=== PATIENT | female | born 1995 | race Two or more races ===

== ENCOUNTER → 2020-04-14 15:22 | Outpatient (BNVA) | payer OTHER, SELFPAY | PROVIDERS: Visit Provider Hospitalist | DX: J45.909 Unspecified asthma, uncomplicated (principal); J38.5 Laryngeal spasm; Z79.899 Other long term (current) drug therapy; Z23 Encounter for immunization | CPT/HCPCS: 90686; 99202 ==

== ENCOUNTER 2020-04-14 16:35 | Outpatient (REF) | payer OTHER, SELFPAY ==
[2020-04-14 17:53] LABS: MANUAL DIFF FLAG NO
[2020-04-14 18:03] LABS: Basophils Percent Auto 0.2 % (0-2); Eosinophils Percent Auto 0.2 % (0-4); Hematocrit 38.8 % (37-47); Hemoglobin 12.4 g/dl (12.0-16.0); Imm Gran Abs Auto 0.02 X10*3/uL (0.00-0.03); Imm Gran Pct Auto 0.3 % (0.0-0.4); Lymphocytes Absolute Auto 2.3 X10*3/uL (1.2-4.9); Mean Corpuscular Hemoglobin 28.4 pg (27.0-33.0); Mean Platelet Volume 10.2 fL (9.4-12.3); Monocytes Absolute Auto 0.4 X10*3/uL (0.1-1.2); Monocytes Percent Auto 6.7 % (2-11); Neutrophils Absolute Auto 3.4 X10*3/uL (2.0-8.3); Neutrophils Percent Auto 55.6 % (45-73); Platelet Count 313 X10*3/uL (160-400); Red Blood Count 4.36 X10*6/uL (4.20-5.50); Red Cell Distribution Width 12.6 % (11.0-16.0); White Blood Count 6.1 X10*3/uL (4.8-10.8)
[2020-04-14 19:06] LABS: Erythrocyte Sedimentation Rate 13 MM/HR (0-20)
== END 2020-04-14 16:36 | disposition home or self-care (01) ==
LOC: HO.LAB 16:35
PROVIDERS: Visit Provider Hospitalist
DX: J45.909 Unspecified asthma, uncomplicated (principal)
CPT/HCPCS: 36415; 82785; 85025; 85652; 86003

== ENCOUNTER 2020-04-27 15:57 | Outpatient (REF) | payer OTHER, SELFPAY ==
--- NOTE | 2020-04-27 17:36 | PFT_ITS ---
INDICATION: Asthma. SPIROMETRY: The FEV1 to FVC of 88% with an FEV1 of 2.64 L, which is 93% predicted, and an FVC 3.01 L, which is 92% predicted. No significant response to bronchodilators noted. Maximum voluntary ventilation 99% predicted. LUNG VOLUMES: Total lung capacity 103% predicted with residual volume of 134% predicted. Expiratory reserve volume 42% predicted. DIFFUSION CAPACITY: DLCO 105% predicted. COMPARISONS: None. INTERPRETATION: No obstructive ventilatory defect. No significant response to bronchodilators noted. Normal maximum voluntary ventilation. Lung volumes do demonstrate some air trapping likely secondary to small airways disease. Diffusion capacity is within normal limits. If asthma is in the differential, methacholine challenge may be helpful in assessing for hyper-reactive airways, otherwise clinical correlation warranted. Hernán Sarmiento MD MR/MODL / [id number]
== END 2020-04-27 15:58 | disposition home or self-care (01) ==
LOC: HO.RESP 15:57
PROVIDERS: Visit Provider Hospitalist
DX: J45.909 Unspecified asthma, uncomplicated (principal)
CPT/HCPCS: 94060; 94727; 94729

== ENCOUNTER → 2020-05-11 15:41 | Outpatient (BNVA) | payer OTHER, SELFPAY | PROVIDERS: Visit Provider Hospitalist | DX: J45.909 Unspecified asthma, uncomplicated (principal); J38.5 Laryngeal spasm; T78.40XA Allergy, unspecified, initial encounter | CPT/HCPCS: 99212 ==

== ENCOUNTER → 2020-09-08 15:24 | Outpatient (BNVA) | payer OTHER, SELFPAY | PROVIDERS: Visit Provider Hospitalist | DX: J45.40 Moderate persistent asthma, uncomplicated (principal); J38.5 Laryngeal spasm; K21.9 Gastro-esophageal reflux disease without esophagitis | CPT/HCPCS: 99212 ==

== ENCOUNTER → 2020-12-10 15:06 | Outpatient (BNVA) | payer OTHER, SELFPAY | PROVIDERS: Visit Provider Hospitalist | DX: R09.81 Nasal congestion (principal); K21.9 Gastro-esophageal reflux disease without esophagitis; T78.40XA Allergy, unspecified, initial encounter; X58.XXXA Exposure to other specified factors, initial encounter; J45.909 Unspecified asthma, uncomplicated; J38.5 Laryngeal spasm; Z79.899 Other long term (current) drug therapy | CPT/HCPCS: 99212 ==

== ENCOUNTER 2021-04-19 12:49 | Outpatient (RCR) | payer OTHER, SELFPAY ==
--- NOTE | 2021-04-20 12:27 | MHC.SP.ADU ---
Referring provider: Hernán Santos MD Reason for Referral: Voice Assessment, c/o laryngospasm Type of Treatment: 54618 Behavioral and Qualitative Analysis of Voice and Resonance Date of Plan of Treatment: 04/19/21 Onset of Symptoms/Illness: 04/19/21 Date Treatment Started: 04/19/21 Medical Diagnosis: Laryngospasm, Decreased Vocal Cord Adduction noted on Laryngoscopy (12/10/20). Primary Speech Language Diagnosis: R49.8 Unspecified voice and resonance disorders Secondary Speech Language Diagnosis: History Radha is a 25 year old young woman referred today due to a complaint of episodic laryngospasm, which can interfere with speaking, breathing and swallowing, by her report. She has a long history of Asthma as a primary medical complaint, and has frequent episodes of shortness of breath. Radha reports that she was previously seen at [facility] when she was 20 years old, for respiratory therapy, following and episode where her diaphragm spasmed and prevented her from breathing for over two minutes. Therapists there determined that the difficulty was related to diaphragmatic movement and worked with her to learn how to perceive and control her breathing. Her current, ongoing issue is related to speaking: She has episodes where she feels she cannot initiate voicing to speak; breathing: she has episodes where she feels her larynx is closed or tight and she has difficulty breathing; and Swallowing: She has times where she feels her throat is blocked and she cannot swallow. She reports that these conditions are worse when she is talking a lot, or trying to talk loudly to be heard and when she has been laughing or had difficulty controlling her laughter. 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 Radha reports that the frequency of episodes has been increasing recently, and she may have episodes 3-5 times a week. She expressed particular concern about the difficulty she has had with swallowing. Medical History: Acid Reflux Arthritis Asthma Medication List: Please see Medical Chart: Radha is on a variety of medications related to her Asthma diagnosis, that include both rescue and maintenance inhalers. Recent Hospitalizations: No Respiratory Needs: Room Air Patient Orientation: Alert & Oriented x 4 Social History: Highest level of education obtained: Completed Bachelor's Current Living Situation: Radha reports that she is single and has a young son. She reports that she currently lives with a roommate in her household. Assistive Devices in use: None Past Speech Language Therapy: None Other Therapies Seen in Current Calendar Year: None Other: Radha was seen for Respiratory Therapy at [facility] five years ago. She reports that they worked on teaching her how to regulate her breathing. Swallowing History: Dysphagia Specific: Within Functional Limits Reported Speech, Language, Cognition difficulties: Voice Comments: Mildred reports that her vocal difficulty is episodic, and times difficult to predict. She reports that she has most difficulty in situation where she has been actively talking or laughing. Quality of Life: Sporadic episodes can effect speaking, breathing and swallowing, which Radha expresses as being stressful and frustrating at time. Patient Stated Goal of Speech-Language Therapy: Provide strategies to manage episodes of laryngospasm and improve vocal health. Assessment Speech Production: Clinical Impression: WNL Voice Assessment: Voice Loudness: Normal Voice Nasal Resonance: Normal Voice Oral Resonance: Normal Voice Phonatory-based Quality: Mild vocal difference due to phonation breaks Voice Pitch: Normal Clinical Impression: The Consensus Auditory-Perceptual Evaluation of Voice (CAPE-V) was used to assess Vocal function today. On this assessment, Radha presents functionally with mild vocal difference, primarily related to phonation breaks when sustaining /a/. This feature is likely related to the noted reduced laryngeal cord adduction, noted on a recent Laryngoscopy. However, her chief complaint relates to an intermittent laryngeal spasm, which not observed on assessment today, and would be difficult to capture in this setting, given the functional report given. Mildred also has episodes of difficulty swallowing. In a direct observation of a volitional swallow, Radha presents with no functional swallow difficulty, although she presented with a mildly odd posture of lifting her chin during swallow. Given Radha's primary complaint of laryngospasm, she would benefit from therapeutic intervention focused on breath control and relaxation techniques to resolve a spasm event without having a secondary reaction (e.g. anxiety response). Impressions and Recommendations Summary: Impact on Daily Function/Activity Limitations: Daily Activities: Mild Interpersonal Interactions: Mild Education: None Employment: None Community: None Prognosis for Improvement: Good Comment: Focus of therapy was discussed with Radha and the end of the evaluation, as she reported that previous RT therapy had focused on breathing exercises, which she had some difficulty with. The primary focus of recommended course of therapy with speech therapy will also be focused on breath control for both sustaining voice and relaxation techniques. Recommendation for Speech Therapy: Frequency/Duration: Date Range for Service Requested: Time to Reassess: Correction Goals: Radha will use breathing strategies to sustain vocalization and recover/rebound from laryngospasm events interfering with speaking or swallowing. Short Term Goals: Goal # : Kerryttxi will use diaphragmatic breathing to sustain phonation and volume of specific sounds for 20 seconds. Goal Status: Goal# : Radha will demonstrate sustaining a circular breathing technique for relaxation/resumption of phonation following a spasm event, for a period of three minutes. 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
== END 2021-08-30 15:44 | disposition home or self-care (01) ==
LOC: HO.SH 12:49
PROVIDERS: Visit Provider Hospitalist
DX: J38.5 Laryngeal spasm (principal); J38.3 Other diseases of vocal cords
CPT/HCPCS: 92524

== ENCOUNTER → 2021-04-19 13:56 | Outpatient (BNVA) | payer OTHER, SELFPAY | PROVIDERS: Visit Provider Hospitalist | DX: J45.40 Moderate persistent asthma, uncomplicated (principal); J38.5 Laryngeal spasm; R09.81 Nasal congestion; K21.9 Gastro-esophageal reflux disease without esophagitis; T78.40XD Allergy, unspecified, subsequent encounter | CPT/HCPCS: 90471; 90686; 99212 ==

== ENCOUNTER 2021-08-30 14:00 | Outpatient (RCR) | payer OTHER, SELFPAY | END 2021-08-30 15:44 | disposition home or self-care (01) | LOC: HO.SH 14:00 | PROVIDERS: Visit Provider Hospitalist | DX: J38.5 Laryngeal spasm (principal); J38.3 Other diseases of vocal cords | CPT/HCPCS: 92507 ==

== ENCOUNTER → 2021-09-09 13:10 | Outpatient (BNVA) | payer OTHER, SELFPAY | PROVIDERS: Visit Provider Hospitalist | DX: J45.40 Moderate persistent asthma, uncomplicated (principal); J38.5 Laryngeal spasm; R09.81 Nasal congestion; T78.40XD Allergy, unspecified, subsequent encounter; K21.9 Gastro-esophageal reflux disease without esophagitis; Z79.899 Other long term (current) drug therapy | CPT/HCPCS: 99212 ==

== ENCOUNTER → 2022-03-18 12:56 | Outpatient (BNVA) | payer OTHER, SELFPAY | PROVIDERS: Visit Provider Hospitalist | DX: J45.40 Moderate persistent asthma, uncomplicated (principal); R09.81 Nasal congestion; J38.5 Laryngeal spasm; K21.9 Gastro-esophageal reflux disease without esophagitis; T78.40XD Allergy, unspecified, subsequent encounter; Z23 Encounter for immunization | CPT/HCPCS: 90471; 90686; 99212 ==

== ENCOUNTER 2022-09-23 15:00 | Outpatient (REF) | payer OTHER, SELFPAY ==
[2022-09-23 16:16] LABS: MANUAL DIFF FLAG NO
[2022-09-23 17:35] LABS: Basophils Percent Auto 0.5 % (0-2); Eosinophils Percent Auto 0.3 % (0-4); Hematocrit 41.3 % (37.0-47.0); Lymphocytes Absolute Auto 2.2 X10*3/uL (1.2-4.9); Lymphocytes Percent Auto 36.1 % (20-40); Mean Corpuscular HGB Conc 31.5 g/dl (31.0-35.0); Mean Corpuscular Hemoglobin 27.8 pg (27.0-33.0); Mean Corpuscular Volume 88.4 fL (80.0-98.0); Mean Platelet Volume 10.1 fL (9.4-12.3); Monocytes Absolute Auto 0.4 X10*3/uL (0.1-1.2); Monocytes Percent Auto 6.9 % (2-11); Neutrophils Absolute Auto 3.4 x10*3/uL (2.0-8.3); Neutrophils Percent Auto 56.2 % (45-73); Platelet Count 340 X10*3/uL (160-400); Red Blood Count 4.67 X10*6/uL (4.20-5.50); Red Cell Distribution Width 13.2 % (11.0-16.0)
[2022-09-23 18:08] LABS: Anion Gap 13 (12-20); Blood Urea Nitrogen 11 mg/dL (9-16); Calcium 9.8 mg/dL (8.4-10.2); Carbon Dioxide 27 mmol/L (22-29); Chloride 103 mmol/L (96-108); Estimated Glomerular Filt Rate > 60; Glucose Random 83 mg/dL (60-115); Potassium 4.4 mmol/L (3.3-5.1); Sodium 139 mmol/L (135-145)
[2022-09-23 18:10] LABS: D Dimer High Sensitivity < 150 NG/ML
[2022-09-23 18:18] LABS: Troponin-I High Sensitivity < 2.7 ng/L (<3.5-17.0)
[2022-09-23 18:59] LABS: Erythrocyte Sedimentation Rate 13 MM/HR (0-20)
== END 2022-09-23 15:01 | disposition home or self-care (01) ==
LOC: HO.LAB 15:00
PROVIDERS: PCP Student in an Organized Health Care Education/Training Program; Visit Provider Hospitalist
DX: J45.40 Moderate persistent asthma, uncomplicated (principal); K21.9 Gastro-esophageal reflux disease without esophagitis; T78.40XD Allergy, unspecified, subsequent encounter; J38.5 Laryngeal spasm; R07.81 Pleurodynia; J38.3 Other diseases of vocal cords; Z79.899 Other long term (current) drug therapy
CPT/HCPCS: 36415; 80048; 84484; 85025; 85379; 85652; 99212

== ENCOUNTER 2022-11-09 13:01 | Outpatient (RCR) | payer OTHER, SELFPAY ==
--- NOTE | 2022-11-29 10:26 | MHC.SP.ADU ---
Referring provider: Hernán Santos MD Reason for Referral: Laryngospasm Type of Treatment: 46206 Behavioral and Qualitative Analysis of Voice and Resonance Date of Plan of Treatment: 11/09/22 Onset of Symptoms/Illness: 04/19/21 Date Treatment Started: 11/09/22 Medical Diagnosis: Laryngospasm Primary Speech Language Diagnosis: Secondary Speech Language Diagnosis: R49.9 Unspecified voice History Radha is a 27 year old young woman referred back to [facility] due to a complaint of episodic laryngospasm. Radha was seen by this clinician for two treatment sessions in April 2021-May 2021 to address her needs, but needed to stop treatment due to ankle surgery related to her diagnosis of Arthrogryposis. Radha reported that she needed two different surgeries and her son also had surgeries in the interim from when she was first seen, making it difficult for her to commit to a weekly therapy sessions. She reported, however, she has kept up many of the relaxation techniques instructed during therapy and remembered the strategy on focusing on breathing in with the nose during a laryngospasm event. She reported that she has not been having as frequent events of laryngospasm when compared to the first time she was seen, however stated that in August when she was having symptoms of RSV, she had a very bad attack in the middle of the night which was interrupted only by her sister finding her in the bathroom struggling to breathe. She and her sister reported the attack ended with her accessing a nasal cannula with oxygen borrowed from her mother. She otherwise reported that she now notices tension and tightness, and practices relaxation strategies to prevent escalation to a spasm event. She reported that for her surgeries she was intubated, but there was no report of her having laryngospasm during these procedures. Dmaaris has a long history of Asthma as a primary medical complaint, and has frequent episodes of shortness of breath. Radha reports that she was previously seen at [facility] when she was 20 years old, for respiratory therapy, following and episode where her diaphragm spasmed and prevented her from breathing for over two minutes. Therapists there determined that the difficulty was related to diaphragmatic movement and worked with her to learn how to perceive and control her breathing. She was later diagnosed specifically with laryngospasm by her knife sharpener. 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 Radha reports that the frequency of episodes have significantly reduced over the past year. However, as spasms have sometimes interfered with her ability to swallow, she notes that she stops eating at the point she might have any difficulty, to avoid choking or spitting out food. Medical History: Acid Reflux Arthritis Asthma Other: Congenital Arthrogryposis Medication List: Please see chart. Radha is on a variety of medications related to her Asthma diagnosis, that include both rescue and maintenance inhalers. Recent Hospitalizations: No Respiratory Needs: Room Air Patient Orientation: Alert & Oriented x 4 Social History: Current Living Situation: Radha is a single mother to her young son. She is currently living in a private home with members of her extended family. Past Speech Language Therapy: 04/18/21-06/29/21 Outpatient therapy for laryngospasm Other Therapies Seen in Current Calendar Year: Physical Therapy Swallowing History: Dysphagia Specific: Comments: Damaris reports episodic difficulty swallowing. On brief evaluation of swallow today, all aspects presented within normal limits. Reported Speech, Language, Cognition difficulties: Voice Comments: Damaris reports continued, if diminished, episodes of Laryngospasm, including an alarming episode where she ceased to be able to breath for a period until the spasm was interrupted with the assistance of her sister. She has learned some management strategies, but is seeking continued therapeutic intervention for her needs. Quality of Life: Excellent Patient Stated Goal of Speech-Language Therapy: Provide strategies to manage episodes of laryngospasm and improve vocal health. Assessment Voice Assessment: Voice Loudness: Normal Voice Nasal Resonance: Normal Voice Oral Resonance: Normal Voice Phonatory-based Quality: Normal Voice Pitch: Normal Voice Other Observations: Inadequate Breath Support Clinical Impression: Impaired Clinicial Observations: The Consensus Auditory-Perceptual Evaluation of Voice (CAPE-V) was used to assess Vocal function today. On this assessment, Radha presents functionally with vocal production and voice use within functional limits, with improved clarity of phonation when compared to her previous assessment. On sustained production of vowel phonemes /I/ and /a/ she had slightly reduced length of sustaining the sounds (3-5 seconds). On diadochokinetic sequences, she demonstrated a mild dysrhythmia which was not clinically significant. Although Radha presents with most aspects of voice production within functional expectations, she has previously been diagnosed by her Precision Aircraft Structure Assembler with laryngospasm, and infrequently occurring, but alarming Musculo-vocal pathology. She would benefit from therapeutic intervention focused on breath control and relaxation techniques to resolve a spasm event without having a secondary reaction (e.g. anxiety response). Impressions and Recommendations Summary: Radha demonstrates some improvement in her vocal function and reports that use of techniques previously learned in therapy has improved her management of infrequent episodes of laryngo spasm. However, she continues to have events where she has difficulty breathing, speaking or swallowing. She would benefit from returning to therapy for a period of reinforcement of relaxation and breathing techniques to assist with avoiding or interrupting events of laryngeal spasm. Impact on Daily Function/Activity Limitations: Daily Activities: Mild Interpersonal Interactions: Mild Education: Mild Employment: Mild Community: Mild Prognosis for Improvement: Good Comment: Recommendation for Speech Therapy: Outpatient Speech Therapy Frequency/Duration: One thirty to forty-five minute session weekly for a period of 4-6 weeks. Date Range for Service Requested: Time to Reassess: PRN Group Home Goals: Radha will use breathing strategies to sustain breathing and vocalization and recover/rebound from laryngospasm events. Short Term Goals: Goal # : Radha will use diaphragmatic breathing to sustain phonation and volume of specific sounds for 12 seconds. Goal Status: Goal# : Radha will demonstrate sustaining a circular breathing technique for relaxation/resumption of phonation following a spasm event, for a period of three minutes. Goal Status: Goal # : With direct instruction, Radha will demonstrate strategies for laryngeal massage to reduce tension in structures associate with the larynx for a period of three minutes. Goal Status: Goal # : Radha will self monitor episodes of larygospasm and use a strategy to interrupt and resume activity in 4/5 contexts Goal Status: Recommended Referrals to be Discussed with Primary Care Provider: Patient Education: Completed: Yes Patient/Caregiver Education: Described Results of Evaluation Patient expressed understanding of evaluation Comments/Barriers to Learning: Director Of Marketing [employer] Clinican/Clinical Fellow: No Supervisory Statement: N/A Speech Language Pathologist: Felicity Padilla M.A., CCC-FISHER [employer]
== END 2023-01-31 13:27 | disposition still patient (30) ==
LOC: HO.SH 13:01
PROVIDERS: Visit Provider Hospitalist
DX: R49.9 Unspecified voice and resonance disorder (principal)
CPT/HCPCS: 92524

== ENCOUNTER 2023-01-13 14:51 | Outpatient (AMB) | payer OTHER, SELFPAY ==
--- NOTE | 2023-01-13 15:02 | A.OFFVIS_ITS ---
Intake Vital Signs 01/13/23 15:04 Height 4 ft 11 in Weight 139 lb 5.314 oz BMI 28.1 Pulse 78 Pulse Source Pulse Oximeter Pulse Oximetry (%) 100 Oxygen Delivery Method Room Air Intake Visit Reasons: Asthma Harbor Tug Captain Required: No Allergies No Known Allergies Allergy (Verified 01/13/23 15:04) HPI HPI Comments History of Present Illness Details The patient is a 27-year-old woman with a known history asthma. She states that she has been diagnosed with asthma as a child. She never he was hospitalized for however. She has not required any prednisone. And overall she had been doing very well for many years. More recently she did have a child. After she gave to her son about a year ago she started developing worsening shortness of breath. She has also has had worsening cough. She has had a few episodes where she felt she could not get any air in to her lungs. She has use her rescue inhaler with only partial resolution of the symptoms. On further questions she has had formal allergy testing in the past. She is allergic to multiple things. She was offered allergy shots but she deferred at the time. 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 Those were surgically treated at [facility]. In regards of medications she does use her rescue inhaler as needed couple times a week. She was given a prescription for Breo which she started using initially but then stopped after no significant improvement. 05/11/2020 the patient is here for pulmonary follow-up visit. Overall she is doing well. She has not had any significant coughing spells or significant shortness of breath. She has not had to use her rescue inhaler. Although, when she did perform the pulmonary function studies she did have a hard time afterwards with tremulousness and some shortness of breath. Her symptoms did improve and she did not need any medical intervention. It is likely that she had a reaction to the albuterol and also with the forced exhalation. Patient left the office without letting us know that she was uncomfortable with symptoms. In the meantime she did have allergy testing which was all negative which is reassuring. She also had PFTs that appear to be normal. Although, she did have some significant air trapping which is likely suggestive of small airways disease which could be seen with asthma. The patient also had 1 flow volume loop with some plateauing of the inspiratory limb which could be i ndicative of some dynamic obstruction due to vocal cord dysfunction. 09/23/2022 The patient is here for a pulmonary follow up visit. The patient is still having episodic shortness of breath. Moderate in severity. Related to laryngospasms. Also complaining of chest pain, pleuritic in nature, mild to moderate. Also associated with palpitations, better right now. Also having leg swelling. She is post op right foot surgery. I will have her undergo bloodwork and an EKG. She is using her respiratory therapy. RYAN as needed less than 2 times a week. 01/13/2023 The patient is here for a pulmonary follow up visit. Overall doing better. Still requires her SBA, but less than 2 times a week. Continue to use melatonin for sleep with good response. Continues to work on her exercises for her VCD. No recent labs/CXR to review. [facility] Medical History (Updated 09/23/22 @ 15:41 by Hernán Sarmiento MD) Allergic reaction Asthma Clubbed foot GERD (gastroesophageal reflux disease) Laryngeal spasm Nasal congestion Pleuritic chest pain Vocal cord dysfunction Family History (Updated 04/15/20 @ 22:40 by Hernán Sarmiento MD) Other Asthma Social History (Updated 04/19/21 @ 14:07 by Rose Smith COUNTS INCLUDE 234 BEDS AT THE [facility]) Patient Tobacco Use Status: Never used Tobacco Review of Systems Const Reports difficulty sleeping and Denies night sweats ENT Denies change in voice, Denies lip swelling, Denies mouth pain, Reports nasal congestion, Reports nasal discharge and Denies tongue swelling Card Denies chest pain and Denies dyspnea Resp Reports cough, Denies pain on inspiration, Denies pain with cough, Denies dyspnea and Denies wheezing GI Denies abdominal pain, Reports dyspepsia and Reports heartburn Musc Denies no additional complaints Neuro Denies Neuro-related abnormal movements Psych Denies no additional complaints Jayy/Lymph Denies easy bleeding and Denies lymphadenopathy Aller/Immun Denies lip swelling, Denies tongue swelling and Denies wheezing Physical Exam Vital Signs: Last Vital Signs Pulse 78 01/13/23 15:04 Pulse Ox 100 01/13/23 15:04 Oxygen Delivery Method Room Air 01/13/23 15:04 BMI result Body Mass Index 28.1 Const General: alert Neck Neck: Yes normal visual inspection, Yes full ROM and Yes no lymphadenopathy Chest Chest palpation & inspection: normal inspection of the chest Resp Effort & Inspection: normal respiratory effort Auscultation: clear to auscultation bilaterally Cardio Rate: regular rate Rhythm: regular rhythm Heart sounds: S1 normal heart sound present and S2 normal heart sound present GI Palpation (GI): Soft to palpation and nontender Auscultation: normal bowel sounds Skin General skin exam: rashes and/or lesions noted Extrem General: Yes no clubbing, cyanosis or edema Left lower extremity: foot (cast) Assessment & Plan Assessment & Plan (1) Asthma: Code(s): J45.909 - Unspecified asthma, uncomplicated Qualifiers: Asthma severity: moderate Asthma persistence: persistent Asthma complication type: uncomplicated Qualified Code(s): J45.40 - Moderate persistent asthma, uncomplicated (2) Nasal congestion: Code(s): R09.81 - Nasal congestion (3) GERD (gastroesophageal reflux disease): Code(s): K21.9 - Gastro-esophageal reflux disease without esophagitis Qualifiers: Esophagitis presence: without esophagitis Qualified Code(s): K21.9 - Gastro-esophageal reflux disease without esophagitis (4) Allergic reaction: Comment: Has had significant allergic episodes although her testing was all negative Code(s): T78.40XA - Allergy, unspecified, initial encounter Qualifiers: Encounter type: subsequent encounter Qualified Code(s): T78.40XD - Allergy, unspecified, subsequent encounter (5) Laryngeal spasm: Code(s): J38.5 - Laryngeal spasm (6) Vocal cord dysfunction: Code(s): J38.3 - Other diseases of vocal cords Plan speech therapy Melatonin at night for sleep Continue Singulair Continue Fluticasone nasal spray Continue Astelin nasal spray Nasal rinsing with neti bottle Benzonates as needed for cough RYAN as needed F/U 6-8 months Medications: Changed From albuterol sulfate 90 mcg/actuation 2 puffs PO Q6H PRN 8.5 grams 0RF for wheezing To albuterol sulfate 90 mcg/actuation 2 puffs inhalation Q6H PRN 8.5 grams 11RF for wheezing Refilled benzonatate 200 mg PO BID 30 days PRN 60 caps 6RF cough melatonin 5 mg PO BEDTIME PRN 30 tabs 11RF for insomnia Coding Level of Care Code Est Pt Level 4 (95337) Diagnoses Asthma J45.40 Asthma severity: moderate Asthma persistence: persistent Asthma complication type: uncomplicated Nasal congestion R09.81 GERD (gastroesophageal reflux disease) K21.9 Esophagitis presence: without esophagitis Allergic reaction T78.40XD Encounter type: subsequent encounter Laryngeal spasm J38.5 Vocal cord dysfunction J38.3 Time Spent (min) 17
[2023-01-13 15:04] VITALS: PULSE 78; O2SAT 100; BMI 28.1
== END 2023-01-13 15:38 | disposition home or self-care (01) ==
PROVIDERS: PCP Student in an Organized Health Care Education/Training Program; Visit Provider Hospitalist
DX: J45.40 Moderate persistent asthma, uncomplicated (principal); R09.81 Nasal congestion; K21.9 Gastro-esophageal reflux disease without esophagitis; T78.40XD Allergy, unspecified, subsequent encounter; J38.5 Laryngeal spasm; J38.3 Other diseases of vocal cords
CPT/HCPCS: 99214

== ENCOUNTER → 2023-01-13 14:51 | Outpatient (BNVA) | payer OTHER, SELFPAY | PROVIDERS: Visit Provider Hospitalist | DX: J45.40 Moderate persistent asthma, uncomplicated (principal); J38.5 Laryngeal spasm; J38.3 Other diseases of vocal cords; T78.40XD Allergy, unspecified, subsequent encounter; R09.81 Nasal congestion; K21.9 Gastro-esophageal reflux disease without esophagitis | CPT/HCPCS: 99212 ==

== ENCOUNTER 2023-02-28 13:00 | Outpatient (RCR) | payer OTHER, SELFPAY ==
--- NOTE | 2023-03-02 15:05 | MHC.SL.SOA ---
Referring Provider: Hernán Santos MD Reason for Referral: Laryngospasm Date of Plan of Treatment:11/09/22 Onset of Symptoms/Illness:04/19/21 Date Treatment Started:11/09/22 Medical Diagnosis:Asthma, Gerd, Anxiety, Arthrogryposis Primary Speech Language Diagnosis:Laryngospasm Secondary Speech Language Diagnosis: Number of Authorized Visits Remaining: Authorization End Date: Reason for Visit:[id number] Individual Treatment Other: Subjective:Damaris arrived on time for her appointment with her sister this week, who joined us for the session. Damaris was highly cooperative, motivated and demonstrated good self awareness/self reflection throughout the session. Damaris has met the objectives expected for this period of therapeutic instruction and demonstrated today competence with strategies instructed, as well as increased awareness of triggers, symptoms and interventions related to an episode of laryngospasm. Recommend discharge from speech therapy at this time. Objective: Conrad practiced strategies intended to manage and prevent episodes of laryngeal spasm, including relaxation strategies, breathing techniques and massage. Assessment:Goal #1: Conrad used appropriate breath support to increase and decrease volume on number sequences with 100% accuracy. She produced a paragraph length narrative with appropriate, easeful speech production. She sustained speech sounds for 12 seconds with easeful breath support with 100% accuracy Goal #2: Conrad practiced constructive rest using visualization strategies and breath support with 100% accuracy. Goal #3: Circumlaryngeal massage was reviewed and practiced, with Conrad independently demonstrating the strategy with 100% accuracy Goal #4: Damaris again reported that when she feels muscle tension rising in context, she will pull out and work on relaxation strategies to prevent symptoms from escalating. She was given some additional strategies/suggestions for managing cold symptoms which have previously triggered a spasm (e.g. take cough suppressants, elevate head at night, hydrate and keep water at bedside at night, use nasal inhalation to break a spasm). Notes: Plan: Goal # : Radha will use diaphragmatic breathing to sustain phonation and volume of specific sounds for 12 seconds. Status of Goal: Goal # : Radha will demonstrate sustaining a circular breathing technique for relaxation/resumption of phonation following a spasm event, for a period of three minutes. Status of Goal: Goal # : With direct instruction, Radha will demonstrate strategies for laryngeal massage to reduce tension in structures associate with the larynx for a period of three minutes. Status of Goal: Goal # : Radha will self monitor episodes of larygospasm and use a strategy to interrupt and resume activity in 4/5 contexts Status of Goal: Seen by: Graduate/Clinical Fellow: No Supervisory Statement: f_Reg Query Last Value , MHC.AU.SIGNATUR Speech Language Pathologist: Felicity Padilla M.A., CCC-VALIDATION SCIENTIST
== END 2023-03-07 13:57 | disposition home or self-care (01) ==
LOC: HO.SH 13:00
PROVIDERS: Visit Provider Hospitalist
DX: J38.3 Other diseases of vocal cords (principal)
CPT/HCPCS: 92507

== ENCOUNTER 2023-11-01 15:57 | Outpatient (REF) | payer OTHER, SELFPAY ==
[2023-11-01 16:15] LABS: MANUAL DIFF FLAG NO
[2023-11-01 17:23] LABS: Basophils Percent Auto 0.2 % (0-2); Eosinophils Percent Auto 0.2 % (0-4); Hematocrit 35.5 % (37.0-47.0); Hemoglobin 11.4 g/dl (12.0-16.0); Imm Gran Abs Auto 0.03 X10*3/uL (0.00-0.03); Imm Gran Pct Auto 0.4 % (0.0-0.4); Lymphocytes Absolute Auto 2.7 X10*3/uL (1.2-4.9); Lymphocytes Percent Auto 32.6 % (20-40); Mean Corpuscular HGB Conc 32.1 g/dl (31.0-35.0); Mean Corpuscular Volume 87.2 fL (80.0-98.0); Monocytes Absolute Auto 0.6 X10*3/uL (0.1-1.2); Monocytes Percent Auto 6.9 % (2-11); Neutrophils Absolute Auto 4.9 x10*3/uL (2.0-8.3); Neutrophils Percent Auto 59.7 % (45-73); Platelet Count 280 X10*3/uL (160-400); Red Blood Count 4.07 X10*6/uL (4.20-5.50); Red Cell Distribution Width 14.2 % (11.0-16.0); White Blood Count 8.2 X10*3/uL (4.8-10.8)
[2023-11-01 18:03] LABS: Erythrocyte Sedimentation Rate 14 MM/HR (0-20)
[2023-11-06 10:08] LABS: IgA 160 mg/dL (47-310); IgG 1044 mg/dL (600-1640); IgM 268 mg/dL (50-300)
== END 2023-11-01 15:58 | disposition home or self-care (01) ==
LOC: HO.LAB 15:57
PROVIDERS: Visit Provider Hospitalist
DX: J40 Bronchitis, not specified as acute or chronic (principal)
CPT/HCPCS: 36415; 82784; 85025; 85652

== ENCOUNTER 2023-11-02 15:06 | Outpatient (AMB) | payer OTHER, SELFPAY ==
--- NOTE | 2023-11-02 15:22 | MHC.OFFVIS ---
Vital Signs 11/02/23 15:23 Height 4 ft 11 in Weight 150 lb BMI 30.3 Pulse 89 Pulse Source Pulse Oximeter Pulse Oximetry (%) 99 Oxygen Delivery Method Room Air Intake Visit Reasons: Asthma Allergies No Known Allergies Allergy (Verified 01/13/23 15:04) HPI Comments Details: The patient is a 28-year-old woman with a known history asthma. She states that she has been diagnosed with asthma as a child. She never he was hospitalized for however. She has not required any prednisone. And overall she had been doing very well for many years. More recently she did have a child. After she gave to her son about a year ago she started developing worsening shortness of breath. She has also has had worsening cough. She has had a few episodes where she felt she could not get any air in to her lungs. She has use her rescue inhaler with only partial resolution of the symptoms. On further questions she has had formal allergy testing in the past. She is allergic to multiple things. She was offered allergy shots but she deferred at the time. 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 Those were surgically treated at [facility]. In regards of medications she does use her rescue inhaler as needed couple times a week. She was given a prescription for Breo which she started using initially but then stopped after no significant improvement. 05/11/2020 the patient is here for pulmonary follow-up visit. Overall she is doing well. She has not had any significant coughing spells or significant shortness of breath. She has not had to use her rescue inhaler. Although, when she did perform the pulmonary function studies she did have a hard time afterwards with tremulousness and some shortness of breath. Her symptoms did improve and she did not need any medical intervention. It is likely that she had a reaction to the albuterol and also with the forced exhalation. Patient left the office without letting us know that she was uncomfortable with symptoms. In the meantime she did have allergy testing which was all negative which is reassuring. She also had PFTs that appear to be normal. Although, she did have some significant air trapping which is likely suggestive of small airways disease which could be seen with asthma. The patient also had 1 flow volume loop with some plateauing of the inspiratory limb which could be indicative of some dynamic obstruction due to vocal cord dysfunction. 11/02/2023 The patient is here for a sick visit. Having worsening productive cough for 2 weeks. Moderate in severity, although, seems to be getting a little better. +sick contacts. He inhaler does not seem to be helping. She did have bloodwork, but someis still pending. Still having laryngospams, but, overall better. She did comeplete the speech therapy sessions. [facility] Medical History (Updated 10/30/23 @ 15:35 by Hernán Sarmiento MD) Bronchitis Pleuritic chest pain Vocal cord dysfunction Nasal congestion GERD (gastroesophageal reflux disease) Clubbed foot Allergic reaction Asthma Laryngeal spasm Family History (Updated 04/15/20 @ 22:40 by Hernán Sarmiento MD) Other Asthma Social History (Updated 04/19/21 @ 14:07 by Rose Smith [facility]) Patient Tobacco Use Status: Never used Tobacco Review of Systems Const Reports difficulty sleeping and Denies night sweats ENT Denies change in voice, Denies lip swelling, Denies mouth pain, Reports nasal congestion, Reports nasal discharge and Denies tongue swelling Card Denies chest pain and Denies dyspnea Resp Reports chest congestion, Reports cough, Denies pain on inspiration, Denies pain with cough, Denies dyspnea and Denies wheezing GI Denies abdominal pain, Reports dyspepsia and Reports heartburn Musc Denies no additional complaints Neuro Denies Neuro-related abnormal movements Psych Denies no additional complaints Jayy/Lymph Denies easy bleeding and Denies lymphadenopathy Aller/Immun Denies lip swelling, Denies tongue swelling and Denies wheezing Physical Exam Vital Signs: Last Vital Signs Pulse 89 11/02/23 15:23 Pulse Ox 99 11/02/23 15:23 Oxygen Delivery Method Room Air 11/02/23 15:23 BMI result Body Mass Index 30.3 Const General: alert Neck Neck: Yes normal visual inspection, Yes full ROM and Yes no lymphadenopathy Chest Chest palpation & inspection: normal inspection of the chest Resp Effort & Inspection: normal respiratory effort Auscultation: clear to auscultation bilaterally Cardio Rate: regular rate Rhythm: regular rhythm Heart sounds: S1 normal heart sound present and S2 normal heart sound present GI Palpation (GI): Soft to palpation and nontender Auscultation: normal bowel sounds Skin General skin exam: rashes and/or lesions noted Extrem General: Yes no clubbing, cyanosis or edema Left lower extremity: foot (cast) Assessment & Plan Assessment & Plan (1) Asthma: Code(s): J45.909 - Unspecified asthma, uncomplicated Category: Medical Qualifiers: Asthma complication type: uncomplicated Asthma persistence: persistent Asthma severity: moderate Qualified Code(s): J45.40 - Moderate persistent asthma, uncomplicated (2) Nasal congestion: Code(s): R09.81 - Nasal congestion Category: Medical (3) GERD (gastroesophageal reflux disease): Code(s): K21.9 - Gastro-esophageal reflux disease without esophagitis Category: Medical Qualifiers: Esophagitis presence: without esophagitis Qualified Code(s): K21.9 - Gastro-esophageal reflux disease without esophagitis (4) Allergic reaction: Comment: Has had significant allergic episodes although her testing was all negative Code(s): T78.40XA - Allergy, unspecified, initial encounter Category: Medical Qualifiers: Encounter type: subsequent encounter Qualified Code(s): T78.40XD - Allergy, unspecified, subsequent encounter (5) Laryngeal spasm: Code(s): J38.5 - Laryngeal spasm Category: Medical (6) Vocal cord dysfunction: Code(s): J38.3 - Other diseases of vocal cords Category: Medical Plan start Advair HFA BID start zpack start zyrtec RYAN as needed Continue Singulair Continue Fluticasone nasal spray barium swallow Benzonates as needed for cough F/U 4-6 months Orders: Orders FL barium swallow 11/02/23 K21.9 - Gastro-esophageal reflux disease without esophagitis Medications: New fluticasone propion-salmeterol 115-21 mcg/actuation (Advair HFA) 2 puffs inhalation Q12H 12 grams 11RF 30 days cetirizine (Zyrtec) 10 mg PO DAILY PRN 30 tabs 6RF allergy symptoms 30 days Coding Level of Care Code Est Pt Level 4 (78817) Diagnoses Moderate persistent asthma without complication J45.40 Asthma complication type: uncomplicated Asthma persistence: persistent Asthma severity: moderate Nasal congestion R09.81 Gastroesophageal reflux disease without esophagitis K21.9 Esophagitis presence: without esophagitis Allergic reaction, subsequent encounter T78.40XD Encounter type: subsequent encounter Laryngeal spasm J38.5 Vocal cord dysfunction J38.3 Time Spent (min) 16
[2023-11-02 15:23] VITALS: PULSE 89; O2SAT 99; BMI 30.3
== END 2023-11-02 15:56 | disposition home or self-care (01) ==
PROVIDERS: PCP Student in an Organized Health Care Education/Training Program; Visit Provider Hospitalist
DX: J45.40 Moderate persistent asthma, uncomplicated (principal); R09.81 Nasal congestion; K21.9 Gastro-esophageal reflux disease without esophagitis; T78.40XD Allergy, unspecified, subsequent encounter; J38.5 Laryngeal spasm; J38.3 Other diseases of vocal cords
CPT/HCPCS: 99214

== ENCOUNTER → 2023-11-02 15:06 | Outpatient (BNVA) | payer OTHER, SELFPAY | PROVIDERS: PCP Student in an Organized Health Care Education/Training Program; Visit Provider Hospitalist | DX: J45.40 Moderate persistent asthma, uncomplicated (principal); R09.81 Nasal congestion; J38.5 Laryngeal spasm; J38.3 Other diseases of vocal cords; K21.9 Gastro-esophageal reflux disease without esophagitis; T78.40XD Allergy, unspecified, subsequent encounter | CPT/HCPCS: 99212 ==

== ENCOUNTER 2024-01-15 09:01 | Outpatient (REF) | payer OTHER, SELFPAY ==
--- NOTE | ~2024-01-15 | FL_ITS ---
EXAMINATION: XR FLUOROSCOPY UPPER GI WITH AIR CLINICAL INFORMATION: Reflux. Dysphagia. COMPARISON: None TECHNIQUE: Fluoroscopic air contrast upper GI examination was performed utilizing standard techniques with thin and thick barium and effervescent granules. Numerous spot images were obtained. FINDINGS: Lateral cine images of the oropharynx and hypopharynx demonstrate normal swallow mechanism with normal epiglottic inversion and soft palate elevation. No tracheal penetration, glottic or subglottic aspiration identified. No nasopharyngeal reflux present. Hypopharyngeal structures appear normal without evidence of mass or diverticulum. There was no significant cricopharyngeal achalasia. Dual and single contrast images of the esophagus demonstrate normal caliber, contour, and mucosal pattern. No evidence of stricture, mass, or ulcerations identified. Esophageal peristalsis was normal. No evidence of hiatus hernia identified. Gastroesophageal reflux is seen up to the level the aortic arch. Dual contrast and single contrast images of the stomach demonstrated mild retained food within the gastric lumen. Normal contour and mucosal pattern. No evidence of significant ulcer or mass. A few filling defects in the fundus and body may relate to small hyperplastic polyps. Contrast freely passed into the gastric antrum and duodenal bulb without delay. Single and air-contrast images of the duodenal bulb demonstrate no abnormality. The duodenal sweep has a normal appearance, course, and mucosal fold appearance. The imaged proximal jejunum has a normal fold pattern and caliber. FLUOROSCOPY TIME: 3 minutes 22 seconds Number of Spot Images: 6 Number of Cine: 15 DOSE AREA PRODUCT: 2073 uGy-m2 (microgray-meter squared) FL/FL barium swallow with air IMPRESSION: 1. Moderate gastroesophageal reflux. 2. Mild retained food within the gastric lumen, which if the patient was truly n.p.o., suggests possible gastroparesis. 3. A few tiny filling defects in the gastric fundus and body may relate to hyperplastic polyps. This procedure was performed by Sj Romero PA-C, and supervised by Dr. Howard Electronically signed by: Rashawn Howard MD 01/18/2024 02:38 PM EDT
== END 2024-01-15 09:02 | disposition home or self-care (01) ==
LOC: HO.XRAY 09:01
PROVIDERS: PCP Student in an Organized Health Care Education/Training Program; Visit Provider Hospitalist
DX: K21.9 Gastro-esophageal reflux disease without esophagitis (principal)
CPT/HCPCS: 74221

== ENCOUNTER → 2024-01-15 09:03 | Outpatient (BNV) | payer OTHER, SELFPAY | PROVIDERS: PCP Student in an Organized Health Care Education/Training Program; Visit Provider Radiology Diagnostic Radiology | DX: R13.10 Dysphagia, unspecified (principal); K21.9 Gastro-esophageal reflux disease without esophagitis | CPT/HCPCS: 74246 ==

== ENCOUNTER 2024-03-22 14:48 | Outpatient (AMB) | payer OTHER, SELFPAY ==
[2024-03-22 14:56] VITALS: BP 118/70; PULSE 90; O2SAT 99; BMI 30.3
--- NOTE | 2024-03-22 14:56 | A.OFFVIS_ITS ---
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 She states that she has been diagnosed with asthma as a child. She never he was hospitalized for however. She has not required any prednisone. And overall she had been doing very well for many years. More recently she did have a child. After she gave to her son about a year ago she started developing worsening shortness of breath. She has also has had worsening cough. She has had a few episodes where she felt she could not get any air in to her lungs. She has use her rescue inhaler with only partial resolution of the symptoms. On further questions she has had formal allergy testing in the past. She is allergic to multiple things. She was offered allergy shots but she deferred at the time. 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 Those were surgically treated at [facility]. In regards of medications she does use her rescue inhaler as needed couple times a week. She was given a prescription for Breo which she started using initially but then stopped after no significant improvement. 05/11/2020 the patient is here for pulmonary follow-up visit. Overall she is doing well. She has not had any significant coughing spells or significant shortness of breath. She has not had to use her rescue inhaler. Although, when she did perform the pulmonary function studies she did have a hard time afterwards with tremulousness and some shortness of breath. Her symptoms did i mprove and she did not need any medical intervention. It is likely that she had a reaction to the albuterol and also with the forced exhalation. Patient left the office without letting us know that she was uncomfortable with symptoms. In the meantime she did have allergy testing which was all negative which is reassuring. She also had PFTs that appear to be normal. Although, she did have some significant air trapping which is likely suggestive of small airways disease which could be seen with asthma. The patient also had 1 flow volume loop with some plateauing of the inspiratory limb which could be indicative of some dynamic obstruction due to vocal cord dysfunction. 11/02/2023 The patient is here for a sick visit. Having worsening productive cough for 2 weeks. Moderate in severity, although, seems to be getting a little better. +sick contacts. He inhaler does not seem to be helping. She did have bloodwork, but someis still pending. Still having laryngospams, but, overall better. She did comeplete the speech therapy sessions. 03/22/2024 the patient is here for a pulmonary follow-up visit. She has had episodes of nausea vomiting and abdominal discomfort. She has been to the ED for worsening symptoms. She was found to have electrolyte derangements and she was treated accordingly for both dehydration and electrolyte derangements. She did have a barium swallow which we did review with her over the phone and we had refer her to GI. The patient does have a GI appointment coming in April. The a barium swallow did demonstrate that she has gastroparesis also severe reflux in addition to potential hyperplastic polyps in the gastric mucosa. Therefore, she is going to have to have that further evaluated when she is seen by GI. In the meantime she is agreeable to starting a small dose of Reglan. She knows about the potential side effects of tremors. Will start her on a small dose to see if can provide her with some promotility. As far as respiratory status she is doing what well. She is continue her respiratory medications as prescribed. As far as positional therapies. She is going to look into risers with the head of the bed or a wedge pillow for between the mattress. She is going to start taking in liquids with electrolytes such as Pedialyte that she can do throughout the day. Will follow-up in 3-4 months. If the patient has any worsening symptoms she will call for an earlier assessment. [facility] Medical History (Updated 03/24/24 @ 22:10 by Hernán Sarmiento MD) Dysphagia Bronchitis Pleuritic chest pain Vocal cord dysfunction Nasal congestion GERD (gastroesophageal reflux disease) Clubbed foot Allergic reaction Asthma Laryngeal spasm Family History (Updated 04/15/20 @ 22:40 by Hernán Sarmiento MD) Other Asthma Social History (Updated 04/19/21 @ 14:07 by Rose Smith [facility]) Patient Tobacco Use Status: Never used Tobacco Review of Systems Const Reports difficulty sleeping and Denies night sweats ENT Denies change in voice, Reports dysphagia, Denies lip swelling, Denies mouth pain, Reports nasal congestion, Reports nasal discharge and Denies tongue swelling Card Denies chest pain and Denies dyspnea Resp Reports chest congestion, Reports cough, Denies pain on inspiration, Denies pain with cough, Denies dyspnea and Denies wheezing GI Denies abdominal pain, Reports dysphagia, Reports dyspepsia and Reports heartburn Musc Denies no additional complaints Neuro Denies Neuro-related abnormal movements Psych Denies no additional complaints Jayy/Lymph Denies easy bleeding and Denies lymphadenopathy Aller/Immun Denies lip swelling, Denies tongue swelling and Denies wheezing Physical Exam Vital Signs: Last Vital Signs Pulse 90 03/22/24 14:56 BP 118/70 03/22/24 14:56 Pulse Ox 99 03/22/24 14:56 Oxygen Delivery Method Room Air 03/22/24 14:56 BMI result Body Mass Index 30.3 Const General: alert Neck Neck: Yes normal visual inspection, Yes full ROM and Yes no lymphadenopathy Chest Chest palpation & inspection: normal inspection of the chest Resp Effort & Inspection: normal respiratory effort Auscultation: clear to auscultation bilaterally Cardio Rate: regular rate Rhythm: regular rhythm Heart sounds: S1 normal heart sound present and S2 normal heart sound present GI Palpation (GI): Soft to palpation and nontender Auscultation: normal bowel sounds Skin General skin exam: rashes and/or lesions noted Extrem General: Yes no clubbing, cyanosis or edema Left lower extremity: foot (cast) Assessment & Plan Assessment & Plan (1) Asthma: Code(s): J45.909 - Unspecified asthma, uncomplicated Category: Medical Qualifiers: Asthma complication type: uncomplicated Asthma persistence: persistent Asthma severity: moderate Qualified Code(s): J45.40 - Moderate persistent asthma, uncomplicated (2) Nasal congestion: Code(s): R09.81 - Nasal congestion Category: Medical (3) GERD (gastroesophageal reflux disease): Code(s): K21.9 - Gastro-esophageal reflux disease without esophagitis Category: Medical Qualifiers: Esophagitis presence: without esophagitis Qualified Code(s): K21.9 - Gastro-esophageal reflux disease without esophagitis (4) Allergic reaction: Comment: Has had significant allergic episodes although her testing was all negative Code(s): T78.40XA - Allergy, unspecified, initial encounter Category: Medical Qualifiers: Encounter type: subsequent encounter Qualified Code(s): T78.40XD - Allergy, unspecified, subsequent encounter (5) Laryngeal spasm: Code(s): J38.5 - Laryngeal spasm Category: Medical (6) Vocal cord dysfunction: Code(s): J38.3 - Other diseases of vocal cords Category: Medical (7) Dysphagia: Code(s): R13.10 - Dysphagia, unspecified Category: Medical Qualifiers: Dysphagia type: unspecified Qualified Code(s): R13.10 - Dysphagia, unspecified Plan Advair HFA BID start reglan 5mg BID trial, monitor for tremors RYAN as needed Continue Singulair Continue Fluticasone nasal spray awaiting GI eval Benzonates as needed for cough F/U 4-6 months Medications: New metoclopramide HCl (Reglan) 5 mg PO QIDACHS 60 tabs 6RF 30 days Coding Level of Care Code Est Pt Level 4 (67536) Diagnoses Moderate persistent asthma without complication J45.40 Asthma complication type: uncomplicated Asthma persistence: persistent Asthma severity: moderate Nasal congestion R09.81 Gastroesophageal reflux disease without esophagitis K21.9 Esophagitis presence: without esophagitis Allergic reaction, subsequent encounter T78.40XD Encounter type: subsequent encounter Laryngeal spasm J38.5 Vocal cord dysfunction J38.3 Dysphagia, unspecified type R13.10 Dysphagia type: unspecified Time Spent (min) 17
== END 2024-03-22 15:19 | disposition home or self-care (01) ==
PROVIDERS: PCP Student in an Organized Health Care Education/Training Program; Visit Provider Hospitalist
DX: J45.40 Moderate persistent asthma, uncomplicated (principal); R09.81 Nasal congestion; K21.9 Gastro-esophageal reflux disease without esophagitis; T78.40XD Allergy, unspecified, subsequent encounter; J38.5 Laryngeal spasm; J38.3 Other diseases of vocal cords; R13.10 Dysphagia, unspecified
CPT/HCPCS: 99214

== ENCOUNTER → 2024-03-22 14:48 | Outpatient (BNVA) | payer OTHER, SELFPAY | PROVIDERS: PCP Student in an Organized Health Care Education/Training Program; Visit Provider Hospitalist | DX: J45.50 Severe persistent asthma, uncomplicated (principal); R09.81 Nasal congestion; K21.9 Gastro-esophageal reflux disease without esophagitis; T78.40XD Allergy, unspecified, subsequent encounter; J38.3 Other diseases of vocal cords; J38.5 Laryngeal spasm; R13.10 Dysphagia, unspecified | CPT/HCPCS: 99212 ==

== ENCOUNTER 2024-05-06 13:27 | Outpatient (REF) | payer OTHER, SELFPAY ==
[2024-05-06 17:36] LABS: TSH reflex Free T4 0.55 uIU/mL (0.32-4.0)
[2024-05-07 10:48] LABS: Immunoglobulin A 204 mg/dL (47-310)
[2024-05-07 20:28] LABS: Transglutaminase IgA <1.0 U/mL
[2024-05-09 21:18] LABS: Immunoglobulin E 112 kU/L (<OR=114)
== END 2024-05-06 13:28 | disposition home or self-care (01) ==
LOC: HO.LAB 13:27
PROVIDERS: PCP Student in an Organized Health Care Education/Training Program; Visit Provider Internal Medicine
DX: R93.3 Abnormal findings on diagnostic imaging of other parts of digestive tract (principal); K59.00 Constipation, unspecified
CPT/HCPCS: 36415; 82784; 82785; 84443; 86364

== ENCOUNTER 2024-05-06 13:27 | Outpatient (AMB) | payer OTHER, SELFPAY ==
--- NOTE | 2024-05-06 13:30 | A.OFFVIS_ITS ---
Vital Signs 05/06/24 13:32 Height 4 ft 11 in Weight 152 lb 1.903 oz BMI 30.7 BP 140/82 H Blood Pressure Location Lt brachial Position Sitting Pulse 94 Intake Visit Reasons: Gastroesophageal reflux disease (GERD) Intake Note: Conrad presents in the office as a new patient for GERD. CC: She states she has acid reflux. States reglan has made everything a lot better but before she was having vomiting and constipation every day. She takes pepcid and it helps a lot. She gets bloating a lot in the epigastgric region. She gets the pains in the abdominal. First week after Reglan she started using the bathroom regular and bloating has gotten a little better. She had a BA swallow and also had a test and speech and hearing where she was told that her vocal chords do not close all the way. [employer] C[employer] Developer Required: No Allergies amoxicillin Allergy (Mild, Verified 09/19/24 07:22) Hives Penicillins Allergy (Mild, Verified 09/19/24 07:22) Hives sulfamethoxazole [From Bactrim] Allergy (Mild, Verified 09/19/24 07:22) Hives trimethoprim [From Bactrim] Allergy (Mild, Verified 09/19/24 07:22) Hives HPI Comments Details: 28 y.o F with PMH of asthma who is here for reflux disease. Pt sees pulmonology for asthma/ reactive airway disease (normal PFTs) who is here on the behest of her pulmologist. Has had vague GI sx for most of her life but since Dec have worsened. Wakes up with N/V at night 4-5 times a week. During the day has reduced appetite with nausea but not as bad. No fevers. No recent travel. Also reports bloating which is prsent most of the time but mostly post prandial. Assoc with constipation. Started on pepcid 40 and reglan 5 BID. Barium swallow 1. Moderate gastroesophageal reflux. 2. Mild retained food within the gastric lumen, which if the patient was truly n.p.o., suggests possible gastroparesis. 3. A few tiny filling defects in the gastric fundus and body may relate to hyperplastic polyps. [facility] Medical History Dysphagia Bronchitis Pleuritic chest pain Vocal cord dysfunction Nasal congestion GERD (gastroesophageal reflux disease) Clubbed foot Allergic reaction Asthma Laryngeal spasm Surgical History History of ankle surgery Family History Other Asthma Social History Patient Tobacco Use Status: Never used Tobacco Use of substances other than those prescribed or required for medical reasons: No Are you DNR?: No Advance Directives: No Advance Directives Information Provided: Yes : No Poor oral hygiene: No Review of Systems Const All systems reviewed & are unremarkable except as noted in HPI and below Physical Exam Vital Signs: Last Vital Signs Pulse 94 05/06/24 13:32 BP 140/82 H 05/06/24 13:32 BMI result Body Mass Index 30.7 No apparent distress Nonicteric Abdomen soft, nondistended Alert and oriented x3, normal gait Assessment & Plan Assessment & Plan (1) Abnormal barium swallow: Code(s): R93.3 - Abnormal findings on diagnostic imaging of other parts of digestive tract Category: Medical (2) GERD (gastroesophageal reflux disease): Code(s): K21.9 - Gastro-esophageal reflux disease without esophagitis Category: Medical Qualifiers: Esophagitis presence: without esophagitis Qualified Code(s): K21.9 - Gastro-esophageal reflux disease without esophagitis (3) Constipation: Code(s): K59.00 - Constipation, unspecified Category: Medical Plan Has 2 main concerns gerd and constipation. Barium swallow reviewed, unclear if true gastroparesis vs transient delayed emptying. Discussed reservations re terminal system operator use of reglan and pt agreeable to stop this for now. Plan: - labs for modifiable causes of constipation such as hypothyroid, celiac - advised hydration and fiber supplementation - can also take miralax once daily or as needed if minimal response with fiber addition - egd to be booked for luminal eval - given significant atopy will also get IgE - stop metoclopramide - decrease omeprazole to 20 once daily - depending on results, will review need for GES Follow up after egd Orders: Orders TSH reflex Free T4 05/06/24 K59.00 - Constipation, unspecified Immunoglobulin E 05/06/24 R93.3 - Abnormal findings on diagnostic imaging of ot her parts of digestive tract Transglutaminase IgA 05/06/24 K59.00 - Constipation, unspecified Immunoglobulin A 05/06/24 K59.00 - Constipation, unspecified Medications: New polyethylene glycol 3350 (Miralax) 17 grams PO DAILY 238 grams 0RF wheat dextrin (Benefiber Healthy Shape) 5 grams PO DAILY 248 grams 0RF omeprazole 20 mg PO DAILY 90 caps 1RF sennosides (senna) 8.6 mg PO DAILY PRN 30 tabs 0RF constipation Discontinued omeprazole Discontinued Reason: Doctor's Order 40 mg PO DAILY 30 days 30 caps 2RF metoclopramide HCl Discontinued Reason: Doctor's Order 5 mg PO QIDACHS 30 days 60 tabs 6RF Coding Level of Care Code New Pt Level 4 (66595) Diagnoses Abnormal barium swallow R93.3 Gastroesophageal reflux disease without esophagitis K21.9 Esophagitis presence: without esophagitis Constipation K59.00
[2024-05-06 13:32] VITALS: BP 140/82; PULSE 94; BMI 30.7
== END 2024-05-06 14:48 | disposition home or self-care (01) ==
PROVIDERS: PCP Student in an Organized Health Care Education/Training Program; Visit Provider Internal Medicine
DX: R93.3 Abnormal findings on diagnostic imaging of other parts of digestive tract (principal); K21.9 Gastro-esophageal reflux disease without esophagitis; K59.00 Constipation, unspecified
CPT/HCPCS: 99499

== ENCOUNTER 2024-07-16 15:24 | Outpatient (AMB) | payer OTHER, SELFPAY ==
[2024-07-16 15:28] VITALS: BP 110/60; PULSE 93; O2SAT 99; BMI 31.4
--- NOTE | 2024-07-16 15:28 | A.OFFVIS_ITS ---
Vital Signs 07/16/24 15:28 Height 4 ft 11 in Weight 155 lb 6.814 oz BMI 31.4 BP 110/60 Blood Pressure Location Rt brachial Position Sitting Pulse 93 Pulse Source Pulse Oximeter Pulse Oximetry (%) 99 Oxygen Delivery Method Room Air Intake Visit Reasons: Asthma Allergies amoxicillin Allergy (Mild, Verified 07/16/24 15:31) Unknown Penicillins Allergy (Mild, Verified 07/16/24 15:31) Unknown sulfamethoxazole [From Bactrim] Allergy (Mild, Verified 07/16/24 15:31) Unknown trimethoprim [From Bactrim] Allergy (Mild, Verified 07/16/24 15:31) Unknown HPI Comments Details: The patient is a 28-year-old woman with a known history asthma. She states that she has been diagnosed with asthma as a child. She never he was hospitalized for however. She has not required any prednisone. And overall she had been doing very well for many years. More recently she did have a child. After she gave to her son about a year ago she started developing worsening shortness of breath. She has also has had worsening cough. She has had a few episodes where she felt she could not get any air in to her lungs. She has use her rescue inhaler with only partial resolution of the symptoms. On further questions she has had formal allergy testing in the past. She is allergic to multiple things. She was offered allergy shots but she deferred at the time. 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 Those were surgically treated at [facility]. In regards of medications she does use her rescue inhaler as needed couple times a week. She was given a prescription for Breo which she started using initially but then stopped after no significant improvement. 05/11/2020 the patient is here for pulmonary follow-up visit. Overall she is doing well. She has not had any significant coughing spells or significant shortness of breath. She has not had to use her rescue inhaler. Although, when she did perform the pulmonary function studies she did have a hard time afterwards with tremulousness and some shortness of breath. Her symptoms did improve and she did not need any medical intervention. It is likely that she had a reaction to the albuterol and also with the forced exhalation. Patient left the office without letting us know that she was uncomfortable with symptoms. In the meantime she did have allergy testing which was all negative which is reassuring. She also had PFTs that appear to be normal. Although, she did have some significant air trapping which is likely suggestive of small airways disease which could be seen with asthma. The patient also had 1 flow volume loop with some plateauing of the inspiratory limb which could be indicative of some dynamic obstruction due to vocal cord dysfunction. 11/02/2023 The patient is here for a sick visit. Having worsening productive cough for 2 weeks. Moderate in severity, although, seems to be getting a little better. +sick contacts. He inhaler does not seem to be helping. She did have bloodwork, but someis still pending. Still having laryngospams, but, overall better. She did comeplete the speech therapy sessions. 03/22/2024 the patient is here for a pulmonary follow-up visit. She has had episodes of nausea vomiting and abdominal discomfort. She has been to the ED for worsening symptoms. She was found to have electrolyte derangements and she was treated accordingly for both dehydration and electrolyte derangements. She did have a barium swallow which we did review with her over the phone and we had refer her to GI. The patient does have a GI appointment coming in April. The a barium swallow did demonstrate that she has gastroparesis also severe reflux in addition to potential hyperplastic polyps in the gastric mucosa. Therefore, she is going to have to have that further evaluated when she is seen by GI. In the meantime she is agreeable to starting a small dose of Reglan. She knows about the potential side effects of tremors. Will start her on a small dose to see if can provide her with some promotility. As far as respiratory status she is doing what well. She is continue her respiratory medications as prescribed. As far as positional therapies. She is going to look into risers with the head of the bed or a wedge pillow for between the mattress. She is going to start taking in liquids with electrolytes such as Pedialyte that she can do throughout the day. Will follow-up in 3-4 months. If the patient has any worsening symptoms she will call for an earlier assessment. 07/16/2024 the patient is here for pulmonary follow-up visit. Overall she is doing well. Her nausea symptoms are better she stopped taking the metoclopramide as a recommendation from GI that is perfectly good. The patient continues with her GI medications and she is waiting endoscopy. She has not heard as of yet. I did reach out to GI to see where she can find out about the procedure itself. The patient otherwise has been okay she did follow-up with Allergy and immunology. 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 She will continue her current respiratory therapy at this time. She will follow-up with Allergy in GI. For now she is going to maintain a reflux diet and try to sleep elevated to minimize her symptoms. If any issues arise she will call for an earlier assessment otherwise will follow-up in 6 months. [facility] Medical History (Updated 05/06/24 @ 13:54 by Kinsey Blum MD) Dysphagia Bronchitis Pleuritic chest pain Vocal cord dysfunction Nasal congestion GERD (gastroesophageal reflux disease) Clubbed foot Allergic reaction Asthma Laryngeal spasm Family History (Updated 04/15/20 @ 22:40 by Hernán Sarmiento MD) Other Asthma Social History Patient Tobacco Use Status: Never used Tobacco Review of Systems Const Reports difficulty sleeping and Denies night sweats ENT Denies change in voice, Reports dysphagia, Denies lip swelling, Denies mouth pain, Reports nasal congestion, Reports nasal discharge and Denies tongue swelling Card Denies chest pain and Denies dyspnea Resp Reports chest congestion, Reports cough, Denies pain on inspiration, Denies pain with cough, Denies dyspnea and Denies wheezing GI Denies abdominal pain, Reports dysphagia, Reports dyspepsia and Reports heartburn Musc Denies no additional complaints Neuro Denies Neuro-related abnormal movements Psych Denies no additional complaints Jayy/Lymph Denies easy bleeding and Denies lymphadenopathy Aller/Immun Denies lip swelling, Denies tongue swelling and Denies wheezing Physical Exam Vital Signs: Last Vital Signs Pulse 93 07/16/24 15:28 BP 110/60 07/16/24 15:28 Pulse Ox 99 07/16/24 15:28 Oxygen Delivery Method Room Air 07/16/24 15:28 BMI result Body Mass Index 31.4 Const General: alert Neck Neck: Yes normal visual inspection, Yes full ROM and Yes no lymphadenopathy Chest Chest palpation & inspection: normal inspection of the chest Resp Effort & Inspection: normal respiratory effort Auscultation: clear to auscultation bilaterally Cardio Rate: regular rate Rhythm: regular rhythm Heart sounds: S1 normal heart sound present and S2 normal heart sound present GI Palpation (GI): Soft to palpation and nontender Auscultation: normal bowel sounds Skin General skin exam: rashes and/or lesions noted Extrem General: Yes no clubbing, cyanosis or edema Left lower extremity: foot (cast) Assessment & Plan Assessment & Plan (1) Asthma: Code(s): J45.909 - Unspecified asthma, uncomplicated Category: Medical Qualifiers: Asthma complication type: uncomplicated Asthma persistence: persistent Asthma severity: moderate Qualified Code(s): J45.40 - Moderate persistent asthma, uncomplicated (2) Nasal congestion: Code(s): R09.81 - Nasal congestion Category: Medical (3) GERD (gastroesophageal reflux disease): Code(s): K21.9 - Gastro-esophageal reflux disease without esophagitis Category: Medical Qualifiers: Esophagitis presence: without esophagitis Qualified Code(s): K21.9 - Gastro-esophageal reflux disease without esophagitis (4) Allergic reaction: Comment: Has had significant allergic episodes although her testing was all negative Code(s): T78.40XA - Allergy, unspecified, initial encounter Category: Medical Qualifiers: Encounter type: subsequent encounter Qualified Code(s): T78.40XD - Allergy, unspecified, subsequent encounter (5) Laryngeal spasm: Code(s): J38.5 - Laryngeal spasm Category: Medical (6) Vocal cord dysfunction: Code(s): J38.3 - Other diseases of vocal cords Category: Medical (7) Dysphagia: Code(s): R13.10 - Dysphagia, unspecified Category: Medical Qualifiers: Dysphagia type: unspecified Qualified Code(s): R13.10 - Dysphagia, unspecified Plan Advair HFA BID stopped reglan 5mg BID trial, monitor for tremors RYAN as needed Continue Singulair Continue Fluticasone nasal spray awaiting GI eval EGD Benzonates as needed for cough F/U 4-6 months Coding Level of Care Code Est Pt Level 4 (77376) Diagnoses Moderate persistent asthma without complication J45.40 Asthma complication type: uncomplicated Asthma persistence: persistent Asthma severity: moderate Nasal congestion R09.81 Gastroesophageal reflux disease without esophagitis K21.9 Esophagitis presence: without esophagitis Allergic reaction, subsequent encounter T78.40XD Encounter type: subsequent encounter Laryngeal spasm J38.5 Vocal cord dysfunction J38.3 Dysphagia, unspecified type R13.10 Dysphagia type: unspecified Time Spent (min) 16
--- OUTSIDE RECORDS SUMMARY | 2024-07-16 16:17 | XMS_ITS | Clinical Summary ---
Author Organization [facility] ity Address [address] [place] [address] Care Team Providers Care Coagulator Name Role Phone Unavailable Primary Care Provider Unavailabl e Social History Tobacco Use Types Packs/Day Years Used Date Smoking Tobacco: Never Assessed Comments Unknown Sex and Gender Information Value Date Recorded Sex Assigned at Not on file Legal Sex Female 8:01 PM EDT Gender Identity Not on file Sexual Orientation Not on file Plan of Treatment Health Maintenance Due Date Last Done Comments DTaP,Tdap,and Td Vaccines (1 - Tdap) 08/08/2014 Hepatitis B Vaccines (1 of 3 - 19+ 3-dose series) 08/08/2014 Cervical Cancer Screening: P ap Smear 08/08/2016 COVID-19 Vaccine (2023-2 5 season) 2024 Influenza Vaccine (#1) 2024 Depression Screening 03/29/2024 HIV Screening 03/29/2024 Hepatitis C Screening 03/29/2024 Social Influencers of Health Screening 03/29/2024 HIB Vaccines Aged Out No longer eligi ble based on patient's age to complete this topic HPV Vaccines Aged Out No longer eligi ble based on patient's age to complete this topic Hepatitis A Vaccines Aged Out No long er eligible based on patient's age to complete this topic IPV Vaccines Aged Out No longer eligi ble based on patient's age to complete this topic MMR Vaccines Aged Out No longer eligi ble based on patient's age to complete this topic Meningococcal ACWY Vaccine Aged Out N o longer eligible based on patient's age to complete this topic Meningococcal B Vacine Aged Out No lo nger eligible based on patient's age to complete this topic Pneumococcal Vaccine: Pediat rics (0 to 5 Years) and At-Risk Patients (6 to 64 Years) Aged Out No longer eligible b ased on patient's age to complete this topic RSV Immunization Patients Un rosa 20 months Aged Out No longer eligible b ased on patient's age to complete this topic Varicella Vaccines Aged Out No longer eligible based on patient's age to complete this topic
--- OUTSIDE RECORDS SUMMARY | 2024-07-16 16:18 | XMS_ITS | Encounter Summary ---
Author Organization [facility] Address [address] [phone] Phone Care Team Providers Care Preschool Paraprofessional Name Role Phone Ann De MD Primary Care Provider Unava ilable Encounter Details Date Type Department Care Team (Late st Contact Info) Description 03/27/2013 Documentation EM Family Medicine [place] [address] Family Medicine, [place] [address] Social History Tobacco Use Types Packs/Day Years Used Date Smoking Tobacco: Never Assessed Comments Unknown Sex and Gender Information Value Date Recorded Sex Assigned at Not on file Legal Sex Female 5:24 PM EDT Gender Identity Not on file Sexual Orientation Not on file documented as of this encounter Plan of Treatment Not on file documented as of this encounter Visit Diagnoses Not on filedocumented in this encounter Care Teams Preschool Paraprofessional Relationship Specialty Start Date End Date Ann De MD PCP - General 01/06/17 documented as of this encounter
--- OUTSIDE RECORDS SUMMARY | 2024-07-16 16:18 | XMS_ITS | Encounter Summary ---
Author Organization [facility] Address [address] [place] [address] Phone Care Team Providers Care Warehouse Receiving Supervisor Name Role Phone Ann De MD Primary Care Provider Unava ilable Encounter Details Date Type Department Care Team (Late st Contact Info) Description 01/12/2017 Conversion Encounter [facility] - [address] [address] Social History Tobacco Use Types Packs/Day Years Used Date Smoking Tobacco: Never Comments:Never smoker Comments Unknown Sex and Gender Information Value Date Recorded Sex Assigned at Not on file Legal Sex Female 5:24 PM EDT Gender Identity Not on file Sexual Orientation Not on file documented as of this encounter Plan of Treatment Not on file documented as of this encounter Visit Diagnoses Not on filedocumented in this encounter Care Teams Warehouse Receiving Supervisor Relationship Specialty Start Date End Date Ann De MD PCP - General 01/06/17 documented as of this encounter
--- OUTSIDE RECORDS SUMMARY | 2024-07-16 16:18 | XMS_ITS | Encounter Summary ---
Author Organization [facility] Address [address] [phone] Phone Care Team Providers Care Superintendent Storage Area Name Role Phone Ann De MD Primary Care Provider Unava ilable Encounter Details Date Type Department Care Team (Late st Contact Info) Description 10/18/2016 Documentation EM Family Medicine [facility] [place], [place] [phone] Family Medicine, Physician [address] [place] [id number] Social History Tobacco Use Types Packs/Day Years [...] on filedocumented in this encounter Care Teams Superintendent Storage Area Relationship Specialty Start Date End Date Ann De MD PCP - General 01/06/17 documented as of this encounter
--- OUTSIDE RECORDS SUMMARY | 2024-07-16 16:18 | XMS_ITS | Encounter Summary ---
Author Organization [facility] Address [address] [phone] Phone Care Team Providers Care Net Making Supervisor Name Role Phone Ann De MD Primary Care Provider Unava ilable Encounter Details Date Type Department Care Team (Late st Contact Info) Description 12/06/2016 Documentation EM Family Medicine [facility] [place], [place] [phone] Family Medicine, Physician [address] [place] [id number] Social History Tobacco Use Types Packs/Day Years [...] on filedocumented in this encounter Care Teams Net Making Supervisor Relationship Specialty Start Date End Date Ann De MD PCP - General 01/06/17 documented as of this encounter
--- OUTSIDE RECORDS SUMMARY | 2024-07-16 16:18 | XMS_ITS | Encounter Summary ---
Author Organization [facility] Address [address] [phone] Phone Care Team Providers Care Window Shade Ring Sewer Name Role Phone Ann De MD Primary Care Provider Unava ilable Encounter Details Date Type Department Care Team (Late st Contact Info) Description 06/28/2012 Documentation EM Family Medicine [place] [address] Family Medicine, [place] [address] Social History Tobacco Use Types Packs/Day Years [...] on filedocumented in this encounter Care Teams Window Shade Ring Sewer Relationship Specialty Start Date End Date Ann De MD PCP - General 01/06/17 documented as of this encounter
--- OUTSIDE RECORDS SUMMARY | 2024-07-16 16:18 | XMS_ITS | Clinical Summary ---
Author Organization [facility] Address [address] [place] [address] Phone Care Team Providers Care Agriculture Professor Name Role Phone Ann De MD Primary Care Provider Unava ilable Immunizations Immunization Administration Dates Next Due DTP 02/21/1996,1995,1995 DTaP 5 08/26/2000,03/24/1997 H1N1 08/06/2009 HPV, Quadrivalent 08/17/2007,04/18/2007,02/17/20 07 Hep A, ped/adol 04/17/2014,12/31/2010 Hep B, ped/adol 05/06/1996,1995,1995 Hib (PRP-T) 03/24/1997, 6,1995,10/08 Influenza Split 03/20/2012, 1,04/02/2010,04/03,04/09/2001,05/10/2000,03/23/1999 ,04/16/1998,03/16/1998 Influenza, injectable, quadrivalent 03/10/2016 Influenza, injectable, quadr ivalent, preservative free 03/17/2015,02/13/2014 Influenza, injectable, trivalent 009,02/18/2008,02/16/2007,04/25,03/04/2005,03/31/2004,04/11/2003 ,04/03/2002,04/09/2001,05/10/2000,02/27,04/16/1998,03/16/1998 MMR 05/10/2000,10/04/1996 Meningococcal Conj (Menactra) MCV4P 08/31/2016,1 OPV 08/26/2000, 6,1995,10/08 Tdap 02/18/2008 Varicella 02/28/2008,08/28/1997 Family History Relation Name Status Comments Brother 1 Alive Brother: Asthma , Alive and well, Alive and well, Alive and well Brother 2 Alive Brother: Asthma , Alive and well, Alive and well, Alive and well Brother 3 Alive Brother: Asthma , Alive and well, Alive and well, Alive and well Father Alive Father: high ch olesterol Mother Alive Mother: Asthma and hypertension Sister Alive Sister: Alive a nd well Social History Tobacco Use Types Packs/Day Years Used Date Smoking Tobacco: Never Comments:Never smoker Comments Unknown Sex and Gender Information Value Date Recorded Sex Assigned at Not on file Legal Sex Female 5:24 PM EDT Gender Identity Not on file Sexual Orientation Not on file Last Filed Vital Signs Vital Sign Reading Time Taken Comments Blood Pressure 110/76 08/31/2016 12:00 AM EDT Pulse 84 08/31/2016 12:00 AM EDT Temperature 36.7 ??C (98.1 ??F) 08/08/2016 12:00 AM E DT Respiratory Rate - - Oxygen Saturation 100% 08/06/2009 12:00 AM EST Inhaled Oxygen Concentration - - Weight 59.9 kg (132 lb) 08/31/2016 12:00 AM EDT Height 147.3 cm (4' 10 ) 08/31/2016 12:00 AM EDT Body Mass Index 27.59 08/31/2016 12:00 AM EDT Plan of Treatment Health Maintenance Due Date Last Done Comments DTaP,Tdap,and Td Vaccines (7 - Td or Tdap) 02/17/2018 02/18/2008, 08/26/2000, 03/24/1997, Additional history exists Influenza Vaccines (#1) 2023 03/10/20 16, 03/17/2015, 02/13/2014, Additional history exists COVID-19 Vaccine ( season) 2024 Hepatitis B Vaccines Completed 05/06/1996, 1995, 1995 HIB Vaccines Completed 03/24/1997, 01/28, 1995, Additional history exists MMR Vaccines Completed 05/10/2000, 10/04/1996 IPV Vaccines Completed 08/26/2000, 01/28, 1995, Additional history exists HPV Vaccines Completed 08/17/2007, 03/30, 02/16/2007 Varicella Vaccines Completed 02/28/2008, 08/28/1997 Hepatitis A Vaccines Completed 04/17/2014, 01/01/20 11 Meningococcal Vaccine Aged Out 08/31/2016, 008 No longer eligible based on patient's age to complete this topic Men B Vaccine Aged Out No longer elig ible based on patient's age to complete this topic Pneumococcal Vaccine Aged Out No long er eligible based on patient's age to complete this topic Procedures * Due to [facility] law, this organization might not be sharing sensitive test results. Procedure Name Priority Date/Time Associated Diagnosis Comments CHLAMYDIA AND GONORRHEA, AMPLIFIED Routine 03/21/2012 3:59 PM EDT from Last 3 Months or Most Recently Relevant to Health Maintenance Results * Due to [facility] law, this organization might not be sharing sensitive test results. * Chlamydia and Gonorrhoea, Amplified (03/21/2012 3:59 PM EDT) Pathologist [facility] URINE CHLAMYDIA AMP PROBE NEGATIVE [facility] Comment: NO CHLAMYDIA TRACHOMATIS RNA DETECTED IN THIS PATIENT'S SAMPLE. ? (REFERENCE RANGE/NORMAL VALUE: NOT DETECTED) URINE GC AMP PROBE NEGATIVE [facility] Comment: NO NEISSERIA GONORRHOEAE RNA DETECTED IN THIS PATIENT'S SAMPLE. ? (REFERENCE RANGE/NORMAL VALUE: NOT DETECTED) ? NOTE: THIS TEST USES EMERGENCY MEDICAL SERVICE COORDINATOR MEDIATED AMPLIFICATION METHOD TO DETECT rRNA FROM C.TRACHOMATIS AND N.GONORRHOEAE. A NEGATIVE RESULT DOES NOT PRECLUDE INFECTION WITH C.TRACHOMATIS OR N.GONORRHOEAE BECAUSE RESULTS ARE DEPENDENT ON ADEQUATE SPECIMEN COLLECTION, ABSENCE OF INHIBITORS, AND SUFFICIENT rRNA TO BE DETECTED. THE APTIMA COMBO2 ASSAY IS NOT INTENDED FOR THE EVALUATION OF SUSPECTED SEXUAL ABUSE OR FOR OTHER MEDICO LEGAL INDICATIONS. IS TRUE FOR ALL NON CULTURE METHODS, A POSITIVE SPECIMEN OBTAINED FROM A PATIENT AFTER THERAPEUTIC TREATMENT CANNOT BE INTERPRETED INDICATING THE PRESENCE OF VIABLE C.TRACHOMATIS OR N.GONORRHOEAE. THERAPEUTIC FAILURE OR SUCCESS CANNOT BE DETERMINED WITH THE APTIMA COMBO2 ASSAY SINCE NUCLEIC ACID MAY PERSIST FOLLOWING APPROPRIATE ANTIMICROBIAL THERAPY. A NEGATIVE URINE RESULT FOR A PATIENT WHO IS CLINICALLY SUSPECTED OF HAVING A CHLAMYDIAL OR GONOCOCCAL INFECTION DOES NOT RULE OUT THE PRESENCE OF C.TRACHOMATIS OR N.GONORRHOEAE IN THE UROGENITAL TRACT. TESTING OF AN ENDOCERVICAL(FEMALE) OR URETHRAL(MALE) SPECIMEN IS RECOMMENDED IF THERE IS HIGH CLINICAL SUSPICION OF INFECTION. PRESERVCYT LIQUID PAP AND URINE SAMPLING ARE NOT DESIGNED TO REPLACE CERVICAL EXAMS AND ENDOCERVICAL SAMPLES FOR DIAGNOSIS OF FEMALE UROGENITAL INFECTIONS. PATIENTS MAY HAVE CERVICITIS, URETHRITIS, URINARY TRACT INFECTIONS, OR VAGINAL INFECTIONS DUE TO OTHER CAUSES OR CONCURRENT INFECTIONS WITH OTHER AGENTS. 03/21/2012 3:59 PM EDT Narrative [facility] - 03/21/2012 3:59 PM EDT URINE CHLAMYDIA GC AMP PROBE us Ann eD MD LAB MICROBIOLOGY - GENERAL O RDERABLES Final Result [facility] [address] [place] [address], [place] from Last 3 Months or Most Recently Relevant to Health Maintenance Care Teams Agriculture Professor Relationship Specialty Start Date End Date Ann De MD PCP - General 01/06/17
--- OUTSIDE RECORDS SUMMARY | 2024-07-16 16:18 | XMS_ITS | Encounter Summary ---
Author Organization [facility] Address [address] [phone] Phone Care Team Providers Care Resident Care Technician Name Role Phone Ann De MD Primary Care Provider Unava ilable Encounter Details Date Type Department Care Team (Late st Contact Info) Description 04/21/2014 Documentation EM Family Medicine [place] [address] Family Medicine, Physician [address] [place] [phone] Social History Tobacco Use Types Packs/Day Years [...] on filedocumented in this encounter Care Teams Resident Care Technician Relationship Specialty Start Date End Date Ann De MD PCP - General 01/06/17 documented as of this encounter
--- OUTSIDE RECORDS SUMMARY | 2024-07-16 16:18 | XMS_ITS | Encounter Summary ---
Author Organization [facility] Address [address] [phone] Phone Care Team Providers Care Automatic Maintainer Name Role Phone Ann De MD Primary Care Provider Unava ilable Encounter Details Date Type Department Care Team (Late st Contact Info) Description 09/28/2016 Documentation EM Family [facility] [place], [place] [phone] Family Medicine, Physician [address] [place] [phone] Social History Tobacco Use Types Packs/Day Years [...] on filedocumented in this encounter Care Teams Automatic Maintainer Relationship Specialty Start Date End Date Ann De MD PCP - General 01/06/17 documented as of this encounter
== END 2024-07-16 15:56 | disposition home or self-care (01) ==
PROVIDERS: PCP Student in an Organized Health Care Education/Training Program; Visit Provider Hospitalist
DX: J45.40 Moderate persistent asthma, uncomplicated (principal); R09.81 Nasal congestion; K21.9 Gastro-esophageal reflux disease without esophagitis; T78.40XD Allergy, unspecified, subsequent encounter; J38.5 Laryngeal spasm; J38.3 Other diseases of vocal cords; R13.10 Dysphagia, unspecified
CPT/HCPCS: 99214

== ENCOUNTER → 2024-07-16 15:24 | Outpatient (BNVA) | payer OTHER, SELFPAY | PROVIDERS: PCP Student in an Organized Health Care Education/Training Program; Visit Provider Hospitalist | DX: J45.40 Moderate persistent asthma, uncomplicated (principal); J38.5 Laryngeal spasm; J38.3 Other diseases of vocal cords; R09.81 Nasal congestion; K21.9 Gastro-esophageal reflux disease without esophagitis; R13.10 Dysphagia, unspecified; T78.40XD Allergy, unspecified, subsequent encounter; X58.XXXD Exposure to other specified factors, subsequent encounter; Z79.899 Other long term (current) drug therapy | CPT/HCPCS: 99212 ==

== ENCOUNTER 2024-09-19 06:53 | Day surgery (SDC) | payer OTHER, SELFPAY ==
--- OUTSIDE RECORDS SUMMARY | 2024-08-26 14:44 | XMS_ITS | Clinical Summary ---
Author Organization [facility] ity Address [address] [place] [address] Care Team Providers Care Puffer Tender Name Role Phone Unavailable Primary Care Provider [...]
--- OUTSIDE RECORDS SUMMARY | 2024-08-26 14:45 | XMS_ITS | Encounter Summary ---
Author Organization [facility] Address [address] [phone] Phone Care Team Providers Care Retail Worker Name Role Phone Ann De MD Primary Care Provider Unava ilable Encounter Details Date Type Department Care Team (Late st Contact Info) Description 09/28/2016 Documentation EM Family Medicine [facility] [place], [place] [phone] Family Medicine, Physician [address] [place] [phone] Social History Tobacco Use Types Packs/Day Years [...] on filedocumented in this encounter Care Teams Retail Worker Relationship Specialty Start Date End Date Ann De MD PCP - General 01/06/17 documented as of this encounter
--- OUTSIDE RECORDS SUMMARY | 2024-08-26 14:45 | XMS_ITS | Encounter Summary ---
Author Organization [facility] Address [address] [phone] Phone Care Team Providers Care Magnetic Doctor Name Role Phone Ann De MD Primary Care Provider Unava ilable Encounter Details Date Type Department Care Team (Late st Contact Info) Description 12/06/2016 Documentation EM Family Medicine [facility] [place], [place] [phone] Family Medicine, Physician [address] [place] [phone] Social History Tobacco Use Types Packs/Day Years [...] on filedocumented in this encounter Care Teams Magnetic Doctor Relationship Specialty Start Date End Date Ann De MD PCP - General 01/06/17 documented as of this encounter
--- OUTSIDE RECORDS SUMMARY | 2024-08-26 14:45 | XMS_ITS | Encounter Summary ---
Author Organization [facility] Address [address] [phone] Phone Care Team Providers Care Residential Subcontractor Name Role Phone Ann De MD Primary Care Provider Unava ilable Encounter Details Date Type Department Care Team (Late st Contact Info) Description 03/27/2013 Documentation EM Family Medicine [facility] [place] [address] Family Medicine, Physician [facility] [place] [address] Social History Tobacco Use Types Packs/Day Years [...] on filedocumented in this encounter Care Teams Residential Subcontractor Relationship Specialty Start Date End Date Ann De MD PCP - General 01/06/17 documented as of this encounter
--- OUTSIDE RECORDS SUMMARY | 2024-08-26 14:45 | XMS_ITS | Encounter Summary ---
Author Organization [facility] Address [address] [phone] Phone Care Team Providers Care Manager Cardiovascular Name Role Phone Ann De MD Primary Care Provider Unava ilable Encounter Details Date Type Department Care Team (Late st Contact Info) Description 04/21/2014 Documentation EM Family [facility] [place] [address] Family Medicine, Physician [address] [place] [address] Social History Tobacco Use Types Packs/Day Years [...] on filedocumented in this encounter Care Teams Manager Cardiovascular Relationship Specialty Start Date End Date Ann De MD PCP - General 01/06/17 documented as of this encounter
--- OUTSIDE RECORDS SUMMARY | 2024-08-26 14:45 | XMS_ITS | Encounter Summary ---
Author Organization [facility] Address [address] [phone] Phone Care Team Providers Care Undercoat Sprayer Name Role Phone Ann De MD Primary Care Provider Unava ilable Encounter Details Date Type Department Care Team (Late st Contact Info) Description 10/18/2016 Documentation EM Family Medicine [facility] [place], [place] [phone] Family Medicine, Physician [address] [place] [phone] Social History Tobacco Use Types Packs/Day Years [...] on filedocumented in this encounter Care Teams Undercoat Sprayer Relationship Specialty Start Date End Date Ann De MD PCP - General 01/06/17 documented as of this encounter
--- OUTSIDE RECORDS SUMMARY | 2024-08-26 14:45 | XMS_ITS | Encounter Summary ---
Author Organization [facility] Address [address] [place] [address] Phone Care Team Providers Care Teacher Aide Clerical Name Role Phone Ann De MD Primary Care Provider Unava ilable Encounter Details Date Type Department Care Team (Late st Contact Info) Description 01/12/2017 Conversion Encounter [facility] - [address] [phone] Social History Tobacco Use Types Packs/Day Years [...] on filedocumented in this encounter Care Teams Teacher Aide Clerical Relationship Specialty Start Date End Date Ann De MD PCP - General 01/06/17 documented as of this encounter
--- OUTSIDE RECORDS SUMMARY | 2024-08-26 14:45 | XMS_ITS | Encounter Summary ---
Author Organization [facility] Address [address] [phone] Phone Care Team Providers Care Cognos Report Developer Name Role Phone Ann De MD Primary Care Provider Unava ilable Encounter Details Date Type Department Care Team (Late st Contact Info) Description 06/28/2012 Documentation EM Family Medicine [facility] [place] [address] Family Medicine, Physician [facility] [place] [address] Social History Tobacco Use Types Packs/Day Years [...] on filedocumented in this encounter Care Teams Cognos Report Developer Relationship Specialty Start Date End Date Ann De MD PCP - General 01/06/17 documented as of this encounter
--- OUTSIDE RECORDS SUMMARY | 2024-08-26 14:45 | XMS_ITS | Clinical Summary ---
Author Organization [facility] Address [address] [place] [address] Phone Care Team Providers Care Global Compensation Analyst Name Role Phone Ann De MD Primary [...] this topic Procedures * Due to [facility] law, this organization might not be sharing sensitive test results. Procedure Name Priority Date/Time Associated Diagnosis Comments CHLAMYDIA AND GONORRHEA, AMPLIFIED Routine 03/21/2012 3:59 PM EDT from Last 3 Months or Most Recently Relevant to Health Maintenance Results * Due to [facility] law, this organization might not be sharing sensitive test results. * Chlamydia and Gonorrhoea, Amplified (03/21/2012 3:59 PM EDT) Pathologist [facility] URINE CHLAMYDIA AMP PROBE NEGATIVE [facility] Comment: NO CHLAMYDIA TRACHOMATIS RNA DETECTED IN THIS PATIENT'S SAMPLE. ? (REFERENCE RANGE/NORMAL VALUE: NOT DETECTED) URINE GC AMP PROBE NEGATIVE [facility] Comment: NO NEISSERIA GONORRHOEAE RNA DETECTED IN THIS PATIENT'S SAMPLE. ? (REFERENCE RANGE/NORMAL VALUE: NOT DETECTED) ? NOTE: THIS TEST USES LINOLEUM LAYER APPRENTICE MEDIATED AMPLIFICATION METHOD TO DETECT rRNA FROM [...] OTHER AGENTS. 03/21/2012 3:59 PM EDT Narrative [facility] - 03/21/2012 3:59 PM EDT URINE CHLAMYDIA GC AMP PROBE us Ann De MD LAB MICROBIOLOGY - GENERAL O RDERABLES Final Result [facility] [address] [place] [address], [place] from Last 3 Months or Most Recently Relevant to Health Maintenance Care Teams Global Compensation Analyst Relationship Specialty Start Date End Date Ann De MD PCP - General 01/06/17
[2024-09-17 08:57] VITALS: BMI 30.7
--- NOTE | 2024-09-18 08:52 | HO.ANESPROP2 ---
Documented by User: Michelle Martinez NP 09/18/24 08:55 HPI - Anesthesia Eval Consult details Narrative: 29yo F for Upper Endoscopy PMFSH Active Problems Active Problems: All Active Problems Constipation (Acute) Dysphagia (Acute) Abnormal barium swallow (Acute) Bronchitis (Acute) Pleuritic chest pain (Acute) Vocal cord dysfunction (Acute) Nasal congestion (Acute) GERD (gastroesophageal reflux disease) (Acute) Allergic reaction (Acute) Asthma (Acute) Laryngeal spasm (Acute) Past Medical History Medical History Dysphagia Bronchitis Pleuritic chest pain Vocal cord dysfunction Nasal congestion GERD (gastroesophageal reflux disease) Clubbed foot Allergic reaction Asthma Laryngeal spasm Family History Family History Other Asthma Surgical History Surgical History History of ankle surgery Social History Social History Patient Tobacco Use Status: Never used Tobacco Meds Allergies Allergy/AdvReac Type Severity Reaction Status Date / Time amoxicillin Allergy Mild Hives Verified 09/19/24 07:22 Penicillins Allergy Mild Hives Verified 09/19/24 07:22 sulfamethoxazole Allergy Mild Hives Verified 09/19/24 07:22 [From Bactrim] trimethoprim [From Bactrim] Allergy Mild Hives Verified 09/19/24 07:22 Home Medications ?Medication ?Instructions ?Recorded ?Confirmed ?Last Taken ?Type ibuprofen 600 mg tablet 600 mg PO Q6-8H PRN pain 09/23/22 09/19/24 09/17/24 History meloxicam 15 mg tablet 15 mg PO DAILY 09/23/22 09/19/24 09/12/24 History norethindrone (contraceptive) 0.35 0.35 mg PO DAILY 09/23/22 Unknown History mg tablet ferrous fumarate 325 mg (106 mg 325 mg PO DAILY 05/06/24 Unknown History iron) tablet (Ferretts) ketotifen fumarate 0.025 % (0.035 drp ophthalmic (eye) 05/06/24 Unknown History %) eye drops Exam Height,Weight and Vital Signs: Height 4 ft 11 in Weight 68.946 kg Assessment and Plan Assessment Anesthesia Assessment: Chart Reviewed Documented by User: Trinidad Echeverria MD 09/19/24 10:04 HPI - Anesthesia Eval Consult details Narrative: 29yo F for Upper Endoscopy. H/o spontaneous laryngeal spasms. No identified inciting factors. Will anesthetize airway with lidocaine updraft PMFSH Active Problems Active Problems: All Active Problems Constipation (Acute) Dysphagia (Acute) Abnormal barium swallow (Acute) Bronchitis (Acute) Pleuritic chest pain (Acute) Vocal cord dysfunction (Acute) Nasal congestion (Acute) GERD (gastroesophageal reflux disease) (Acute) Allergic reaction (Acute) Asthma (Acute)- uses inhalers daily. Not used today Laryngeal spasm (Acute) Past Medical History Medical History Dysphagia Bronchitis Pleuritic chest pain Vocal cord dysfunction Nasal congestion GERD (gastroesophageal reflux disease) Clubbed foot Allergic reaction Asthma Laryngeal spasm Family History Family History Other Asthma Family history of problems with anesthesia: No Surgical History Surgical History History of ankle surgery History of Problems with Anesthesia: No Social History Social History Patient Tobacco Use Status: Never used Tobacco Meds Allergies Allergy/AdvReac Type Severity Reaction Status Date / Time amoxicillin Allergy Mild Hives Verified 09/19/24 07:22 Penicillins Allergy Mild Hives Verified 09/19/24 07:22 sulfamethoxazole Allergy Mild Hives Verified 09/19/24 07:22 [From Bactrim] trimethoprim [From Bactrim] Allergy Mild Hives Verified 09/19/24 07:22 Home Medications ?Medication ?Instructions ?Recorded ?Confirmed ?Last Taken ?Type ibuprofen 600 mg tablet 600 mg PO Q6-8H PRN pain 09/23/22 09/19/24 09/17/24 History meloxicam 15 mg tablet 15 mg PO DAILY 09/23/22 09/19/24 09/12/24 History norethindrone (contraceptive) 0.35 0.35 mg PO DAILY 09/23/22 Unknown History mg tablet ferrous fumarate 325 mg (106 mg 325 mg PO DAILY 05/06/24 Unknown History iron) tablet (Ferretts) ketotifen fumarate 0.025 % (0.035 drp ophthalmic (eye) 05/06/24 Unknown History %) eye drops Exam Height,Weight and Vital Signs: Height 4 ft 11 in Weight 68.946 kg Vital Signs Temp Pulse Resp BP Pulse Ox O2 Del Method 97.8 F 72 16 111/75 100 Room Air 09/19/24 08:06 09/19/24 08:06 09/19/24 08:06 09/19/24 08:06 09/19/24 08:06 09/19/24 08:06 Pertinent Lab Results Pertinent Lab Results: Lab Results 09/19/24 Range/Units 07:16 Urine Test NEGATIVE (NEGATIVE) Airway Mallampati Class: II TM Dist: >3cm Neck ROM: Full Loose/Missing/Broken Teeth: No (Denies broken, loose, missing teeth) Heart: RRR Lungs: CTAB. No wheezing Assessment and Plan Assessment Anesthesia Assessment: Anesthesia Plan Discussed and Chart Reviewed Final Anesthetic Review Family History of Problems with Anesthesia: No History of Problems with Anesthesia: No NPO: Yes ASA Class: II Final Preanesthetic Review: No Changes in Pt Med Stat, Meds/Allgs Chart Reviewed, Consent Obtained/Reviewed and Anes Risks/Benef Reviewed Patient Risk: Intermediate Procedure Risk: Low Assessment/Block/Sedation in SS: Assess/Block/Sedation-SS Anesthetic Plan Anesthetic Plan: TIVA Disposition: Standard PACU
[2024-09-19 07:17] VITALS: BMI 29.0
[2024-09-19 07:26] LABS: UPreg QC Valid YES
[2024-09-19 07:28] LABS: Urine Pregnancy NEGATIVE (NEGATIVE)
--- NOTE | 2024-09-19 07:53 | MHC.SHP ---
Pre-Procedural Eval Section A - 24 Hr Update-Section A only Date of Service: 09/19/24 Section B - Complete if H&P > 30 days Chief Complaint: GERD, regurgitaiton, abnormal barium swallow Details of Present Illness: Pt here for EGD for abnormal barium swallow and regurgitation Present Medications: see Short Stay Collaborative assessment Allergies: Allergies Allergy/AdvReac Type Severity Reaction Status Date / Time amoxicillin Allergy Mild Hives Verified 09/19/24 07:22 Penicillins Allergy Mild Hives Verified 09/19/24 07:22 sulfamethoxazole Allergy Mild Hives Verified 09/19/24 07:22 [From Bactrim] trimethoprim [From Bactrim] Allergy Mild Hives Verified 09/19/24 07:22 Review of Systems Review of Systems Comment: Ten point ROS negative Exam Exam Comment: Gen appear: No acute distress HEENT: no icterus Chest: No overt resp distress Abd: soft, nontender, nondistended Psych: Stable affect, answering questions appropriately Neuro: A/Ox3 noted to move all extremities spontaneously Ext: no peripheral edema Plan Diagnosis/Plan: Unchanged I have reviewed the history and physical and performed a pertinent physical examination on my patient. No changes have occurred unless specified. Time Spent With Patient Time: Total time managing care of this patient today ____ minutes.
[2024-09-19 08:06] VITALS: BP 111/75; PULSE 72; RESP 16; TEMP 36.6; O2SAT 100
[2024-09-19] MEDS: Lactated Ringers 1,000 ML 100 ML IVCONT (08:07)
[2024-09-19] MEDS: Albuterol Sulfate (0.083%) 2.5 MG/3 ML VIAL.NEB INHALE (08:12)
[2024-09-19] MEDS: Lidocaine HCl 4 % MPF 5 ML AMPUL 3 ML INHALE (09:12)
--- NOTE | 2024-09-19 09:38 | P.OP_ITS ---
Operative Note Operative Note Date of Service: 09/19/24 Narrative: Procedure: Esophagogastroduodenoscopy Endoscopist: Kinsey Blum MD Indication: Dysphagia, GERD Anesthesia Provider: Dr Trinidad Echeverria Anesthesia Type: MAC ?? EGD Procedure:?? The procedure, indications, preparation and potential complications were revie wed with the patient, who indicated understanding and gave written informed consent to proceed. A physical exam was performed. The endoscope was introduced through the mouth, and advanced to the second part of duodenum. The mucosa was carefully examined on slow withdrawal of the endoscope. The patient tolerated the procedure well. There were no immediate complications.? ? EGD Findings:? * Esophagus:? Normal mucosa noted in the entire esophagus. The Z line was at 39 cm. Middle and lower esophagus forceps biopsies were obtained to rule out eosinophilic esophagitis. * Stomach:? Semi-solid food was noted in the fundus of the stomach which could not be suctioned out. Retroflexion was performed in the cardia. * Duodenum:? Normal mucosa was noted in the whole of the examined duodenum. []Biopsies were taken from duodenal bulb and second portion of the duodenum to rule out celiac sprue. ? EGD Impressions:? * Normal esophagus (biopsy) * Food in stomach * Normal duodenum (biopsy) ?? Recommendations:?? * Empiric dilation was not attempted today due to stomach contents * Outpatient GES has been ordered to r/o gastroparesis * Follow biopsy results. Our office will call or send a letter with results within 7-10 days. * Continue PPI therapy. Above has been reviewed with the patient.
[2024-09-19 09:41] VITALS: BP 112/62; PULSE 118; RESP 20; TEMP 36.6; O2SAT 99
[2024-09-19 09:56] VITALS: BP 111/72; PULSE 108; RESP 18; O2SAT 100
[2024-09-19 10:01] VITALS: TEMP 36.5
== END 2024-09-19 10:28 | disposition home or self-care (01) ==
PROVIDERS: Nurse Practitioner; Visit Provider Internal Medicine
PROC: 0DJ08ZZ Inspection of Upper Intestinal Tract, Via Natural or Artificial Opening Endoscopic (ICD-10-PCS; CPT 43235; principal; 2024-09-19 08:10)
DX: K21.9 Gastro-esophageal reflux disease without esophagitis (principal); R13.10 Dysphagia, unspecified; T18.2XXA Foreign body in stomach, initial encounter; W44.F3XA Food entering into or through a natural orifice, initial encounter; R93.3 Abnormal findings on diagnostic imaging of other parts of digestive tract; J38.5 Laryngeal spasm; J38.3 Other diseases of vocal cords; J45.909 Unspecified asthma, uncomplicated; K59.00 Constipation, unspecified; Z79.899 Other long term (current) drug therapy
CPT/HCPCS: 43239; 81025; 88305; 88313; J1100; J1596; J2003; J2250; J2704; J3010

== ENCOUNTER → 2024-09-19 06:53 | Outpatient (BNV) | payer OTHER, SELFPAY | PROVIDERS: Visit Provider Internal Medicine | DX: R13.10 Dysphagia, unspecified (principal); K21.9 Gastro-esophageal reflux disease without esophagitis | CPT/HCPCS: 43239 ==

== ENCOUNTER → 2024-10-02 08:10 | Outpatient (REF) | payer OTHER, SELFPAY ==
--- NOTE | ~2024-10-02 | NM_ITS ---
EXAMINATION: MN RADIONUCLIDE SOLID FOOD GASTRIC EMPTYING 4-HOUR STUDY CLINICAL INFORMATION: R93.3 - Abnormal findings on diagnostic imaging of other parts of digestive tract... COMPARISON: None TECHNIQUE: A standard meal consisting of 4 oz of Egg Beaters brand tagged with 1.0 mCi Tc-99m Sulfur Colloid, 6 oz water and 2 slices of toast with jelly was administered orally to the patient. Images were obtained using a dual head gamma camera in the anterior and posterior projections over of the stomach immediately post ingestion and at hourly intervals up to 4 hours post ingestion. The anterior and posterior counts at each time interval were averaged using the geometric mean and expressed as percentage of the immediate post ingestion counts. FINDINGS: There is visualization of activity in the stomach immediately post ingestion. As the study progresses, there is clearance of activity from the stomach and visualization of progressively increasing small bowel activity. By the end of the study, there is almost no retention noted in the stomach. Retention in the stomach at each time interval was: 1 hour 100% (normal 37%-90%) 2 hours 59% (normal 30%-60%) 3 hours 34% 4 hours 15% (normal 0%-10%) MN/MN gastric emptying study IMPRESSION: Mildly delayed gastric emptying. For solid meal, rapid gastric emptying is less than 30% at 60 minutes. Delayed gastric emptying criteria is more than 60% remaining at 120 minutes or more than 10% at 240 minutes. The 4-hour value is the best discriminator of a normal or abnormal result). Gastric emptying study grading per JNMT Consensus Recommendations in 2008 (https://tech.snmjournals.org/content/36/1/44) Grade 1 (mild retention): 11-20% at 4h Grade 2 (moderate retention): 21-35% at 4h Grade 3 (severe retention): 36-50% at 4h Grade 4 (very severe retention): >50% retention at 4h Electronically signed by: Gunnar King MD 10/02/2024 01:19 PM EDT
--- OUTSIDE RECORDS SUMMARY | 2024-10-02 08:19 | XMS_ITS | Clinical Summary ---
Author Organization [facility] Address [address] [place] [address] Phone Care Team Providers Care Mold Engraver Name Role Phone Ann De MD Primary [...] complete this topic Procedures * Due to [facility] [place] law, this organization might not be sharing sensitive test results. Procedure Name Priority Date/Time Associated Diagnosis Comments CHLAMYDIA AND GONORRHEA, AMPLIFIED Routine 03/21/2012 3:59 PM EDT from Last 3 Months or Most Recently Relevant to Health Maintenance Results * Due to [facility], [place] law, this organization might not be sharing sensitive test results. * Chlamydia and Gonorrhoea, Amplified (03/21/2012 3:59 PM EDT) Pathologist [facility] URINE CHLAMYDIA AMP PROBE NEGATIVE [facility] Comment: NO CHLAMYDIA TRACHOMATIS RNA DETECTED IN THIS PATIENT'S SAMPLE. ? (REFERENCE RANGE/NORMAL VALUE: NOT DETECTED) URINE GC AMP PROBE NEGATIVE [facility] Comment: NO NEISSERIA GONORRHOEAE RNA DETECTED IN THIS PATIENT'S SAMPLE. ? (REFERENCE RANGE/NORMAL VALUE: NOT DETECTED) ? NOTE: THIS TEST USES APPAREL MERCHANDISER MEDIATED AMPLIFICATION METHOD TO DETECT rRNA FROM [...] OTHER AGENTS. 03/21/2012 3:59 PM EDT Narrative [facility] - 03/21/2012 3:59 PM EDT URINE CHLAMYDIA GC AMP PROBE us Ann De MD LAB MICROBIOLOGY - GENERAL O RDERABLES Final Result [facility] [address] [place] [address], [place] from Last 3 Months or Most Recently Relevant to Health Maintenance Care Teams Mold Engraver Relationship Specialty Start Date End Date Ann De MD PCP - General 01/06/17
--- OUTSIDE RECORDS SUMMARY | 2024-10-02 08:19 | XMS_ITS | Encounter Summary ---
Author Organization [facility] Address [address] [phone] Phone Care Team Providers Care Bilingual Secretary Name Role Phone Ann De MD Primary Care Provider Unava ilable Encounter Details Date Type Department Care Team (Late st Contact Info) Description 09/28/2016 Documentation EM Family Medicine [facility] [place], [place] [id number] Family Medicine, Physician [address] [place] [phone] Social History Tobacco Use Types Packs/Day Years [...] on filedocumented in this encounter Care Teams Bilingual Secretary Relationship Specialty Start Date End Date Ann De MD PCP - General 01/06/17 documented as of this encounter
--- OUTSIDE RECORDS SUMMARY | 2024-10-02 08:19 | XMS_ITS | Encounter Summary ---
Author Organization [facility] Address [address] [phone] Phone Care Team Providers Care Community Service Aide Name Role Phone Ann De MD Primary Care Provider Unava ilable Encounter Details Date Type Department Care Team (Late st Contact Info) Description 12/06/2016 Documentation EM Family Medicine Counts [facility] [place], [place] [phone] Family Medicine, Physician [address] [place] [address] Social History Tobacco Use Types Packs/Day Years [...] on filedocumented in this encounter Care Teams Community Service Aide Relationship Specialty Start Date End Date Ann De MD PCP - General 01/06/17 documented as of this encounter
--- OUTSIDE RECORDS SUMMARY | 2024-10-02 08:19 | XMS_ITS | Clinical Summary ---
Author Organization [facility] ity Address [address] [place] [address] Care Team Providers Care Dba Developer Name Role Phone Unavailable Primary Care Provider [...] 08/08/2016 COVID-19 Vaccine (2023-2 5 season) 2024 Depression Screening 03/29/2024 HIV Screening 03/29/2024 Hepatitis C Screening 03/29/2024 Social Influencers of Health Screening 03/29/2024 Influenza Vaccine (Season Ended) 2025 HIB Vaccines Aged Out No longer eligi [...] age to complete this topic Meningococcal B Vaccine Aged Out No l onger eligible based on patient's age to complete [...]
--- OUTSIDE RECORDS SUMMARY | 2024-10-02 08:19 | XMS_ITS | Encounter Summary ---
Author Organization [facility] Address [address] [place] [address] Phone Care Team Providers Care Preschool Director Name Role Phone Ann De MD Primary Care Provider Unava ilable Encounter Details Date Type Department Care Team (Late st Contact Info) Description 10/18/2016 Documentation EM Family Medicine [facility] [place], [place] [phone] Family Medicine, Physician [address] [place] [phone] Social History Tobacco Use Types Packs/Day Years [...] filedocumented in this encounter Care Teams Preschool Director Relationship Specialty Start Date End Date Ann De MD PCP - General 01/06/17 documented as of this encounter
--- OUTSIDE RECORDS SUMMARY | 2024-10-02 08:19 | XMS_ITS | Encounter Summary ---
Author Organization [facility] Address [address] [phone] Phone Care Team Providers Care Printing Manager Name Role Phone Ann De MD Primary Care Provider Unava ilable Encounter Details Date Type Department Care Team (Late st Contact Info) Description 04/21/2014 Documentation EM Family Medicine [facility] [place] [address] Family Medicine, Physician [address] [place] [phone] Social History Tobacco Use Types Packs/Day Years [...] on filedocumented in this encounter Care Teams Printing Manager Relationship Specialty Start Date End Date Ann De MD PCP - General 01/06/17 documented as of this encounter
--- OUTSIDE RECORDS SUMMARY | 2024-10-02 08:19 | XMS_ITS | Encounter Summary ---
Author Organization [facility] Address [address] [phone] Phone Care Team Providers Care Facing End Trimmer Name Role Phone Ann De MD Primary Care Provider Unava ilable Encounter Details Date Type Department Care Team (Late st Contact Info) Description 06/28/2012 Documentation EM Family Medicine [facility] [place] [address] Family Medicine, Physician [facility] [place] [address] Social History Tobacco Use Types Packs/Day Years [...] on filedocumented in this encounter Care Teams Facing End Trimmer Relationship Specialty Start Date End Date Ann De MD PCP - General 01/06/17 documented as of this encounter
--- OUTSIDE RECORDS SUMMARY | 2024-10-02 08:19 | XMS_ITS | Encounter Summary ---
Author Organization [facility] Address [address] [place] [address] Phone Care Team Providers Care Deputy Register Of Deeds Name Role Phone Ann De MD Primary Care Provider Unava ilable Encounter Details Date Type Department Care Team (Late st Contact Info) Description 01/12/2017 Conversion Encounter [facility] - [address] [address] Social History Tobacco Use Types Packs/Day Years [...] on filedocumented in this encounter Care Teams Deputy Register Of Deeds Relationship Specialty Start Date End Date Ann De MD PCP - General 01/06/17 documented as of this encounter
--- OUTSIDE RECORDS SUMMARY | 2024-10-02 08:19 | XMS_ITS | Encounter Summary ---
Author Organization [facility] Address [address] [phone] Phone Care Team Providers Care Manager Personal Name Role Phone Ann De MD Primary Care Provider Unava ilable Encounter Details Date Type Department Care Team (Late st Contact Info) Description 03/27/2013 Documentation EM Family Medicine [facility] [place] [address] Family Medicine, Physician [facility] [place] [address] Social History Tobacco Use Types Packs/Day Years [...] filedocumented in this encounter Care Teams Manager Personal Relationship Specialty Start Date End Date Ann De MD PCP - General 01/06/17 documented as of this encounter
== END ==
LOC: HO.NUCMED 08:10
PROVIDERS: Visit Provider Internal Medicine
DX: R93.3 Abnormal findings on diagnostic imaging of other parts of digestive tract (principal)
CPT/HCPCS: 78264; A9541

== ENCOUNTER → 2024-10-02 08:11 | Outpatient (BNV) | payer OTHER, SELFPAY | PROVIDERS: Visit Provider Radiology Diagnostic Radiology | DX: R93.3 Abnormal findings on diagnostic imaging of other parts of digestive tract (principal) | CPT/HCPCS: 78264 ==

== ENCOUNTER 2024-10-16 09:23 | Outpatient (AMB) | payer OTHER, SELFPAY ==
[2024-10-16 09:24] VITALS: BP 110/64; PULSE 81; O2SAT 100; BMI 29.4
--- NOTE | 2024-10-16 09:24 | A.OFFVIS_ITS ---
Vital Signs 10/16/24 09:24 Height 4 ft 11 in Weight 145 lb 8.081 oz BMI 29.4 BP 110/64 Blood Pressure Location Lt brachial Position Sitting Pulse 81 Pulse Source Pulse Oximeter Pulse Oximetry (%) 100 Oxygen Delivery Method Room Air Intake Visit Reasons: s/p egd Intake Note: Pt presents to the office today for a s/p egd. Allergies amoxicillin Allergy (Mild, Verified 10/16/24 09:24) Hives Penicillins Allergy (Mild, Verified 10/16/24 09:24) Hives sulfamethoxazole [From Bactrim] Allergy (Mild, Verified 10/16/24 09:24) Hives trimethoprim [From Bactrim] Allergy (Mild, Verified 10/16/24 09:24) Hives HPI Comments Details: 28 y.o F with PMH of asthma who is here for reflux disease. Pt sees pulmonology for asthma/ reactive airway disease (normal PFTs) who is here on the behest of her pulmologist. Has had vague GI sx for most of her life but since Dec have worsened. Wakes up with N/V at night 4-5 times a week. During the day has reduced appetite with nausea but not as bad. No fevers. No recent travel. Also reports bloating which is prsent most of the time but mostly post prandial. Assoc with constipation. Started on pepcid 40 and reglan 5 BID. Barium swallow 1. Moderate gastroesophageal reflux. 2. Mild retained food within the gastric lumen, which if the patient was truly n.p.o., suggests possible gastroparesis. 3. A few tiny filling defects in the gastric fundus and body may relate to hyperplastic polyps. 09/19/24: EGD Impressions:? * Normal esophagus (biopsy) * Food in stomach * Normal duodenum (biopsy) Path: A. Duodenum, biopsy: Duodenal mucosa within normal limits. B. Esophagus, lower, biopsy: Squamous epithelium within normal limits; no inflammation seen. C. Esophagus, middle, biopsy: Squamous epithelium within normal limits; no inflammation seen. 10/02/24: FINDINGS: There is visualization of activity in the stomach immediately post ingestion. As the study progresses, there is clearance of activity from the stomach and visualization of progressively increasing small bowel activity. By the end of the study, there is almost no retention noted in the stomach. Retention in the stomach at each time interval was: 1 hour 100% (normal 37%-90%) 2 hours 59% (normal 30%-60%) 3 hours 34% 4 hours 15% (normal 0%-10%) NM/NM gastric emptying study IMPRESSION: Mildly delayed gastric emptying. 10/16/24: Here for follow up. Results of EGD and GES reviewed. No EoE. Dilation was not done in favor of expediting procedure as there was food in stomach. Has mild delay in gastric emptying. Pt herself reports some improvement in symptoms on PPI therapy. She is also concerned about gastric polyps noted on barium swallow. These were not sampled during EGD due to food in stomach. [facility] Medical History Dysphagia Bronchitis Pleuritic chest pain Vocal cord dysfunction Nasal congestion GERD (gastroesophageal reflux disease) Clubbed foot Allergic reaction Asthma Laryngeal spasm Surgical History History of ankle surgery Family History Other Asthma Social History Patient Tobacco Use Status: Never used Tobacco Review of Systems Const All systems reviewed & are unremarkable except as noted in HPI and below Physical Exam Vital Signs: Last Vital Signs Pulse 81 10/16/24 09:24 BP 110/64 10/16/24 09:24 Pulse Ox 100 10/16/24 09:24 Oxygen Delivery Method Room Air 10/16/24 09:24 BMI result Body Mass Index 29.4 No apparent distress Nonicteric Abdomen soft, nondistended Alert and oriented x3, normal gait Assessment & Plan Assessment & Plan (1) Delayed gastric emptying: Code(s): K30 - Functional dyspepsia Category: Medical (2) Constipation: Code(s): K59.00 - Constipation, unspecified Category: Medical (3) Abnormal barium swallow: Code(s): R93.3 - Abnormal findings on diagnostic imaging of other parts of digestive tract Category: Medical (4) Dysphagia: Code(s): R13.10 - Dysphagia, unspecified Category: Medical Qualifiers: Dysphagia type: unspecified Qualified Code(s): R13.10 - Dysphagia, unspecified (5) GERD (gastroesophageal reflux disease): Code(s): K21.9 - Gastro-esophageal reflux disease without esophagitis Category: Medical Qualifiers: Esophagitis presence: without esophagitis Qualified Code(s): K21.9 - Gastro-esophageal reflux disease without esophagitis Plan Pt was reassured that no EoE noted on biopsies. She does have mild delay in gastric emptying. Will r/o DM. In the meantime, given very mild delay, will start with dietary modification such as small particle diet and increasing liquid portion of diet. She tells me she is being worked up for [facility] - this is known to be associated with gastrointestinal dysmotility and could be contributing to her sx. Will favor H2 donna as an anti-secretory therapy in this context. Plan: - Small particle diet - Increase liquid component of food such as smoothies, shakes etc - Low fiber and fat diet - Cont famotidine. OK to DC ppi. - Upscale Security Officer referral - pt will check which local questioned documents examiner takes her insurance and will let us know so we can send the referral there - If limited response to the above measures, will add pharmacotherapy. Motegrity preferred as that will also help with constipation - [facility] managament as per her commissioned sales associate - will get records - Repeat EGD to be booked in 2-3 months for evaluation of gastric polyps and empiric dilation for persistent globus sx Follow up after egd Orders: Orders Hemoglobin A1c Today K30 - Functional dyspepsia Medications: New famotidine 20 mg PO BID 90 days 180 tabs 1RF Discontinued omeprazole Discontinued Reason: Doctor's Order 20 mg PO DAILY 90 caps 1RF Coding Level of Care Code Est Pt Level 4 (08979) Diagnoses Delayed gastric emptying K30 Constipation K59.00 Abnormal barium swallow R93.3 Dysphagia, unspecified type R13.10 Dysphagia type: unspecified Gastroesophageal reflux disease without esophagitis K21.9 Esophagitis presence: without esophagitis
--- OUTSIDE RECORDS SUMMARY | 2024-10-16 10:42 | XMS_ITS | Clinical Summary ---
Author Organization [facility] [address] ity Address [address] [place] [address] Care Team Providers Care Analysis Specialist Name Role Phone Unavailable Primary Care Provider [...]
--- OUTSIDE RECORDS SUMMARY | 2024-10-16 10:42 | XMS_ITS | Encounter Summary ---
Author Organization [facility] Address [address] [phone] Phone Care Team Providers Care Wrecking Crane Engine Operator Name Role Phone Ann De MD Primary Care Provider Unava ilable Encounter Details Date Type Department Care Team (Late st Contact Info) Description 09/28/2016 Documentation EM Family Medicine [facility] [place], [place] [phone] Family Medicine, Physician [address] [place] [address] Social History Tobacco Use Types Packs/Day Years [...] on filedocumented in this encounter Care Teams Wrecking Crane Engine Operator Relationship Specialty Start Date End Date Ann De MD PCP - General 01/06/17 documented as of this encounter
--- OUTSIDE RECORDS SUMMARY | 2024-10-16 10:42 | XMS_ITS | Encounter Summary ---
Author Organization [facility] Address [address] [place] [address] Phone Care Team Providers Care Pullboat Engineer Name Role Phone Ann De MD Primary Care Provider Unava ilable Encounter Details Date Type Department Care Team (Late st Contact Info) Description 10/18/2016 Documentation EM Family Medicine [facility] [place], [place] [phone] Family Medicine, Physician [address] [place] [address] Social History Tobacco Use Types Packs/Day Years [...] on filedocumented in this encounter Care Teams Pullboat Engineer Relationship Specialty Start Date End Date Ann De MD PCP - General 01/06/17 documented as of this encounter
--- OUTSIDE RECORDS SUMMARY | 2024-10-16 10:43 | XMS_ITS | Encounter Summary ---
Author Organization [facility] Address [address] [place] [address] Phone Care Team Providers Care Fiberglasser Name Role Phone Ann De MD Primary Care Provider Unava ilable Encounter Details Date Type Department Care Team (Late st Contact Info) Description 01/12/2017 Conversion Encounter [facility] - [address] [address] Social History Tobacco Use Types Packs/Day Years [...] on filedocumented in this encounter Care Teams Fiberglasser Relationship Specialty Start Date End Date Ann De MD PCP - General 01/06/17 documented as of this encounter
--- OUTSIDE RECORDS SUMMARY | 2024-10-16 10:43 | XMS_ITS | Encounter Summary ---
Author Organization [facility] Address [address] [phone] Phone Care Team Providers Care Wood Bucker Name Role Phone Ann De MD Primary Care Provider Unava ilable Encounter Details Date Type Department Care Team (Late st Contact Info) Description 06/28/2012 Documentation EM Family Medicine [facility] [place] [address] Family Medicine, Physician [place] [address] Social History Tobacco Use Types Packs/Day Years [...] on filedocumented in this encounter Care Teams Wood Bucker Relationship Specialty Start Date End Date Ann De MD PCP - General 01/06/17 documented as of this encounter
--- OUTSIDE RECORDS SUMMARY | 2024-10-16 10:43 | XMS_ITS | Encounter Summary ---
Author Organization [facility] Address [address] [phone] Phone Care Team Providers Care Estimator And Drafter Supervisor Name Role Phone Ann De MD Primary Care Provider Unava ilable Encounter Details Date Type Department Care Team (Late st Contact Info) Description 03/27/2013 Documentation EM Family Medicine [facility] [address] Family Medicine, Physician [facility] [place] [address] Social History Tobacco Use Types Packs/Day Years [...] on filedocumented in this encounter Care Teams Estimator And Drafter Supervisor Relationship Specialty Start Date End Date Ann De MD PCP - General 01/06/17 documented as of this encounter
--- OUTSIDE RECORDS SUMMARY | 2024-10-16 10:43 | XMS_ITS | Clinical Summary ---
Author Organization [facility] Address [address] [place] [address] Phone Care Team Providers Care Crimper Operator Name Role Phone Ann De MD [...] this topic Procedures * Due to [facility] law, this organization might not be sharing sensitive test results. Procedure Name Priority Date/Time Associated Diagnosis Comments CHLAMYDIA AND GONORRHEA, AMPLIFIED Routine 03/21/2012 3:59 PM EDT from Last 3 Months or Most Recently Relevant to Health Maintenance Results * Due to [facility] law, this organization might not be sharing sensitive test results. * Chlamydia and Gonorrhoea, Amplified (03/21/2012 3:59 PM EDT) Pathologist [facility] URINE CHLAMYDIA AMP PROBE NEGATIVE [facility] Comment: NO CHLAMYDIA TRACHOMATIS RNA DETECTED IN THIS PATIENT'S SAMPLE. ? (REFERENCE RANGE/NORMAL VALUE: NOT DETECTED) URINE GC AMP PROBE NEGATIVE [facility] Comment: NO NEISSERIA GONORRHOEAE RNA DETECTED IN THIS PATIENT'S SAMPLE. ? (REFERENCE RANGE/NORMAL VALUE: NOT DETECTED) ? NOTE: THIS TEST USES FAST FOOD TEAM MEMBER MEDIATED AMPLIFICATION METHOD TO DETECT rRNA FROM [...] OTHER AGENTS. 03/21/2012 3:59 PM EDT Narrative [facility] - 03/21/2012 3:59 PM EDT URINE CHLAMYDIA GC AMP PROBE us Ann De MD LAB MICROBIOLOGY - GENERAL O RDERABLES Final Result [facility] [address] [place] [address], [place] from Last 3 Months or Most Recently Relevant to Health Maintenance Care Teams Crimper Operator Relationship Specialty Start Date End Date Ann De MD PCP - General 01/06/17
--- OUTSIDE RECORDS SUMMARY | 2024-10-16 10:43 | XMS_ITS | Encounter Summary ---
Author Organization [facility] Address [address] [phone] Phone Care Team Providers Care Secondary History Teacher Name Role Phone Ann De MD Primary Care Provider Unava ilable Encounter Details Date Type Department Care Team (Late st Contact Info) Description 04/21/2014 Documentation EM Family Medicine [facility] [place] [address] Family Medicine, Physician [address] [place] [address] Social History Tobacco Use Types Packs/Day Years [...] on filedocumented in this encounter Care Teams Secondary History Teacher Relationship Specialty Start Date End Date Ann De MD PCP - General 01/06/17 documented as of this encounter
--- OUTSIDE RECORDS SUMMARY | 2024-10-16 10:43 | XMS_ITS | Encounter Summary ---
Author Organization [facility] Address [address] [phone] Phone Care Team Providers Care Brake Lining Finisher Name Role Phone Ann De MD Primary Care Provider Unava ilable Encounter Details Date Type Department Care Team (Late st Contact Info) Description 12/06/2016 Documentation EM Family Medicine [facility] [place], [place] [phone] Family Medicine, Physician [address] [place] [address] Social History Tobacco Use Types Packs/Day Years [...] on filedocumented in this encounter Care Teams Brake Lining Finisher Relationship Specialty Start Date End Date Ann De MD PCP - General 01/06/17 documented as of this encounter
== END 2024-10-16 10:16 | disposition home or self-care (01) ==
LOC: HO.HGI 09:23
PROVIDERS: PCP Student in an Organized Health Care Education/Training Program; Visit Provider Internal Medicine
DX: K30 Functional dyspepsia (principal); K59.00 Constipation, unspecified; R93.3 Abnormal findings on diagnostic imaging of other parts of digestive tract; R13.10 Dysphagia, unspecified; K21.9 Gastro-esophageal reflux disease without esophagitis
CPT/HCPCS: 99214

== ENCOUNTER → 2024-10-16 09:23 | Outpatient (BNVA) | payer OTHER, SELFPAY | PROVIDERS: PCP Student in an Organized Health Care Education/Training Program; Visit Provider Internal Medicine | DX: K30 Functional dyspepsia (principal); K59.00 Constipation, unspecified; K21.9 Gastro-esophageal reflux disease without esophagitis; R93.3 Abnormal findings on diagnostic imaging of other parts of digestive tract; R13.10 Dysphagia, unspecified | CPT/HCPCS: 99212 ==

== ENCOUNTER 2025-01-13 15:19 | Outpatient (AMB) | payer OTHER, SELFPAY ==
[2025-01-13 15:21] VITALS: BP 100/64; PULSE 82; O2SAT 98; BMI 27.2
--- NOTE | 2025-01-13 15:21 | A.OFFVIS_ITS ---
Vital Signs 01/13/25 15:21 Height 4 ft 11 in Weight 134 lb 7.712 oz BMI 27.2 BP 100/64 Blood Pressure Location Rt brachial Position Sitting Pulse 82 Pulse Source Pulse Oximeter Pulse Oximetry (%) 98 Oxygen Delivery Method Room Air Intake Visit Reasons: Asthma Neonatal Nurse Required: No Accompanied by: Self / Same As Patient Allergies amoxicillin Allergy (Mild, Verified 01/13/25 15:32) Hives Penicillins Allergy (Mild, Verified 01/13/25 15:32) Hives sulfamethoxazole (From Bactrim) Allergy (Mild, Verified 01/13/25 15:32) Hives trimethoprim (From Bactrim) Allergy (Mild, Verified 01/13/25 15:32) Hives HPI Comments Details: The patient is a 29-year-old woman with a known history asthma. She states that she has been diagnosed with asthma as a child. She never he was hospitalized for however. She has not required any prednisone. And overall she had been doing very well for many years. More recently she did have a child. After she gave to her son about a year ago she started developing worsening shortness of breath. She has also has had worsening cough. She has had a few episodes where she felt she could not get any air in to her lungs. She has use her rescue inhaler with only partial resolution of the symptoms. On further questions she has had formal allergy testing in the past. She is allergic to multiple things. She was offered allergy shots but she deferred at the time. 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 Those were surgically treated at [facility]. In regards of medications she does use her rescue inhaler as needed couple times a week. She was given a prescription for Breo which she started using initially but then stopped after no significant improvement. 05/11/2020 the patient is here for pulmonary follow-up visit. Overall she is doing well. She has not had any significant coughing spells or significant shortness of breath. She has not had to use her rescue inhaler. Although, when she did perform the pulmonary function studies she did have a hard time afterwards with tremulousness and some shortness of breath. Her symptoms did improve and she did not need any medical intervention. It is likely that she had a reaction to the albuterol and also with the forced exhalation. Patient left the office without letting us know that she was uncomfortable with symptoms. In the meantime she did have allergy testing which was all negative which is reassuring. She also had PFTs that appear to be normal. Although, she did have some significant air trapping which is likely suggestive of small airways disease which could be seen with asthma. The patient also had 1 flow volume loop with some plateauing of the inspiratory limb which could be indicative of some dynamic obstruction due to vocal cord dysfunction. 11/02/2023 The patient is here for a sick visit. Having worsening productive cough for 2 weeks. Moderate in severity, although, seems to be getting a little better. +sick contacts. He inhaler does not seem to be helping. She did have bloodwork, but someis still pending. Still having laryngospams, but, overall better. She did comeplete the speech therapy sessions. 03/22/2024 the patient is here for a pulmonary follow-up visit. She has had episodes of nausea vomiting and abdominal discomfort. She has been to the ED for worsening symptoms. She was found to have electrolyte derangements and she was treated accordingly for both dehydration and electrolyte derangements. She did have a barium swallow which we did review with her over the phone and we had refer her to GI. The patient does have a GI appointment coming in April. The a barium swallow did demonstrate that she has gastroparesis also severe reflux in addition to potential hyperplastic polyps in the gastric mucosa. Therefore, she is going to have to have that further evaluated when she is seen by GI. In the meantime she is agreeable to starting a small dose of Reglan. She knows about the potential side effects of tremors. Will start her on a small dose to see if can provide her with some promotility. As far as respiratory status she is doing what well. She is continue her respiratory medications as prescribed. As far as positional therapies. She is going to look into risers with the head of the bed or a wedge pillow for between the mattress. She is going to start taking in liquids with electrolytes such as Pedialyte that she can do throughout the day. Will follow-up in 3-4 months. If the patient has any worsening symptoms she will call for an earlier assessment. 07/16/2024 the patient is here for pulmonary follow-up visit. Overall she is doing well. Her nausea symptoms are better she stopped taking the metoclopramide as a recommendation from GI that is perfectly good. The patient continues with her GI medications and she is waiting endoscopy. She has not heard as of yet. I did reach out to GI to see where she can find out about the procedure itself. The patient otherwise has been okay she did follow-up with Allergy and immunology. 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 She will continue her current respiratory therapy at this time. She will follow-up with Allergy in GI. For now she is going to maintain a reflux diet and try to sleep elevated to minimize her symptoms. If any issues arise she will call for an earlier assessment otherwise will follow-up in 6 months. 01/13/2025 the patient is here for a pulmonary follow-up visit. Overall she is doing okay. Breathing seems to be stable on the current respiratory regimen. Although sometimes she feels some chest tightness and heaviness. She is still dealing with the GI issues. She does have evidence of gastroparesis. She understands that this could potentially worsening respiratory capacity. Her dietitian has helped her decrease some although symptoms. Although we could try her on azithromycin for promotility effects. She can talk to GI doctor afterwards to see if this is something to consider. Primarily does not help with her promotility issues and hopefully decreasing her respiratory manifest ations. [facility] Medical History Dysphagia Bronchitis Pleuritic chest pain Vocal cord dysfunction Nasal congestion GERD (gastroesophageal reflux disease) Clubbed foot Allergic reaction Asthma Laryngeal spasm Surgical History History of ankle surgery Family History Other Asthma Social History Patient Tobacco Use Status: Never used Tobacco Review of Systems Const Reports difficulty sleeping and Denies night sweats ENT Denies change in voice, Reports dysphagia, Denies lip swelling, Denies mouth pain, Reports nasal congestion, Reports nasal discharge and Denies tongue swelling Card Denies chest pain and Denies dyspnea Resp Reports chest congestion, Reports cough, Denies pain on inspiration, Denies pain with cough, Denies dyspnea and Denies wheezing GI Denies abdominal pain, Reports dysphagia, Reports dyspepsia and Reports heartburn Musc Denies no additional complaints Neuro Denies Neuro-related abnormal movements Psych Denies no additional complaints Jayy/Lymph Denies easy bleeding and Denies lymphadenopathy Aller/Immun Denies lip swelling, Denies tongue swelling and Denies wheezing Physical Exam Vital Signs: Last Vital Signs Pulse 82 01/13/25 15:21 BP 100/64 01/13/25 15:21 Pulse Ox 98 01/13/25 15:21 Oxygen Delivery Method Room Air 01/13/25 15:21 BMI result Body Mass Index 27.2 Const General: alert Neck Neck: Yes normal visual inspection, Yes full ROM and Yes no lymphadenopathy Chest Chest palpation & inspection: normal inspection of the chest Resp Effort & Inspection: normal respiratory effort Auscultation: clear to auscultation bilaterally Cardio Rate: regular rate Rhythm: regular rhythm Heart sounds: S1 normal heart sound present and S2 normal heart sound present GI Palpation (GI): Soft to palpation and nontender Auscultation: normal bowel sounds Skin General skin exam: rashes and/or lesions noted Extrem General: Yes no clubbing, cyanosis or edema Left lower extremity: foot (cast) Assessment & Plan Assessment & Plan (1) Asthma: Code(s): J45.909 - Unspecified asthma, uncomplicated Category: Medical Qualifiers: Asthma complication type: uncomplicated Asthma persistence: persistent Asthma severity: moderate Qualified Code(s): J45.40 - Moderate persistent asthma, uncomplicated (2) Nasal congestion: Code(s): R09.81 - Nasal congestion Category: Medical (3) GERD (gastroesophageal reflux disease): Code(s): K21.9 - Gastro-esophageal reflux disease without esophagitis Category: Medical Qualifiers: Esophagitis presence: without esophagitis Qualified Code(s): K21.9 - Gastro-esophageal reflux disease without esophagitis (4) Allergic reaction: Comment: Has had significant allergic episodes although her testing was all negative Code(s): T78.40XA - Allergy, unspecified, initial encounter Category: Medical Qualifiers: Encounter type: subsequent encounter Qualified Code(s): T78.40XD - Allergy, unspecified, subsequent encounter (5) Laryngeal spasm: Code(s): J38.5 - Laryngeal spasm Category: Medical (6) Vocal cord dysfunction: Code(s): J38.3 - Other diseases of vocal cords Category: Medical (7) Dysphagia: Code(s): R13.10 - Dysphagia, unspecified Category: Medical Qualifiers: Dysphagia type: unspecified Qualified Code(s): R13.10 - Dysphagia, unspecified Plan Advair HFA BID RYAN as needed Continue Singulair Continue Fluticasone nasal spray Benzonates as needed for cough start Azithromycin MWF F/U 4-6 months Medications: New azithromycin Take 1 tablet on Monday/Monday/Monday 250 mg PO 3XW 12 tabs 1RF 28 days K21.9 - Gastro-esophageal reflux disease without esophagitis Coding Level of Care Code Est Pt Level 4 (16790) Diagnoses Moderate persistent asthma without complication J45.40 Asthma complication type: uncomplicated Asthma persistence: persistent Asthma severity: moderate Nasal congestion R09.81 Gastroesophageal reflux disease without esophagitis K21.9 Esophagitis presence: without esophagitis Allergic reaction, subsequent encounter T78.40XD Encounter type: subsequent encounter Laryngeal spasm J38.5 Vocal cord dysfunction J38.3 Dysphagia, unspecified type R13.10 Dysphagia type: unspecified Time Spent (min) 16
--- OUTSIDE RECORDS SUMMARY | 2025-01-13 15:53 | XMS_ITS | Encounter Summary ---
Author Organization [facility] Address [address] [phone] Phone Care Team Providers Care Information Delivery Analyst Name Role Phone Ann De MD Primary Care Provider Unava ilable Encounter Details Date Type Department Care Team (Late st Contact Info) Description 09/28/2016 Documentation EM Family Medicine [facility] [place], [place] [id number] Family Medicine, Physician [address] [place] [id number] Social History Tobacco Use Types Packs/Day Years [...] on filedocumented in this encounter Care Teams Information Delivery Analyst Relationship Specialty Start Date End Date Ann De MD PCP - General 01/06/17 documented as of this encounter
--- OUTSIDE RECORDS SUMMARY | 2025-01-13 15:53 | XMS_ITS | Clinical Summary ---
Author Organization [facility] ity Address [address] [place] [address] Care Team Providers Care Intellectual Property Manager Name Role Phone Unavailable Primary Care Provider [...] 08/08/2016 COVID-19 Vaccine (2023-2 5 season) 2024 HIV Screening 03/29/2024 Hepatitis C Screening 03/29/2024 Social Influencers of Health Screening 03/29/2024 Depression Screening 05/29/2024 Influenza Vaccine (#1) 2025 HIB Vaccines Aged Out No longer [...] 5 Years) and At-Risk Patients (6 to 49 Years) Aged Out No longer eligible b ased on patient's age to complete this topic RSV Immunization Patients Un rosa 20 months Aged Out No longer eligible b ased on patient's age to complete this topic Varicella Vaccines Aged Out No longer eligible based on patient's age to complete this topic
== END 2025-01-13 16:05 | disposition home or self-care (01) ==
LOC: HO.HPS 15:20
PROVIDERS: PCP Student in an Organized Health Care Education/Training Program; Visit Provider Hospitalist
DX: J45.40 Moderate persistent asthma, uncomplicated (principal); R09.81 Nasal congestion; K21.9 Gastro-esophageal reflux disease without esophagitis; T78.40XD Allergy, unspecified, subsequent encounter; J38.5 Laryngeal spasm; J38.3 Other diseases of vocal cords; R13.10 Dysphagia, unspecified
CPT/HCPCS: 99214

== ENCOUNTER → 2025-01-13 15:19 | Outpatient (BNVA) | payer OTHER, SELFPAY | PROVIDERS: PCP Student in an Organized Health Care Education/Training Program; Visit Provider Hospitalist | DX: J45.40 Moderate persistent asthma, uncomplicated (principal); R09.81 Nasal congestion; K21.9 Gastro-esophageal reflux disease without esophagitis; T78.40XD Allergy, unspecified, subsequent encounter; J38.5 Laryngeal spasm; J38.3 Other diseases of vocal cords; R13.10 Dysphagia, unspecified | CPT/HCPCS: 99212 ==

== ENCOUNTER 2025-05-12 15:19 | Outpatient (AMB) | payer OTHER, SELFPAY ==
--- OUTSIDE RECORDS SUMMARY | 2025-05-07 23:59 | XMS_ITS | Continuity of Care Document ---
Author Organization [facility] Address [address] [place] [address]- Care Team Providers Care Bow String Maker Name Role Phone Brad JUARES, Kesha Primary Care Physician Encounter [facility] Date(s): 04/07/25 - 05/07/[address] [address] Encounter Type: Triage Allergies, Adverse Reactions, Alerts Substance Criticality Severity Reaction Reaction Severity Status amoxicillin hives, red rash and swollen as a child Active Bactrim full body redne ss, swollen and hives Active Immunizations Given and Recorded Vaccine Date Status Refusal Reason influenza virus vaccine, inactivated 02/28/19 Give n influenza virus vaccine, inactivated 03/29/18 Give n tetanus/diphtheria/pertussis, acel(Tdap) 01/10/19 Given tetanus/diphtheria/pertussis, acel(Tdap) 12/07/17 Given Medications acetaminophen 500 mg oral capsule 2 capsule = 1,000 mg, By Mouth, 4 times a day, PRN Pain , Moderate, # 100 capsule, 0 Refills, Maintenance, 06/15/23 9:44:00 PM EST, Capsule, [id number], Partial fill upon patient request if the prescription is for a schedule II opioid drug., 149.86, cm, 07/18/22 15:51:00 EST, Height, 70, kg,06/15/23 19:26:00 EST, Dry Weight Start Date: 06/15/23 Status: Ordered Medication Dispense Status: Completed Quantity: 100.0 Unit: capsule Total Allowed Fills: 1 Fills Dispensed: 0 Aerochamber See Instructions, # 2 each, Maintenance, To be used with albuterol and QVAR inhalers, 03/13/20 10:20:00 AM EDT, Compound, 150, cm, 07/04/19 16:56:00 EST, Height, 76.3, kg, 04/05/19 10:26:00 EST, Dry Weight Start Date: 03/13/20 Status: Ordered Medication Dispense Status: Completed Quantity: 2.0 Unit: each Total Allowed Fills: 1 Fills Dispensed: 0 azelastine nasal 0.15% spray 1 sprays = 205.5 mcg, Nares, Both, 2 times a day, PRN for allergy symptoms, # 1 each, 1 Refills, Maintenance, 08/20/24 9:26:00 AM EDT, [place], [id number], Partial fill upon patient request if the prescription is for a schedule II opioid drug., 1 sprays Nares, Both 2 times a day,PRN:for allergy symptoms, 149.86, cm, 08/20/24 8:52:00 EDT, Height, 70, kg, 06/15/23 19:26:00 EST, Dry Weight Start Date: 08/20/24 Status: Ordered Medication Dispense Status: Completed Quantity: 1.0 Unit: each Total Allowed Fills: 2 Fills Dispensed: 0 baclofen 20 mg oral tablet 45 each, 0 Refill(s), TAKE 1 TABLET BY MOUTH TWICE A DAY NEEDED FOR MUSCLE SPASM, Refills 0, 12/02/24 3:18:00 PM EDT, Partial fill upon patient request if the prescription is for a schedule II opioid drug. Start Date: 12/02/24 Status: Ordered Medication Dispense Status: Completed Total Allowed Fills: 1 Fills Dispensed: 0 cetirizine 10 mg oral tablet 30 each, 0 Refill(s), TAKE 1 TABLET BY MOUTH EVERY DAY, 0 Refills, 08/16/23 3:29:00 PM EDT, Partial fill upon patient request if the prescription is for a schedule II opioid drug. Start Date: 08/16/23 Status: Ordered Medication Dispense Status: Completed Total Allowed Fills: 1 Fills Dispensed: 0 clobetasol 0.05% topical ointment 60 Gm, 0 Refill(s), APPLY TO ECZEMA TWICE DAILY NEEDED. AVOID USE ON THE FACE AND GROIN, 0 Refills, 12/02/24 3:18:00 PM EDT, Partial fill upon patient request if the prescription is for a schedule II opioid drug. Start Date: 12/02/24 Status: Ordered Medication Dispense Status: Completed Total Allowed Fills: 1 Fills Dispensed: 0 cromolyn 20 mg/mL oral solution 960 mL, 0 Refill(s), 0 Refills, 12/02/24 3:18:00 PM EDT, Partial fill upon patient request if the prescription is for a schedule II opioid drug. Start Date: 12/02/24 Status: Ordered Medication Dispense Status: Completed Total Allowed Fills: 1 Fills Dispensed: 0 cromolyn 4% ophthalmic solution 30 mL, 0 Refill(s), INSTILL 2 DROPS INTO EACH EYE EVERY 3-4 HOURS WHILE AWAKE, 0 Refills, 12/02/24 3:19:00 PM EDT, Partial fill upon patient request if the prescription is for a schedule II opioid drug. Start Date: 12/02/24 Status: Ordered Medication Dispense Status: Completed Total Allowed Fills: 1 Fills Dispensed: 0 Depakote ER 250 mg oral tablet, extended release 1 tablet = 250 mg, By Mouth, Daily, # 30 tablet, 5 Refills, Maintenance, 12/02/24 3:26:00 PM EDT, ER Tablet, [facility] #[id number], Partial fill upon patient request if the prescription is for a schedule II opioid drug., 149.86, cm, 12/02/24 14:29:00 EDT, Height, 70, kg, 06/15/23 19:26:00 EST, Dry Weight Start Date: 12/02/24 Status: Ordered Medication Dispense Status: Completed Quantity: 30.0 Unit: tablet Total Allowed Fills: 6 Fills Dispensed: 0 EPINEPHrine 0.3 mg injectable solution 2 each, 0 Refill(s), USE DIRECTED FOR ANAPHYLAXIS THEN CALL 911, 0 Refills, 08/16/23 3:29:00 PM EDT, Partial fill upon patient request if the prescription is for a schedule II opioid drug. Start Date: 08/16/23 Status: Ordered Medication Dispense Status: Completed Total Allowed Fills: 1 Fills Dispensed: 0 famotidine 20 mg oral tablet 180 each, 0 Refill(s), TAKE 1 TABLET BY MOUTH TWICE A DAY, Refills 0, 12/02/24 3:18:00 PM EDT, Partial fill upon patient request if the prescription is for a schedule II opioid drug. Start Date: 12/02/24 Status: Ordered Medication Dispense Status: Completed Total Allowed Fills: 1 Fills Dispensed: 0 famotidine 40 mg oral tablet 1 tablet = 40 mg, By Mouth, Daily, 60 each, 0 Refill(s), TAKE 1 TABLET BY MOUTH TWICE DAILY, # 30 each, 2 Refills, Maintenance, 08/16/23 3:35:00 PM EDT, [place], [facility] #[id number], Partial fill upon patient request if the prescription is for a schedule II opioid drug., 149.86, cm, 08/16/23 15:08:00 EDT, Height, 70, kg, 06/15/23 19:26:00 EST, Dry Weight Start Date: 08/16/23 Status: Ordered Medication Dispense Status: Completed Quantity: 30.0 Unit: each Total Allowed Fills: 3 Fills Dispensed: 0 Ferrets 325 mg oral tablet 1 tablet = 325 mg, By Mouth, Daily, # 90 tablet, 3 Refills, Maintenance, 08/20/24 9:25:00 AM EDT, Tablet, [facility]/pharmacy #[id number], Partial fill upon patient request if the prescription is for a schedule IIopioid drug., 149.86, cm, 08/20/24 8:52:00 EDT, Height, 70, kg, 06/15/23 19:26:00 EST, Dry Weight Start Date: 08/20/24 Status: Ordered Medication Dispense Status: Completed Quantity: 90.0 Unit: tablet Total Allowed Fills: 4 Fills Dispensed: 0 FLUoxetine 20 mg oral capsule 20 mg, 1, capsule, By Mouth, Daily, # 30 capsule, Refills 11, Tot. Refills 11, Maintenance, 243:09:00 PM EDT, Route to Pharmacy Electronically, [facility] #[id number], Partial fill upon patient request if the prescription is for a schedule II opioid drug., 149.86, cm, 09/28/23 14:41:00 EDT, Height, 70, kg, 06/15/23 19:26:00 EST, Dry Weight Start Date: 10/19/23 Status: Ordered Medication Dispense Status: Completed Quantity: 30.0 Unit: capsule Total Allowed Fills: 12 Fills Dispensed: 0 fluticasone 50 mcg/inh nasal spray 1 sprays = 50 mcg, Nares, Both, 2 times a day, # 16 Gm, 1 Refills, Maintenance, 08/20/24 9:26:00 AM EDT, Nasal [place], [facility]/pharmacy #[id number], Partial fill upon patient request if the prescription is for aschedule II opioid drug., 1 sprays Nares, Both 2 times a day, 149.86, cm, 08/20/24 8:52:00 EDT, Height, 70, kg, 06/15/23 19:26:00 EST, Dry Weight Start Date: 08/20/24 Status: Ordered Medication Dispense Status: Completed Quantity: 16.0 Unit: g Total Allowed Fills: 2 Fills Dispensed: 0 gabapentin 300 mg oral capsule See Instructions, TAKE 1 CAPSULE BY MOUTH EVERY MORNING AND 2 CAPSULES AT BEDTIME, # 90 capsule, Refills 0, Maintenance, 01/15/25 10:07:00 AM EDT, Instructions Replace Required Details, Route to Pharmacy Electronically, [facility] [id number], 149.86, cm, 12/02/24 14:29:00 EDT, Height, 70, kg, 06/15/23 19:2 6:00 EST, Dry Weight Start Date: 01/15/25 Status: Ordered Medication Dispense Status: Completed Quantity: 90.0 Unit: capsule Total Allowed Fills: 1 Fills Dispensed: 0 hydrOXYzine pamoate 50 mg oral capsule 90 each, 0 Refill(s), TAKE1 CAPSULE (50 MG) NIGHTLY FOR SLEEP, 0 Refills, 12/02/24 3:19:00 PM EDT, Partial fill upon patient request if the prescription is for a schedule II opioid drug. Start Date: 12/02/24 Status: Ordered Medication Dispense Status: Completed Total Allowed Fills: 1 Fills Dispensed: 0 ketoconazole 2% topical shampoo See Instructions, APPLY TO WET HAIR LET SIT FOR 3 MINS THEN RINSE. USE EVERY 3 DAYS FOR 8 WEEKS, # 120 mL, 0 Refills, Maintenance, 01/17/25 11:58:00 AM EDT, [facility] STORE [id number], 30, APPLY TO WET HAIR LET SIT FOR 3 MINS THEN RINSE. USE EVERY 3 DAYS FOR 8 WEEKS, 149.86, cm, 12/02/24 14:29:00 EDT, Height, 70, kg, 06/15/23 19:26:00 EST, Dry Weight Start Date: 01/17/25 Status: Ordered Medication Dispense Status: Completed Quantity: 120.0 Unit: mL Total Allowed Fills: 1 Fills Dispensed: 0 Miscellaneous Rx 0 Refills, 60 each, 0 Refill(s), TAKE 1 TABLET BY MOUTH TWICE A DAY NEEDED FOR MUSCLE SPASMS, 08/16/23 3:28:00 PM EDT Start Date: 08/16/23 Status: Ordered Medication Dispense Status: Completed Total Allowed Fills: 1 Fills Dispensed: 0 multivitamin Multiple Vitamins oral tablet 1 tablet, By Mouth, Daily, # 90 tablet, 0 Refills, Maintenance, 08/20/24 9:27:00 AM EDT, Tablet, [facility]/pharmacy #[id number], Partial fill upon patient request if the prescription is for a schedule II opioid drug., 1 tablet By Mouth Daily, 149.86, cm, 08/20/24 8:52:00 EDT, Height, 70, kg, 06/15/23 19:26:00 EST, Dry Weight Start Date: 08/20/24 Status: Ordered Medication Dispense Status: Completed Quantity: 90.0 Unit: tablet Total Allowed Fills: 1 Fills Dispensed: 0 norethindrone 0.35 mg oral tablet 1 tablet, By Mouth, Daily, # 84 tablet, 3 Refills, Maintenance, 11/11/24 1:03:00 PM EDT, [facility]/pharmacy #[id number], 149.86, cm, 08/20/24 8:52:00 EDT, Height, 70, kg, 06/15/23 19:26:00 EST, Dry Weight Start Date: 11/11/24 Status: Ordered Medication Dispense Status: Completed Quantity: 84.0 Unit: tablet Total Allowed Fills: 4 Fills Dispensed: 0 oxybutynin 5 mg oral tablet 1 tablet = 5 mg, By Mouth, 3 times a day, # 30 tablet, 5 Refills, Maintenance, 12/06/24 1:42:00 PM EDT, Tablet, [facility]/pharmacy #[id number], Partial fill upon patient request if the prescription is for a schedule II opioid drug., 149.86, cm, 12/02/24 14:29:00 EDT, Height, 70, kg, 06/15/23 19:26:00 EST, Dry Weight Start Date: 12/06/24 Status: Ordered Medication Dispense Status: Completed Quantity: 30.0 Unit: tablet Total Allowed Fills: 6 Fills Dispensed: 0 Indications: Urge incontinence; pregabalin 75 mg oral capsule 60 each, 0 Refill(s), TAKE 1 CAPSULE BY MOUTH TWICE A DAY, 0 Refills, 12/02/24 3:19:00 PM EDT, Partial fill upon patient request if the prescription is for a schedule II opioid drug. Start Date: 12/02/24 Status: Ordered Medication Dispense Status: Completed Total Allowed Fills: 1 Fills Dispensed: 0 ProAir HFA 90 mcg/inh inhalation aerosol with adapter 2, puffs, Inhalation, Every 4 hours, PRN, use with spacer chamber, # 1 each, Refills 5, Tot. Refills 5, Maintenance, 03/13/20 10:18:00 AM EDT, Aerosol, Route to Pharmacy Electronically, [id number], [facility] #[id number], 150, cm, 07/04/19 16:56:00 EST, Height, 76.3, kg, 04/05/19 10:26:00 EST, Dry Weight Start Date: 03/13/20 Status: Ordered Medication Dispense Status: Completed Quantity: 1.0 Unit: each Total Allowed Fills: 6 Fills Dispensed: 0 propranolol 10 mg oral tablet 90 each, 0 Refill(s), TAKE 1 TABLET DAILY NEEDED FOR ANXIETY/PANIC ATTACK HOLD DOSAGE FOR HR <55 SBP<100 DBP<60, Refills 0, 12/02/24 3:19:00 PM EDT, Partial fill upon patient request if theprescription is for a schedule II opioid drug. Start Date: 12/02/24 Status: Ordered Medication Dispense Status: Completed Total Allowed Fills: 1 Fills Dispensed: 0 Singulair 10 mg oral tablet 10 mg, 1, tablet, By Mouth, Daily, # 30 tablet, Refills 11, Tot. Refills 11, Maintenance, 08/16/23 3:36:00 PM EDT, Route to Pharmacy Electronically, [facility] #[id number], 149.86, cm, 08/16/23 15:08:00 EDT, Height, 70, kg, 06/15/23 19:26:00 EST, Dry Weight Start Date: 08/16/23 Status: Ordered Medication Dispense Status: Completed Quantity: 30.0 Unit: tablet Total Allowed Fills: 12 Fills Dispensed: 0 Symbicort 160mcg/4.5mcg Inhaler 2, puffs, Inhalation, 2 times a day, # 1 each, Refills 3, Tot. Refills 3, Maintenance, 08/16/23 3:35:00 PM EDT, Inhaler, Route to Pharmacy Electronically, [id number], [id number], 149.86, cm, 08/16/23 15:08:00 EDT, Height, 70, kg, 06/15/23 19:26:00 EST, Dry Weight Start Date: 08/16/23 Status: Ordered Medication Dispense Status: Completed Quantity: 1.0 Unit: each Total Allowed Fills: 4 Fills Dispensed: 0 tacrolimus 0.1% topical ointment 100 Gm, 0 Refill(s), PLEASE SEE ATTACHED FOR DETAILED DIRECTIONS, 0 Refills, 12/02/24 3:20:00 PM EDT,Partial fill upon patient request if the prescription is for a schedule II opioid drug. Start Date: 12/02/24 Status: Ordered Medication Dispense Status: Completed Total Allowed Fills: 1 Fills Dispensed: 0 Vitamin D3 2000 intl units oral capsule 90 each, 0 Refill(s), TAKE 1 CAPSULE DAILY FOR VITAMIN D DEFICIENCY, 0 Refills, 12/02/24 3:20:00 PM EDT, Partial fill upon patient request if the prescription is for a schedule II opioid drug. Start Date: 12/02/24 Status: Ordered Medication Dispense Status: Completed Total Allowed Fills: 1 Fills Dispensed: 0 Problem List Condition Confirmation Course Effective Dates Status H ealth Status Informant hx Arthrogryposis Confirmed Active Asthma Confirmed Active History of abnormal cervical Pap smear Confirmed Active History of gestational hypertension Confirmed Active Migraine with aura Confirmed Active Rectal bleeding Confirmed Active Scoliosis Confirmed Active Bilateral club feet Surgey at 10 months of age Confirmed Active Social History Social History Type Response Smoking Status Never (less than 100 in lifetime) entered on: 08/17/18 Sexual Orientation Self described orien tation: ; Straight or heterosexual Sex Sex Representation Female (finding) Implantable Device List Procedure Provider Procedure Date Device Type Site Fusion Subtalar Calcaneus Cuboid Michelle Echeverria MD Unknown Ankle Device Identifier Serial Number Lot or Batch Number Manufacturing Date Expiration Date Distinct Identification Code MRI Safety Implantable Status Assigning Authority Unknown [id number] Unknown Unknown 06/14/22 Unknown Unknown Active Unknown Unknown [id number] Unknown Unknown 06/14/22 Unknown Unknown Active Unknown Unknown [id number] Unknown Unknown 06/14/22 Unknown Unknown Active Unknown Unknown Unknown [id number] Unknown 09/25/22 Unknown Unknown Active Unk nown Unknown Unknown [id number] Unknown 09/25/22 Unknown Unknown Active Unk nown Procedure Provider Procedure Date Device Type Site Fusion Talonavicular Michelle Echeverria MD 08/11/21 Unknow n Ankle Device Identifier Serial Number Lot or Batch Number Manufacturing Date Expiration Date Distinct Identification Code MRI Safety Implantable Status Assigning Authority Unknown [id number] Unknown Unknown 06/14/22 Unknown Unknown Active Unknown Patient Care team information Care Team Personnel Name: Carlie Freitas RN Position: [facility] RN Member Role: Primary Care Nurse Name: Tonya Reese RN Position: [facility] RN Member Role: Primary Care Nurse Name: Kesha Salinas MD Position: [facility] Resident Member Role: PCP Address: [address] [place] [address] Telecom: Care Team Related Persons Name: CARMEN GONZALEZ Name: JUDY YA Name: OZ STARKEY Name: TIANA ELDER Insurance Providers Guarantor name: RYAN ELDER Health Plan Information #: 1 Payer: [employer] [facility] [place] Payer Identifier: NA Member Number: [id number] Group Number: [id number] Subscriber Identifier: NA Relationship to Subscriber: self Coverage Type: Medicaid (Managed Care) Coverage Verification Date: NA Telecom: NA Address:
--- OUTSIDE RECORDS SUMMARY | 2025-05-07 23:59 | XMS_ITS | Continuity of Care Document ---
Author Organization [facility] Address [address] [place] [id number]- Care Team Providers Care Marble Ceiling Installer Name Role Phone Brad JUARES, Kesha Primary Care Physician [place] [facility] 04/07/25 - 05/07/[address] [address]- Attending Physician: Admtr, [id number] Admitting Physician: Admtr, Ar8 Referring Physician: Admtr, Ar8 Encounter Type: Triage Allergies, Adverse Reactions, Alerts [...] Maintenance, 06/15/23 9:44:00 PM EST, Capsule, [id number], Partial fill upon patient request if the [...] 1 Refills, Maintenance, 08/20/24 9:26:00 AM EDT, [place], [facility]/pharmacy #[id number], Partial fill upon patient request if [...] Maintenance, 12/02/24 3:26:00 PM EDT, ER Tablet, [facility]/pharmacy #[id number], Partial fill upon patient request if the [...] Refills, Maintenance, 08/16/23 3:35:00 PM EDT, Suspension, [facility] #[id number], Partial fill upon patient request if the [...] Refills, Maintenance, 08/20/24 9:25:00 AM EDT, Tablet, [facility]/pharmacy #[id number], Partial fill upon patient request if [...] capsule, Refills 11, Tot. Refills 11, Maintenance, :09:00 PM EDT, Route to Pharmacy Electronically, [facility] #[id number], Partial fill upon patient request if the [...] Refills, Maintenance, 08/20/24 9:26:00 AM EDT, Nasal [place], [facility]/pharmacy #[id number], Partial fill upon patient request if [...] Replace Required Details, Route to Pharmacy Electronically, [facility] [id number], 149.86, cm, 12/02/24 14:29:00 EDT, Height, 70, [...] 0 Refills, Maintenance, 01/17/25 11:58:00 AM EDT, [facility] 25[facility], 30, APPLY TO WET HAIR LET SIT [...] Refills, Maintenance, 08/20/24 9:27:00 AM EDT, Tablet, [facility]/pharmacy #[id number], Partial fill upon patient request if [...] 3 Refills, Maintenance, 11/11/24 1:03:00 PM EDT, [facility]/pharmacy #[id number], 149.86, cm, 08/20/24 8:52:00 EDT, Height, 70, kg, 06/15/23 19:26:00 EST, Dry Weight Start Date: 11/11/24 Status: Ordered Medication Dispense Status: Completed Quantity: 84.0 Unit: tablet Total Allowed Fills: 4 Fills Dispensed: 0 oxybutynin 5 mg oral tablet 1 tablet = 5 mg, By Mouth, 3 times a day, # 30 tablet, 5 Refills, Maintenance, 12/06/24 1:42:00 PM EDT, Tablet, [facility]/pharmacy #[id number], Partial fill upon patient request if the [...] AM EDT, Aerosol, Route to Pharmacy Electronically, [id number], [facility] #[id number], 150, cm, 07/04/19 16:56:00 EST, Height, 76.3, [...] 3:36:00 PM EDT, Route to Pharmacy Electronically, [facility] #[id number], 149.86, cm, 08/16/23 15:08:00 EDT, Height, 70, kg, 06/15/23 19:26:00 EST, Dry Weight Start Date: 08/16/23 Status: Ordered Medication Dispense Status: Completed Quantity: 30.0 Unit: tablet Total Allowed Fills: 12 Fills Dispensed: 0 Symbicort 160mcg/4.5mcg Inhaler 2, puffs, Inhalation, 2 times a day, # 1 each, Refills 3, Tot. Refills 3, Maintenance, 08/16/23 3:35:00 PM EDT, Inhaler, Route to Pharmacy Electronically, [id number], [id number], 149.86, cm, 08/16/23 15:08:00 EDT, Height, 70, [...] MRI Safety Implantable Status Assigning Authority Unknown [id number] Unknown Unknown 06/14/22 Unknown Unknown Active Unknown Unknown [id number] Unknown Unknown 06/14/22 Unknown Unknown Active Unknown Unknown [id number] Unknown Unknown 06/14/22 Unknown Unknown Active Unknown Unknown Unknown [id number] Unknown 09/25/22 Unknown Unknown Active Unk nown Unknown Unknown [id number] Unknown 09/25/22 Unknown Unknown Active Unk nown Procedure Provider Procedure Date Device Type Site Fusion Talonavicular Michelle Echeverria MD 08/11/21 Unknow n Ankle Device Identifier Serial Number Lot or Batch Number Manufacturing Date Expiration Date Distinct Identification Code MRI Safety Implantable Status Assigning Authority Unknown [id number] Unknown Unknown 06/14/22 Unknown Unknown Active Unknown Patient Care team information Care Team Personnel Name: Carlie Freitas RN Position: [facility] RN Member Role: Primary Care Nurse Name: Tonya Reese RN Position: [facility] RN Member Role: Primary Care Nurse Name: Kesha Salinas MD Position: [facility] Resident Member Role: PCP Address: [address] [place] [address] Telecom: Care Team Related Persons Name: CARMEN GONZALEZ Name: JUDY YA Name: OZ STARKEY Name: TIANA ELDER Insurance Providers Guarantor name: RYAN ELDER Health Plan Information #: 1 Payer: [facility] Payer Identifier: NA Member Number: [id number] Group Number: [id number] Subscriber Identifier: NA Relationship to Subscriber: self Coverage Type: Medicaid (Managed Care) Coverage Verification Date: NA Telecom: NA Address: NA
--- OUTSIDE RECORDS SUMMARY | 2025-05-10 23:59 | XMS_ITS | Continuity of Care Document ---
Author Organization [facility] Address [address] [place] [address]- Care Team Providers Care Supervisor Calibration Name Role Phone Brad JUARES, Kesha Primary Care Physician Encounter [facility] Date(s): 04/10/25 - 05/10/[address] [address] Encounter Type: Triage Allergies, Adverse Reactions, [...] Maintenance, 06/15/23 9:44:00 PM EST, Capsule, [id number], Partial fill upon patient request if the [...] 1 Refills, Maintenance, 08/20/24 9:26:00 AM EDT, [place], [facility]pharmacy #[id number], Partial fill upon patient request [...] Maintenance, 12/02/24 3:26:00 PM EDT, ER Tablet, [facility]/pharmacy #[id number], Partial fill upon patient request if the [...] Refills, Maintenance, 08/16/23 3:35:00 PM EDT, [place], [id number], Partial fill upon patient request if the [...] Refills, Maintenance, 08/20/24 9:25:00 AM EDT, Tablet, [facility]/pharmacy #[id number], Partial fill upon patient request if the [...] 243:09:00 PM EDT, Route to Pharmacy Electronically, [id number], Partial fill upon patient request if the [...] Refills, Maintenance, 08/20/24 9:26:00 AM EDT, Nasal [place], [facility]/pharmacy #[id number], Partial fill upon patient request [...] Replace Required Details, Route to Pharmacy Electronically, [id number], 149.86, cm, 12/02/24 14:29:00 EDT, Height, 70, [...] 0 Refills, Maintenance, 01/17/25 11:58:00 AM EDT, [id number], 30, APPLY TO WET HAIR LET SIT [...] Refills, Maintenance, 08/20/24 9:27:00 AM EDT, Tablet, [facility]/pharmacy #[id number], Partial fill upon patient request [...] 3 Refills, Maintenance, 11/11/24 1:03:00 PM EDT, [facility]/pharmacy #[id number], 149.86, cm, 08/20/24 8:52:00 EDT, Height, 70, kg, 06/15/23 19:26:00 EST, Dry Weight Start Date: 11/11/24 Status: Ordered Medication Dispense Status: Completed Quantity: 84.0 Unit: tablet Total Allowed Fills: 4 Fills Dispensed: 0 oxybutynin 5 mg oral tablet 1 tablet = 5 mg, By Mouth, 3 times a day, # 30 tablet, 5 Refills, Maintenance, 12/06/24 1:42:00 PM EDT, Tablet, [facility]/pharmacy #[id number], Partial fill upon patient request [...] AM EDT, Aerosol, Route to Pharmacy Electronically, [id number], [facility] #[id number], 150, cm, 07/04/19 16:56:00 EST, Height, 76.3, [...] 3:36:00 PM EDT, Route to Pharmacy Electronically, [facility] #[id number], 149.86, cm, 08/16/23 15:08:00 EDT, Height, 70, kg, 06/15/23 19:26:00 EST, Dry Weight Start Date: 08/16/23 Status: Ordered Medication Dispense Status: Completed Quantity: 30.0 Unit: tablet Total Allowed Fills: 12 Fills Dispensed: 0 Symbicort 160mcg/4.5mcg Inhaler 2, puffs, Inhalation, 2 times a day, # 1 each, Refills 3, Tot. Refills 3, Maintenance, 08/16/23 3:35:00 PM EDT, Inhaler, Route to Pharmacy Electronically, [id number], [id number], 149.86, cm, 08/16/23 15:08:00 EDT, Height, 70, [...] MRI Safety Implantable Status Assigning Authority Unknown [id number] Unknown Unknown 06/14/22 Unknown Unknown Active Unknown Unknown [id number] Unknown Unknown 06/14/22 Unknown Unknown Active Unknown Unknown [id number] Unknown Unknown 06/14/22 Unknown Unknown Active Unknown Unknown Unknown [id number] Unknown 09/25/22 Unknown Unknown Active Unk nown Unknown Unknown [id number] Unknown 09/25/22 Unknown Unknown Active Unk nown Procedure Provider Procedure Date Device Type Site Fusion Talonavicular Michelle Echeverria MD 08/11/21 Unknow n Ankle Device Identifier Serial Number Lot or Batch Number Manufacturing Date Expiration Date Distinct Identification Code MRI Safety Implantable Status Assigning Authority Unknown [id number] Unknown Unknown 06/14/22 Unknown Unknown Active Unknown Patient Care team information Care Team Personnel Name: Carlie Freitas RN Position: [facility] RN Member Role: Primary Care Nurse Name: Tonya Reese RN Position: [facility] RN Member Role: Primary Care Nurse Name: Kesha Salinas MD Position: [facility] Resident Member Role: PCP Address: [address] [place] [address] Telecom: Care Team Related Persons Name: CARMEN GONZALEZ Name: JUDY YA Name: OZ STARKEY Name: TIANA ELDER Insurance Providers Guarantor name: RYAN ELDER Health Plan Information #: 1 Payer: F?rsat [employer]at [facility] [employer] Payer Identifier: NA Member Number: [id number] Group Number: [id number] Subscriber Identifier: NA Relationship to Subscriber: self Coverage Type: Medicaid (Managed Care) Coverage Verification Date: NA Telecom: NA Address:
--- NOTE | 2025-05-12 15:20 | A.OFFVIS_ITS ---
Vital Signs 05/12/25 15:21 Height 4 ft 11 in Weight 131 lb 2.801 oz BMI 26.5 BP 110/60 Blood Pressure Location Lt brachial Position Sitting Pulse 97 Pulse Source Pulse Oximeter Pulse Oximetry (%) 100 Oxygen Delivery Method Room Air Intake Visit Reasons: Asthma Clinical Research Specialist Required: No Lump Receiver: Lump Receiver offered & declined Accompanied by: Self / Same As Patient Allergies amoxicillin Allergy (Mild, Verified 05/12/25 15:23) Hives Penicillins Allergy (Mild, Verified 05/12/25 15:23) Hives sulfamethoxazole (From Bactrim) Allergy (Mild, Verified 05/12/25 15:23) Hives trimethoprim (From Bactrim) Allergy (Mild, Verified 05/12/25 15:23) Hives HPI Comments Details: The patient is a 29-year-old woman with a known history asthma. She states that she has been diagnosed with asthma as a child. She never he was hospitalized for however. She has not required any prednisone. And overall she had been doing very well for many years. More recently she did have a child. After she gave to her son about a year ago she started developing worsening shortness of breath. She has also has had worsening cough. She has had a few episodes where she felt she could not get any air in to her lungs. She has use her rescue inhaler with only partial resolution of the symptoms. On further questions she has had formal allergy testing in the past. She is allergic to multiple things. She was offered allergy shots but she deferred at the time. 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 Those were surgically treated at [facility]. In regards of medications she does use her rescue inhaler as needed couple times a week. She was given a prescription for Breo which she started using initially but then stopped after no significant improvement. 05/11/2020 the patient is here for pulmonary follow-up visit. Overall she is doing well. She has not had any significant coughing spells or significant shortness of breath. She has not had to use her rescue inhaler. Although, when she did perform the pulmonary function studies she did have a hard time afterwards with tremulousness and some shortness of breath. Her symptoms did improve and she did not need any medical intervention. It is likely that she had a reaction to the albuterol and also with the forced exhalation. Patient left the office without letting us know that she was uncomfortable with symptoms. In the meantime she did have allergy testing which was all negative which is reassuring. She also had PFTs that appear to be normal. Although, she did have some significant air trapping which is likely suggestive of small airways disease which could be seen with asthma. The patient also had 1 flow volume loop with some plateauing of the inspiratory limb which could be indicative of some dynamic obstruction due to vocal cord dysfunction. 11/02/2023 The patient is here for a sick visit. Having worsening productive cough for 2 weeks. Moderate in severity, although, seems to be getting a little better. +sick contacts. He inhaler does not seem to be helping. She did have bloodwork, but someis still pending. Still having laryngospams, but, overall better. She did comeplete the speech therapy sessions. 03/22/2024 the patient is here for a pulmonary follow-up visit. She has had episodes of nausea vomiting and abdominal discomfort. She has been to the ED for worsening symptoms. She was found to have electrolyte derangements and she was treated accordingly for both dehydration and electrolyte derangements. She did have a barium swallow which we did review with her over the phone and we had refer her to GI. The patient does have a GI appointment coming in April. The a barium swallow did demonstrate that she has gastroparesis also severe reflux in addition to potential hyperplastic polyps in the gastric mucosa. Therefore, she is going to have to have that further evaluated when she is seen by GI. In the meantime she is agreeable to starting a small dose of Reglan. She knows about the potential side effects of tremors. Will start her on a small dose to see if can provide her with some promotility. As far as respiratory status she is doing what well. She is continue her respiratory medications as prescribed. As far as positional therapies. She is going to look into risers with the head of the bed or a wedge pillow for between the mattress. She is going to start taking in liquids with electrolytes such as Pedialyte that she can do throughout the day. Will follow-up in 3-4 months. If the patient has any worsening symptoms she will call for an earlier assessment. 07/16/2024 the patient is here for pulmonary follow-up visit. Overall she is doing well. Her nausea symptoms are better she stopped taking the metoclopramide as a recommendation from GI that is perfectly good. The patient continues with her GI medications and she is waiting endoscopy. She has not heard as of yet. I did reach out to GI to see where she can find out about the procedure itself. The patient otherwise has been okay she did follow-up with Allergy and immunology. 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 She will continue her current respiratory therapy at this time. She will follow-up with Allergy in GI. For now she is going to maintain a reflux diet and try to sleep elevated to minimize her symptoms. If any issues arise she will call for an earlier assessment otherwise will follow-up in 6 months. 01/13/2025 the patient is here for a pulmonary follow-up visit. Overall she is doing okay. Breathing seems to be stable on the current respiratory regimen. Although sometimes she feels some chest tightness and heaviness. She is still dealing with the GI issues. She does have evidence of gastroparesis. She understands that this could potentially worsening respiratory capacity. Her dietitian has helped her decrease some although symptoms. Although we could try her on azithromycin for promotility effects. She can talk to GI doctor afterwards to see if this is something to consider. Primarily does not help with her promotility issues and hopefully decreasing her respiratory manifestations. 05/12/2025 the patient is here for pulmonary follow-up visit. She has been complaining of nasal congestion. Positive sick contacts initially with URI like symptoms. Her nasal congestion has gotten worse. Her cough is getting worse. She feels sinus pressure. She is concerned that it is going to go into her lungs. She is already starting to have worsening cough. She denies any fevers or chills. Her respiratory exam is reassuring. She does have significant nasal congestion and postnasal drip. Her symptoms are consistent with sinusitis. Will go ahead and start treatment for. In the meantime the patient is no better she will call. [facility] Medical History (Updated 04/09/25 @ 11:33 by Rosenda Barr RN) Scoliosis Migraine Dysphagia Bronchitis Pleuritic chest pain Vocal cord dysfunction Nasal congestion GERD (gastroesophageal reflux disease) Clubbed foot Allergic reaction Asthma Laryngeal spasm Surgical History (Updated 04/09/25 @ 11:15 by Rosenda Barr RN) History of esophagogastroduodenoscopy (EGD) (09/19/24) History of ankle surgery Family History Other Asthma Social History Patient Tobacco Use Status: Never used Tobacco Review of Systems Const Reports difficulty sleeping and Denies night sweats ENT Denies change in voice, Reports dysphagia, Denies lip swelling, Denies mouth pain, Reports nasal congestion, Reports nasal discharge, Reports disequilibrium, Reports post nasal drip, Reports sinus pain, Reports sinus pressure and Denies tongue swelling Card Denies chest pain and Denies dyspnea Resp Reports chest congestion, Reports cough, Denies pain on inspiration, Denies pain with cough, Denies dyspnea and Denies wheezing GI Denies abdominal pain, Reports dysphagia, Reports dyspepsia and Reports heartburn Musc Denies no additional complaints Neuro Denies Neuro-related abnormal movements and Reports disequilibrium Psych Denies no additional complaints Jayy/Lymph Denies easy bleeding and Denies lymphadenopathy Aller/Immun Denies lip swelling, Denies tongue swelling and Denies wheezing Physical Exam Vital Signs: Last Vital Signs Pulse 97 05/12/25 15:21 BP 110/60 05/12/25 15:21 Pulse Ox 100 05/12/25 15:21 Oxygen Delivery Method Room Air 05/12/25 15:21 BMI result Body Mass Index 26.5 Const General: alert HEENT General nose exam: Abnormal mucous membranes and turbinates present erythematous Face and sinus: Yes sinus tenderness Neck Neck: Yes normal visual inspection, Yes full ROM and Yes no lymphadenopathy Chest Chest palpation & inspection: normal inspection of the chest Resp Effort & Inspection: normal respiratory effort Auscultation: clear to auscultation bilaterally Cardio Rate: regular rate Rhythm: regular rhythm Heart sounds: S1 normal heart sound present and S2 normal heart sound present GI Palpation (GI): Soft to palpation and nontender Auscultation: normal bowel sounds Skin General skin exam: rashes and/or lesions noted Extrem General: Yes no clubbing, cyanosis or edema Left lower extremity: foot (cast) Assessment & Plan Assessment & Plan (1) Asthma: Code(s): J45.909 - Unspecified asthma, uncomplicated Category: Medical Qualifiers: Asthma severity: moderate Asthma persistence: persistent Asthma complication type: uncomplicated Qualified Code(s): J45.40 - Moderate persistent asthma, uncomplicated (2) Nasal congestion: Code(s): R09.81 - Nasal congestion Category: Medical (3) GERD (gastroesophageal reflux disease): Code(s): K21.9 - Gastro-esophageal reflux disease without esophagitis Category: Medical Qualifiers: Esophagitis presence: without esophagitis Qualified Code(s): K21.9 - Gastro-esophageal reflux disease without esophagitis (4) Allergic reaction: Comment: Has had significant allergic episodes although her testing was all negative Code(s): T78.40XA - Allergy, unspecified, initial encounter Category: Medical Qualifiers: Encounter type: subsequent encounter Qualified Code(s): T78.40XD - Allergy, unspecified, subsequent encounter (5) Laryngeal spasm: Code(s): J38.5 - Laryngeal spasm Category: Medical (6) Vocal cord dysfunction: Code(s): J38.3 - Other diseases of vocal cords Category: Medical (7) Dysphagia: Code(s): R13.10 - Dysphagia, unspecified Category: Medical Qualifiers: Dysphagia type: unspecified Qualified Code(s): R13.10 - Dysphagia, unspecified Plan Advair HFA BID RYAN as needed Continue Singulair Continue Fluticasone nasal spray Benzonates as needed for cough Start doxycycline start Sudafed Afrin for 3-5 days Mucinex DM, GoodRx card provided F/U 4-6 months Medications: New dextromethorphan-guaifenesin 60-1,200 mg ER (Mucinex DM) 1 tab PO Q12H 20 tabs 0RF 10 days pseudoephedrine HCl ER 120 mg PO Q12H 60 tabs 1RF 30 days doxycycline monohydrate 100 mg PO BID 28 tabs 0RF 14 days oxymetazoline 0.05% (Afrin (oxymetazoline)) 2 sprays intranasal Q12H PRN 22 mL 0RF nasal congestion 5 days Coding Level of Care Code Est Pt Level 4 (23313) Diagnoses Moderate persistent asthma without complication J45.40 Asthma severity: moderate Asthma persistence: persistent Asthma complication type: uncomplicated Nasal congestion R09.81 Gastroesophageal reflux disease without esophagitis K21.9 Esophagitis presence: without esophagitis Allergic reaction, subsequent encounter T78.40XD Encounter type: subsequent encounter Laryngeal spasm J38.5 Vocal cord dysfunction J38.3 Dysphagia, unspecified type R13.10 Dysphagia type: unspecified Time Spent (min) 16
[2025-05-12 15:21] VITALS: BP 110/60; PULSE 97; O2SAT 100; BMI 26.5
--- OUTSIDE RECORDS SUMMARY | 2025-05-12 21:49 | XMS_ITS | Encounter Summary ---
Author Organization [facility] Address [address] [id number] Phone Care Team Providers Care Institutional Custodian Name Role Phone Ann De MD Primary Care Provider Unava ilable Encounter Details Date Type Department Care Team (Late st Contact Info) Description 06/28/2012 Documentation EM Family Medicine [facility] [place] [address] Family Medicine, Physician [facility] [place] [address] Social History Tobacco Use Types Packs/Day Years [...] on filedocumented in this encounter Care Teams Institutional Custodian Relationship Specialty Start Date End Date Ann De MD PCP - General 01/06/17 documented as of this encounter
--- OUTSIDE RECORDS SUMMARY | 2025-05-12 21:49 | XMS_ITS | Encounter Summary ---
Author Organization [facility] Address [address] [id number] Phone Care Team Providers Care Back Feeder Plywood Layup Line Name Role Phone Ann De MD Primary Care Provider Unava ilable Encounter Details Date Type Department Care Team (Late st Contact Info) Description 03/27/2013 Documentation EM Family Medicine [facility] [place] [address] Family Medicine, Physician [facility] [place] [address] Social History Tobacco Use Types Packs/Day Years [...] on filedocumented in this encounter Care Teams Back Feeder Plywood Layup Line Relationship Specialty Start Date End Date Ann De MD PCP - General 01/06/17 documented as of this encounter
--- OUTSIDE RECORDS SUMMARY | 2025-05-12 21:49 | XMS_ITS | Clinical Summary ---
Author Organization [facility] Address [address] [place] [address] Phone Care Team Providers Care Patient Assistant Name Role Phone Ann De MD Primary [...] 84 08/31/2016 12:00 AM EDT Temperature 36.7 C (98.1 F) 08/08/2016 12:00 AM EDT Respiratory Rate - - Oxygen Saturation 100% [...] 03/24/1997, Additional history exists Influenza Vaccines (#1) 2024 03/10/20 16, 03/17/2015, 02/13/2014, Additional history exists COVID-19 Vaccine ( season) 2025 Hepatitis B Vaccines Completed 05/06/1996, 1995, 1995 [...] complete this topic Procedures * Due to [facility] law, this organization might not be sharing sensitive test results. Procedure Name Priority Date/Time Associated Diagnosis Comments CHLAMYDIA AND GONORRHEA, AMPLIFIED Routine 03/21/2012 3:59 PM EDT from Last 3 Months or Most Recently Relevant to Health Maintenance Results * Due to [facility] law, this organization might not be sharing sensitive test results. * Chlamydia and Gonorrhoea, Amplified (03/21/2012 3:59 PM EDT) Pathologist [facility] URINE CHLAMYDIA AMP PROBE NEGATIVE [facility] Comment: NO CHLAMYDIA TRACHOMATIS RNA DETECTED IN THIS PATIENT'S SAMPLE. (REFERENCE RANGE/NORMAL VALUE: NOT DETECTED) URINE GC AMP PROBE NEGATIVE [facility] Comment: NO NEISSERIA GONORRHOEAE RNA DETECTED IN THIS PATIENT'S SAMPLE. (REFERENCE RANGE/NORMAL VALUE: NOT DETECTED) NOTE: THIS TEST USES [employer] MEDIATED AMPLIFICATION METHOD TO DETECT rRNA FROM [...] WITH OTHER AGENTS. 03/21/2012 3:59 PM EDT [facility] - 03/21/2012 3:59 PM EDT URINE CHLAMYDIA GC AMP PROBE us Ann De MD LAB MICROBIOLOGY - GENERAL O RDERABLES Final Result [facility] [address] [place] [address], [place] from Last 3 Months or Most Recently Relevant to Health Maintenance Care Teams Patient Assistant Relationship Specialty Start Date End Date Ann De MD PCP - General 01/06/17
--- OUTSIDE RECORDS SUMMARY | 2025-05-12 21:49 | XMS_ITS | Data Portability ---
Author Organization [facility] Ignacio Albrecht [facility], [facility] Address [address] [place] [address] Care Team Providers Care Mix Technician Name Role Phone [facility] Primary Care Provider Assessment Encounter Date Assessment Date Assessment LastModified by Organization Details LastModified Time 10/18/2023 10/18/2023 I am seeing the patient today under the supervision of Dr. Sawyer who was available but who did not see the patient. HPI: Patient presents today follow-up regarding their Bi-lateral knee. They have had difficulty up and down stairs sitting standing. Previous injection gave good relief until recent. Problems ambulating. Hjlq-smn-rbdrstx medications are helping somewhat but not significantly. Pain is constant aching sometimes sharp pain with giving out sensations. Past family, medical, social history and review of systems has been reviewed, updated and is located in the patient s chart. Examination: The patient is well appearing and in no apparent distress. Alert and oriented x3. Gait is symmetric. Examination of the Bi-lateral knee reveals no evidence of any edema, erythema, or warmth. No Deformity. Range of motion of the knee limited with mild discomfort at the end ranges. Mild effusion. Does have some tenderness to palpation about the medial hemijoint line. No tenderness to palpation about the lateral hemijoint line. Patellofemoral crepitus is noted. mild lateral ligamentous laxity. Negative Torrey s . Calf is supple and nontender. Neurovascularly intact distally. Impression: Bi-lateral Knee osteoarthritis Plan: We discussed the role of conservative management including medications, physical therapy, injection and bracing. At this point the patient was to proceed with injection. Please see procedure note. They will follow up with us as scheduled. [email or web address] Not available 10/18/2023 14:34:45 11/10/2023 11/10/2023 Foot and Ankle Follow-up Patient Note CC/Diagnosis: Hx of bilateral clubfoot s/p surgical correction as a child, hx of right triple hindfoot arthrodesis 2021, HWR, ankle arthroscopy, dorsal talus exostectomy in 2022 with ongoing right anterolateral ankle and hindfoot pain. - Hx of arthrogryposis, hx of bilateral clubfoot s/p surgical correction as a child at [facility] - S/p right triple hindfoot arthrodesis, CINTHIA 08/11/[address] Echeverria - S/p right ankle arthroscopy w/ synovectomy, right TN HWR, dorsal talus exostectomy 06/27/[address] Echeverria HPI: Damaris presents for routine follow-up and CT scan review. Last seen 6 weeks ago. Reports her symptoms are the same. Mostly having pain in the lateral hindfoot area. Worse with activity and better with rest. Rates the pain as a 5 out of 10. She has tried extensive conservative measures. She is here today to review her CT scan and discuss further treatment options. Lives in [place], not currently working, nondiabetic, non-smoker Past family history, medical history, social history, allergies, and review of systems has been reviewed, updated and are located in the patient's chart. PHYSICAL EXAM: Constitutional: Healthy appearing individual in no acute distress Psychiatric: Alert and oriented Respiratory: Unlabored breathing Lymphatic: No lymphadenopathy in the foot/ankle Skin: No open wounds CV: Palpable pedal pulses Neuro: Light touch grossly intact MSK: Focused examination of the right foot and ankle- On standing exam her ankle and hindfoot alignment is approximately neutral. Foot is plantigrade. Unequal exam bilaterally. On the left her ankle and hindfoot alignment are in slight varus. She has adduction of her foot. The foot is plantigrade. No significant cavus. On seated exam her skin is intact. Surgical incisions are well-healed. She has swelling at the anterolateral ankle and hindfoot. Tender in this area. She has a 20 degree arc of motion of the ankle. She is able to get to neutral. Limited hindfoot and subtalar range of motion as expected. She is able to actively flex and extend at the ankle. Reports sensation intact light touch in all distributions. Palpable DP pulse. Foot warm well-perfused. IMAGING: Prior WB XR right foot and ankle reviewed. S/p triple hindfoot arthrodesis. She has a hypoplastic talus. Her mortise is intact, dysmorphic. She appears to have well consolidated fusion of her triple hindfoot arthrodesis. Dorsal midfoot osteophytes present. No evidence of hardware complication. CT scan right 10/31/2023 ([facility]) reviewed. Patient has a dysmorphic tibiotalar joint with mild degenerative change. Status post triple hindfoot arthrodesis. Fusion sites with appropriate bony bridging. Hardware without evidence of complication. No obvious lateral impingement. Naviculocuneiform arthritis present. ASSESSMENT: Hx of bilateral clubfoot s/p surgical correction as a child, hx of right triple hindfoot arthrodesis 2021, HWR, ankle arthroscopy, dorsal talus exostectomy in 2022 with ongoing right anterolateral ankle and hindfoot pain. PLAN: We had a detailed discussion regarding her diagnosis, treatment today, plan moving forward. Reviewed her CT scan findings in detail. Difficult to exactly nail down her symptoms on exam and CT scan. They are in the sinus Tarsi area which is well fused on CT scan. She does have naviculocuneiform arthritis which is not currently symptomatic on exam. Recommend we continue with conservative measures. Emphasized the challenging nature of treating both her arthrogryposis and prior clubfoot now status post multiple procedures both as a child and adult. It is unlikely her foot will ever feel appropriate to her report. The alignment of her foot is currently significantly improved especially considering its improved clinical appearance compared to the left side which is less symptomatic for her. Emphasized continued conservative measures. Discussed the role of corticosteroid injection. Discussed the risk, benefits and alternatives. She would like to try 1 today for diagnostic and therapeutic purposes. She was provided 1 in her right sinus Tarsi area. She also requests a refill of her ibuprofen prescription which was provided today for 600 mg every 8 hours as needed. Plan to see her back in 2 months for recheck to monitor progress. No x-rays at that visit. Patient agrees with the plan, all questions answered. [email or web address] Not available 11/12/2023 18:59:22 01/16/2024 01/16/2024 Foot and Ankle Follow-up Patient Note CC/Diagnosis: Hx of bilateral clubfoot s/p surgical correction as a child, hx of right triple hindfoot arthrodesis 2021, HWR, ankle arthroscopy, dorsal talus exostectomy in 2022 with ongoing right anterolateral ankle and hindfoot pain. - Hx of arthrogryposis, hx of bilateral clubfoot s/p surgical correction as a child at [facility] - S/p right triple hindfoot arthrodesis, CINTHIA 08/11/[address] Echeverria - S/p right ankle arthroscopy w/ synovectomy, right TN HWR, dorsal talus exostectomy 06/27/[address] Echeverria HPI: Damaris presents for routine follow-up. Last seen 2 months ago. At her last visit she had a right ST CSI. Doing OK. Reports she just got back from vacation in [place] in which she increased her activity and is now reporting some left ankle pain. Denies any trauma. Points to the sinus Tarsi area as the area of most pain. Right ankle is not bothering her as much. He is having some positive effects from the corticosteroid injection. Requesting x-rays. Besides pain on the left she has no other complaints today. Lives in [place], not currently working, nondiabetic, non-smoker Past family history, medical history, social history, allergies, and review of systems has been reviewed, updated and are located in the patient's chart. PHYSICAL EXAM: Constitutional: Healthy appearing individual in no acute distress Psychiatric: Alert and oriented Respiratory: Unlabored breathing Lymphatic: No lymphadenopathy in the foot/ankle Skin: No open wounds CV: Palpable pedal pulses Neuro: Light touch grossly intact MSK: Focused examination of the right foot and ankle- On standing exam her ankle and hindfoot alignment is approximately neutral. Foot is plantigrade. Unequal exam bilaterally. On the left her ankle and hindfoot alignment are in slight varus. She has adduction of her foot. The foot is plantigrade. No significant cavus. On seated exam her skin is intact. Surgical incisions are well-healed. She has swelling at the anterolateral ankle and hindfoot. Tender in this area. She has a 20 degree arc of motion of the ankle. She is able to get to neutral. Limited hindfoot and subtalar range of motion as expected. She is able to actively flex and extend at the ankle. Reports sensation intact light touch in all distributions. Palpable DP pulse. Foot warm well-perfused. Focused examination of the left foot and ankle- Ankle, hindfoot in slight varus. Abduction through the TN joint. Cavus of the foot. Skin intact. TTP in sinus tarsi area. Ankl ROM 20 degrees, able to get to neutral. Limited arc of subtalar and hindfoot motion. She is able to actively flex and extend at the ankle. Reports sensation intact light touch in all distributions. Palpable DP pulse. Foot warm well-perfused. IMAGING: X-Rays ordered, obtained, and reviewed at [facility]: 3 weightbearing x-rays of the left ankle, 2 weightbearing x-rays left foot, AP comparison to the foot and ankle reveal patient has sequelae of prior clubfoot deformity with hypoplastic talus, degenerative changes of the hindfoot. Abduction of the foot, cavus alignment. Prior WB XR right foot and ankle reviewed. S/p triple hindfoot arthrodesis. She has a hypoplastic talus. Her mortise is intact, dysmorphic. She appears to have well consolidated fusion of her triple hindfoot arthrodesis. Dorsal midfoot osteophytes present. No evidence of hardware complication. CT scan right 10/31/2023 ([facility]) reviewed. Patient has a dysmorphic tibiotalar joint with mild degenerative change. Status post triple hindfoot arthrodesis. Fusion sites with appropriate bony bridging. Hardware without evidence of complication. No obvious lateral impingement. Naviculocuneiform arthritis present. ASSESSMENT: Hx of bilateral clubfoot s/p surgical correction as a child, hx of right triple hindfoot arthrodesis 2021, HWR, ankle arthroscopy, dorsal talus exostectomy in 2022 with ongoing right anterolateral ankle and hindfoot pain PLAN: We had a detailed discussion regarding her diagnosis, treatment today, plan moving forward. Reviewed her imaging findings. Again emphasized conservative measures. Given her age and activity level I would recommend against further surgery at this time and unless completely necessary. She does have deformity of the left foot and ankle. It is not as significant as the right was prior to her previous surgery. She does not have significant degenerative change. Function remains intact. Discussed conservative measures including corticosteroid injection. She is not interested today. At this point she should see me back on an as-needed basis moving forward. Also discussed in light of the complexity of her issue I am happy to get her a second opinion should she want 1. No x-rays at the next visit. Patient agrees with plan, all questions answered. [email or web address] Not available 01/16/2024 17:01:01 08/21/2024 08/21/2024 I am seeing the patient today under the supervision of Dr Sawyer who was available but who did not see the patient. [email or web address] Not available 08/21/2024 13:32:41 12/27/2024 12/27/2024 I am seeing the patient today under the supervision of Dr Sawyer who was available but who did not see the patient. [email or web address] Not available 12/27/2024 13:45:00 Plan of Treatment Reminders Order Date Submit Date Provider Last Modified By Organization Details Last Modified Time Details Appointments None recorded. Lab None recorded. Referral None recorded. Procedures None recorded. Surgeries None recorded. Imaging XR, ankle, 3 or more view - 3V LEFT ANKLE WB ROOM 4 2023 024 [facility], [address], [facility] [address], [place], [address], 4 13:12:58 XR, foot, 2 view - 2V LEFT FOOT WB ROOM 4 2023 024 [facility], [address], [facility] [address], [place], [address], 4 13:12:58 Medication Orders ibuprofen 600 mg tablet 2023 024 [email or web address] [id number], [address], [place], [address], 4 17:34:33 Patient TargetsNo targets recorded. Patient InstructionsNo instructions recorded. Reason for Referral None Reported. Results Created Date Observation Date Name Description Value Unit Range Abnormal Flag Note LastModifiedBy Organization Detail LastModifiedTime 11/02/19 24 10/31/2023 imagi ng inter preta tion No observ ation record ed. [email or web address] [facility] [place] [address] [facility] [address], [place], [address], 11/10/2023 15:56:48 01/16/20 24 01/16/2024 XR, ankle , 3 or more view [email or web address]:/ [email or web address] ?Encry pted=s hAaTro YD8dLq bEUv6g %2BXZw aYqtaq 0bqfl% 2Fg9IQ a4ajBk vP9nXo QUaueC m3YtLR FvZl JJ8mAn HZtai3 2v0855 AC0Kra 3iNVKT eUC8mr 84%3D INTERFACE [facility] [address], [place], [address], 01/16/2024 15:31:48 01/16/20 24 01/16/2024 XR, ankle , 3 or more view http:/ [email or web address] ?Encry pted=s hAaTro YD8dLq bEUv6g %2BXZw aYqtaq 0bqfl% 2Fg9IQ a4ajBk vP9nXo QUaueC m3YtLR FvZl JJ8[place] HZtai3 8j5365 AC0Kra 3iNVKT eUC8mr 84%3D INTERFACE [facility] [address], [place], [address], 01/16/2024 15:31:50 01/16/20 24 01/16/2024 XR, foot, 2 view http:/ [email or web address] ?Encry pted=s hAaTro YD8dLq bEUv6g %2BXZw aYqtaq 0bqfl% 2Fg9IQ a4ajBk vP9nXo QUaueC m3YtLR FvZlg JJ8mAn HZtai3 0z6522 AC0Kra 3iNVKX eUC8mr 84%3D INTERFACE [facility] [address], [place], [address], 01/16/2024 15:34:18 01/16/20 24 01/16/2024 XR, foot, 2 view http:/ [email or web address] ?Encry pted=s hALuc YD8dLq bEUv6g %2BXZw aYqtaq 0bqfl% 2Fg9IQ a4ajBk vP9nXo QUaueC m3YtLR FvZlgJ JJ8mAn HZtai3 8k5025 AC0Kra 3iNVKX eUC8mr 84%3D INTERFACE [facility] [address], [place], [address], 01/16/2024 15:34:20 01/27/20 24 09/03/2021 imagi ng/di agnos tic resul t No observ ation record ed. [email or web address] Not Available 12/29 02:08:12 01/27/20 24 12/06/2021 imagi ng/di agnos tic resul t No observ ation record ed. [email or web address] Not Available 12/29 02:08:23 01/27/20 24 03/09/2021 imagi ng/di agnos tic resul t No observ ation record ed. [email or web address] Not Available 12/29 02:08:31 01/27/20 24 02/04/2021 imagi ng/di agnos tic resul t No observ ation record ed. [email or web address] Not Available 12/29 02:08:35 01/27/20 24 02/04/2021 imagi ng/di agnos tic resul t No observ ation record ed. [email or web address] Not Available 12/29 02:08:51 Result Notes Documentation Provider Name and Address Organization Details Recorded Time Xr, Ankle, 3 Or More View : [email or web address]? Encrypted=sdQuYjyTV6rAaxB Uv6g%1ESDoiNqnzn8eylu%2Fg 3YMg2bmGvhT3jHaOFqvyUm1Am JWGbFinIDN8zXsHFrnp22q042 3RO5Ivf7sSCZXiDY2be99%3D Not Available [employer] 01/16/2024 15:3 1:48 Xr, Ankle, 3 Or More View : [email or web address]? Encrypted=hiFnKucQU6yNeiL Uv6g%7SYEfjTjvpo1ctlk%2Fg 2ULw8auBkhG4sMwKIcqsAi7Lx XDOhPxhQZB5vKsDTssr44h621 0RG1Apk4vXXSMbNC4cb84%3D Not Available [facility] 01/16/2024 15:3 1:51 Xr, Foot, 2 View : [email or web address]? Encrypted=bvZdTmjCY0hZjyC Uv6g%9CFUjsYemmg4flap%2Fg 6MRn4rhDsmX4wOuSMmtwHp4Va HMBzOkrIFE7eZwHOwlk17g205 2ES3Mlx6dDADDqMN8em91%3D Not Available [facility] 01/16/2024 15:3 4:19 Xr, Foot, 2 View : [email or web address] Encrypted=lmQmNyqBU0pLxsU Uv6g%8JGFedTiuty7scvd%2Fg 6NHm7hlBeuP5gPqPDbvyLe8Ma PBYsOwiVCC6cWlELpzh43u330 8UF6Fdz2cVEGXkFL9xo73%3D Not Available [facility] 01/16/2024 15:3 4:21 Problems Name Problem SNOMED Code Status Onset Date Resolution Date Notes Provider Name and Address Organization Details Recorded Time Bilateral osteoarthri tis of knees 1271136317550 07 Active 2023 LILY moe [place] - [facility] 4 14:28:11 Problem Notes None recorded. Procedures Surgical History Date Name Laterality Status Provider Name and Address Organization Details Recorded Time 5 Gel-One Knee Injection completed Eduardo Carranza PA-C [address], [place], [address], [place] [facility] 12/27/2024 14:25:28 5 JZKNEE INJ Lc completed Eduardo Carranza PA-C [address], [place], [address], [facility] 08/21/2024 13:32:36 4 Ankle Joint Asp & Inj, L/R Celestone 2cc completed Bashir Street MD [address], [place], [address], [facility] 11/12/2023 18:59:52 4 JZKNEE INJ Lc completed [facility] 10/18/2023 14:28:11 3 [facility] 10/18/2023 14:28:31 2 Ankle/Foot Surgery completed [facility] 10/18/2023 14:28:31 Imaging Results None recorded. Procedure Notes None recorded. Medical Equipment None Reported. Allergies Allergen ID Allergen Name Allergen Category Reaction Reaction Severity Criticality Documentation Date Start Date Code Code System Note Provider Name and Address Organization Details Recorded Time 13635 amoxicill in trihydrat e medicatio n Not available Not available Not available 07/31/20232020 95435 8 RxNorm Not Available [facility] 4 12:32:00 29749 Bactrim medicatio n Not available Not available Not available 07/31/20232020 13896 9 RxNorm Not Available [facility] 4 12:32:00 Medications Name Sig Start Date Stop Date Status Note LastModified by Organization Details LastModified Time d3-1000 25 mcg (1000 ut) caps active Not Available Not Available Not Available melatonin 3 mg tabs active Not Available Not Available Not Available melatonin 5 mg tabs active Not Available Not Available No t Available doxycycline hyclate 100 mg capsule TAKE 1 CAPSULE BY MOUTH TWICE DAILY FOR 10 DAYS active Not Available Not Available No t Available ketoconazol e 2 % shampoo APPLY TO WET HAIR LET SIT FOR 3 MINS THEN RINSE. USE EVERY 3 DAYS FOR 8 WEEKS active Not Available Not Available No t Available cetirizine 10 mg tablet TAKE 1 TABLET BY MOUTH TWICE A DAY active Not Available Not Available No t Available azithromyci n 250 mg tablet active Not Available Not Available Not Available ketotifen 0.025 % (0.035 %) eye drops INSTILL 1 DROP INTO BOTH EYES TWICE DAILY NEEDED active Not Available Not Available No t Available senna 8.6 mg tablet TAKE 1 TABLET BY MOUTH DAILY NEEDED FOR CONSTIPAT ION active Not Available Not Available No t Available meloxicam 15 mg tablet TAKE 1 TABLET BY MOUTH DAILY active Not Available Not Available No t Available famotidine 40 mg tablet TAKE 1 TABLET BY MOUTH TWICE A DAY active Not Available Not Available No t Available prednisone 20 mg tablet TAKE 2 TABLETS BY MOUTH DAILY FOR 5 DAYS active Not Available Not Available No t Available fluoxetine 10 mg tablet PLEASE SEE ATTACHED FOR DETAILED DIRECTION S active Not Available Not Available No t Available cromolyn 4 % eye drops INSTILL 2 DROPS INTO EACH EYE EVERY 3-4 HOURS WHILE AWAKE active Not Available Not Available No t Available hydroxyzine pamoate 50 mg capsule TAKE1 CAPSULE (50 MG) NIGHTLY FOR SLEEP active Not Available Not Available No t Available melatonin 3 mg tablet TAKE 1 TABLET BY MOUTH DAILY AT BEDTIME active Not Available Not Available No t Available baclofen 20 mg tablet TAKE 1 TABLET BY MOUTH TWICE A DAY NEEDED FOR MUSCLE SPASM active Not Available Not Available No t Available propranolol 10 mg tablet TAKE 1 TABLET DAILY NEEDED FOR ANXIETY/P ANIC ATTACK HOLD DOSAGE FOR HR <55 SBP<100 DBP<60 active Not Available Not Available No t Available famotidine 20 mg tablet TAKE 1 TABLET BY MOUTH TWICE A DAY active Not Available Not Available No t Available metoclopram parminder 5 mg tablet TAKE 1 TABLET FOUR TIMES DAILY BEFORE MEALS/BED TIME FOR 30 DAYS active Not Available Not Available No t Available Mapap (acetaminop hen) 500 mg capsule TAKE 2 CAPSULE BY MOUTH 4 TIMES A DAY, NEEDED FOR MODERATE PAIN active Not Available Not Available No t Available baclofen 10 mg tablet TAKE 1 TABLET BY MOUTH TWICE A DAY NEEDED FOR MUSCLE SPASMS 09/25 completed Not Available Not Available Not Available nortriptyli ne 10 mg capsule TAKE 1 TO 2 CAPSULES BY MOUTH AT BEDTIME active Not Available Not Available No t Available tacrolimus 0.1 % topical ointment PLEASE SEE ATTACHED FOR DETAILED DIRECTION S active Not Available Not Available No t Available fluoxetine 20 mg tablet TAKE 2 TABLETS BY MOUTH WITH 10 MG DAILY FOR 7 DAYS THEN TAKE 1 TABLET OF 60 MG DAILY active Not Available Not Available No t Available fluoxetine 10 mg capsule active Not Available Not Available Not Available gabapentin 300 mg capsule TAKE 1 CAPSULE BY MOUTH EVERY MORNING AND 2 CAPSULES AT BEDTIME active Not Available Not Available No t Available sertraline 25 mg tablet TAKE 1 TABLET BY MOUTH DAILY active Not Available Not Available No t Available omeprazole 20 mg capsule,del ayed release TAKE 1 CAPSULE BY MOUTH DAILY active Not Available Not Available No t Available montelukast 10 mg tablet TAKE 1 TABLET BY MOUTH EVERYDAY AT BEDTIME active Not Available Not Available No t Available mometasone 0.1 % topical ointment APPLY TWICE A DAY NEEDED. AVOID USE ON THE FACE AND GROIN active Not Available Not Available No t Available clobetasol 0.05 % topical ointment APPLY TO ECZEMA TWICE DAILY NEEDED. AVOID USE ON THE FACE AND GROIN active Not Available Not Available No t Available epinephrine 0.3 mg/0.3 mL injection, auto-inject or INJECT INTO OUTER THIGH NEEDED FOR ANAPHYLAX IS AND THEN CALL 911 active Not Available Not Available No t Available ibuprofen 600 mg tablet TAKE 1 TABLET BY MOUTH EVERY 8 HOURS active Not Available Not Available No t Available polyethylen e glycol 3350 17 gram/dose oral powder TAKE 17 GM EVERY DAY active Not Available Not Available No t Available methylpredn isolone 4 mg tablets in a dose pack FOLLOW PACKGE DIRECTION S active Not Available Not Available No t Available norethindro ne (contracept venkata) 0.35 mg tablet TAKE 1 TABLET BY MOUTH EVERY DAY active Not Available Not Available No t Available oxybutynin chloride 5 mg tablet TAKE 1 TABLET BY MOUTH THREE TIMES A DAY active Not Available Not Available No t Available ondansetron 4 mg disintegrat ing tablet DISSOLVE 1 TABLET UNDER TONGUE EVERY 8 HOURS active Not Available Not Available No t Available fluoxetine 20 mg capsule TAKE 1 CAPSULE BY MOUTH DAILY active Not Available Not Available No t Available fluticasone propionate 50 mcg/actuati on nasal spray,suspe nsion USE 1 SPRAY IN EACH NOSTRIL TWICE A DAY active Not Available Not Available No t Available Ventolin HFA 90 mcg/actuati on aerosol inhaler INHALE 2 PUFFS BY MOUTH EVERY 6 HOURS NEEDED FOR SHORTNESS OF BREATH OR WHEEZING active Not Available Not Available No t Available hydroxyzine pamoate 25 mg capsule TAKE 1 CAPSULE (25 MG) TO TWO CAPSULES (50 MG) NIGHTLY FOR SLEEP/ANX IETY active Not Available Not Available No t Available azithromyci n 500 mg tablet TAKE 1 TABLET BY MOUTH DAILY active Not Available Not Available No t Available divalproex ER 250 mg tablet,exte nded release 24 hr TAKE 1 TABLET BY MOUTH EVERY DAY active Not Available Not Available No t Available Vitamin D3 25 mcg (1,000 unit) capsule TAKE 1 CAPSULE BY MOUTH EVERY DAY active Not Available Not Available No t Available pregabalin 75 mg capsule TAKE 1 CAPSULE BY MOUTH TWICE A DAY active Not Available Not Available No t Available Benadryl Allergy once a day/QHS PRN ITCHING 02/09 completed Statu s: 'Disc ontin ued'; Not Available Not Available Not Available Advair HFA 115 mcg-21 mcg/actuati on aerosol inhaler INHALE 2 PUFFS BY MOUTH EVERY 12 HOURS active Not Available Not Available No t Available Symbicort 160 mcg-4.5 mcg/actuati on HFA aerosol inhaler INHALE 2 PUFFS BY MOUTH TWICE DAILY active Not Available Not Available No t Available Chest Congestion Relief 100 mg/5 mL oral liquid TAKE 5 ML BY MOUTH EVERY 4 HOURS FOR 10 DAYS NEEDED FOR COUGH active Not Available Not Available No t Available Ferretts 325 mg (106 mg iron) tablet TAKE 1 TABLET BY MOUTH EVERY DAY active Not Available Not Available No t Available melatonin 5 mg tablet TAKE 1 TABLET BY MOUTH EVERY NIGHT AT BEDTIME NEEDED FOR INSOMNIA active Not Available Not Available No t Available cholecalcif esther (vitamin D3) 50 mcg (2,000 unit) capsule TAKE 1 CAPSULE DAILY FOR VITAMIN D DEFICIENC Y active Not Available Not Available No t Available oxycodone HCl-oxycodo ne-ASA four times a dayDO NOT DRIVE WHILE TAKING THIS MEDICATIO N 02/09 completed Statu s: 'Disc ontin ued'; Not Available Not Available Not Available Dulera 100 mcg-5 mcg/actuati on HFA aerosol inhaler TAKE 1 PUFF TWICE A DAY active Not Available Not Available No t Available Asmanex HFA 200 mcg/actuati on aerosol inhaler TAKE 2 PUFFS BY MOUTH TWICE A DAY active Not Available Not Available No t Available multivitami n with minerals-fe rrous fumarate 15 mg iron tablet TAKE 1 TABLET BY MOUTH EVERY DAY active Not Available Not Available No t Available Vitals Date Recorded Body height Body mass index (BMI) Body weight Provider Name and Address Organization Details Last Updated DateTime 08/21/2024 149.86 cm 30.3 kg/m2 57880.86 g Mario Nicholson [facility] 08/21/2024 13:14:06 Date Recorded Body height Body mass index (BMI) Body weight Provider Name and Address Organization Details Last Updated DateTime 11/10/2023 149.86 cm 30.3 kg/m2 41304.86 g Karen Henriquez [facility] 11/10/2023 15:44:40 Date Recorded Body height Body mass index (BMI) Body weight Provider Name and Address Organization Details Last Updated DateTime 12/27/2024 149.86 cm 30.3 kg/m2 29780.86 g Mario [facility] 12/27/2024 13:45:20 Date Recorded Body height Body mass index (BMI) Body weight Provider Name and Address Organization Details Last Updated DateTime 01/16/2024 149.86 cm 30.3 kg/m2 02117.86 g Karen Henriquez [facility] 01/16/2024 15:03:46 Social History Question Answer Notes LastModified by [employer] Details LastModified Time Tobacco Smoking Status [facility]/18/2023 14:28:31 What Is Your Relationship Status? Single Information not available 10/18/2023 Sex: Unknown Functional Status Question Answer Note LastModified by [employer] Details LastModified Time How many times per week do you consume alcohol? Less than 1 time per week Information not available 10/18/2023 Do you use any illicit or recreational drugs? No Information not available 10/18/2023 Do you or have you ever used any other forms of tobacco or nicotine? No Information not available 10/18/2023 Do you or have you ever used e-cigarettes or vape? Never used electronic cigarettes Information not available 10/18/2023 Mental Status None recorded. Family History Nothing Reported. Medical History Condition Response Allergies/Hayfever Y Anxiety/Depression Y Anemia Y Arthritis Y Asthma Y Gynecological HistoryNo gynecological history recorded. Obstetrics History GPAL:G 0 P 0 0 0 0 Past Encounters Encounter ID Performer Location Encounter Start Date Encounter Closed Date Diagnosis/Indication Diagnosis SNOMED-CT Code Diagnosis ICD10 Code Diagnosis IMO Codes Diagnosis Note [id number] MD [facility] [address] [place] [address] 09/26/2023 14:28:31 10/12/2023 15:36:56 Pain in right foot 6137814727 60460 M79.133 [id number] Eduardo Carranza PA-C [facility] [address] [place] [address] 10/18/2023 14:22:01 11/09/2023 13:08:16 Bilateral osteoarthritis of knees 2944292804 [id number] MD [facility] [address] [place] [address] 11/10/2023 15:41:31 12/14/2023 17:44:06 Pain of right ankle joint 8504448233 2692240 M25.571 Pain in right foot 10224 37622 54242 M79.494 [id number] MD N[facility] [address] [place] [address] 01/16/2024 14:55:19 02/01/2024 13:12:58 Pain in left foot 6845926695 09111 M79.672 Pain of ri ght ankle joint 2010227775 8370507 M25.571 Pain in right foot 66762 43848 04952 M79.820 [id number] Eduardo Carranza PA-C [facility] [address] [place] [address] 08/21/2024 13:07:02 09/03/2024 13:51:04 Bilateral osteoarthritis of knees 3609724949 89473 M17.0 [id number] Eduardo Carranza PA-C [facility] [place] [address] [place] [address] 12/27/2024 13:34:52 01/07/2025 14:31:13 Bilateral osteoarthritis of knees 5215534621 99035 M17.0 Health Concerns Section Related Observation LastModified by Organization Detai ls LastModified Time None Recorded Concern Status LastModified by Organization Details LastModified Time None Recorded Advance Directives Directive None Recorded Payers Insurance Date Sequence Insurance Name Policy Number Policy Barraza Covered Member ID Barraza Member ID Guarantor Name 01/07/2025 1 [facility] (MEDICAID HMO) [id number] Damaris Higgins [id number] Damaris Higgins OBGyn Episode No OBEpisode recorded.
--- OUTSIDE RECORDS SUMMARY | 2025-05-12 21:49 | XMS_ITS | Encounter Summary ---
Author Organization [facility] Address [address] [place] [address] Phone Care Team Providers Care Product Builder Name Role Phone Ann De MD Primary Care Provider Unava ilable Encounter Details Date Type Department Care Team (Late st Contact Info) Description 01/12/2017 Conversion Encounter [facility] - [address] [address] Social History Tobacco Use Types Packs/Day Years [...] on filedocumented in this encounter Care Teams Product Builder Relationship Specialty Start Date End Date Ann De MD PCP - General 01/06/17 documented as of this encounter
--- OUTSIDE RECORDS SUMMARY | 2025-05-12 21:49 | XMS_ITS | Encounter Summary ---
Author Organization [facility] Address [address] [place] [address] Phone Care Team Providers Care Research & Insights Executive Name Role Phone Ann De MD Primary Care Provider Unava ilable Encounter Details Date Type Department Care Team (Late st Contact Info) Description 10/18/2016 Documentation EM Family Medicine [facility] [place] [id number] Family Medicine, Physician [address] [place] [phone] Social History Tobacco Use Types Packs/Day Years [...] on filedocumented in this encounter Care Teams Research & Insights Executive Relationship Specialty Start Date End Date Ann De MD PCP - General 01/06/17 documented as of this encounter
--- OUTSIDE RECORDS SUMMARY | 2025-05-12 21:49 | XMS_ITS | Encounter Summary ---
Author Organization [facility] Address [address] [phone] Phone Care Team Providers Care Elevator Runner Name Role Phone Ann De MD Primary Care Provider Unava ilable Encounter Details Date Type Department Care Team (Late st Contact Info) Description 09/28/2016 Documentation EM Family Medicine [facility] [place], [place] [id number] Family Medicine, Physician [address] [place] [address] Social History Tobacco Use Types Packs/Day Years [...] on filedocumented in this encounter Care Teams Elevator Runner Relationship Specialty Start Date End Date Ann De MD PCP - General 01/06/17 documented as of this encounter
--- OUTSIDE RECORDS SUMMARY | 2025-05-12 21:49 | XMS_ITS | Encounter Summary ---
Author Organization [facility] Address [address] [phone] Phone Care Team Providers Care Gis Software Engineer Name Role Phone Ann De MD Primary Care Provider Unava ilable Encounter Details Date Type Department Care Team (Late st Contact Info) Description 12/06/2016 Documentation EM Family Medicine [facility] [place], [place] [phone] Family Medicine, Physician [address] [place] [address] Social History Tobacco Use Types Packs/Day Years [...] on filedocumented in this encounter Care Teams Gis Software Engineer Relationship Specialty Start Date End Date Ann De MD PCP - General 01/06/17 documented as of this encounter
--- OUTSIDE RECORDS SUMMARY | 2025-05-12 21:49 | XMS_ITS | Clinical Summary ---
Author Organization [facility] Address [address] [place] [address] Care Team Providers Care Mortgage Closer Name Role Phone Unavailable Primary Care Provider [...] Cervical Cancer Screening: P ap Smear 08/08/2016 HPV Vaccines (1 - 3-dose SCD M series) 08/08/2022 HIV Screening 03/29/2024 Hepatitis C Screening 03/29/2024 Social Influencers of Health Screening 03/29/2024 Depression Screening 05/29/2024 COVID-19 Vaccine ( - 2024-2 6 season) 2025 Influenza Vaccine (#1) 2025 RSV Immunization Adult Patie nts (1 - 1-dose 75+ series) 08/08/2070 HIB Vaccines Aged Out No longer eligi [...]
--- OUTSIDE RECORDS SUMMARY | 2025-05-12 21:49 | XMS_ITS | Encounter Summary ---
Author Organization [facility] Address [address] [phone] Phone Care Team Providers Care Project Safety Manager Name Role Phone Ann De MD Primary Care Provider Unava ilable Encounter Details Date Type Department Care Team (Late st Contact Info) Description 04/21/2014 Documentation EM Family Medicine [facility] [place] [address] Family Medicine, Physician [address] [place] [phone] Social History Tobacco Use Types Packs/Day Years [...] on filedocumented in this encounter Care Teams Project Safety Manager Relationship Specialty Start Date End Date Ann De MD PCP - General 01/06/17 documented as of this encounter
== END 2025-05-12 15:50 | disposition home or self-care (01) ==
LOC: HO.HPS 15:19
PROVIDERS: PCP Student in an Organized Health Care Education/Training Program; Visit Provider Hospitalist
DX: J45.40 Moderate persistent asthma, uncomplicated (principal); R09.81 Nasal congestion; K21.9 Gastro-esophageal reflux disease without esophagitis; T78.40XD Allergy, unspecified, subsequent encounter; J38.5 Laryngeal spasm; J38.3 Other diseases of vocal cords; R13.10 Dysphagia, unspecified
CPT/HCPCS: 99214

== ENCOUNTER → 2025-05-12 15:19 | Outpatient (BNVA) | payer OTHER, SELFPAY | PROVIDERS: PCP Student in an Organized Health Care Education/Training Program; Visit Provider Hospitalist | DX: J45.40 Moderate persistent asthma, uncomplicated (principal); R09.81 Nasal congestion; K21.9 Gastro-esophageal reflux disease without esophagitis; T78.40XD Allergy, unspecified, subsequent encounter; J38.5 Laryngeal spasm; J38.3 Other diseases of vocal cords; R13.10 Dysphagia, unspecified; Z79.899 Other long term (current) drug therapy | CPT/HCPCS: 99212 ==